=== PATIENT | male | born 1940 | race Caucasian/White ===

== ENCOUNTER 2021-05-11 22:35 | Inpatient (IN) | payer MEDICARE, OTHER ==
[~2021-05-11] VITALS: Ht 175.3 cm; Wt 103.9 kg
[2021-05-11] MEDS ORDERED: METHYL SALICYLATE/MENTHOL TOPICAL OINTMENT 57GM TUBE. TP PRN (23:00)
[2021-05-11] MEDS ORDERED: MAGNESIUM HYDROXIDE 2,400 MG/30 ML ORAL.SUSP. PO PRN (23:00)
[2021-05-11] MEDS ORDERED: ACETAMINOPHEN 325 MG TABLET PO PRN (23:00)
--- NOTE | 2021-05-11 23:08 | NUR ---
Admission Note with Justification for Admission to [facility] Patient admitted to [facility] for protective oversight for emergency stabilization of acute psychiatric crisis. Pt admitted from: [facility]/ Home Mode of arrival: [facility] Accompanied By: [facility] Staff Precipitating behaviors that initiated intake and admission: SI thoughts/plan to jump off balcony at his house; recent family stressors, argument with family members; increased depression, crying spells, and insomnia. Description of failure of out patient attempts at stabilization in previous setting list behavior and medication trials: Put on Effexor, Remeron, and Trazodone; monthly Tele psych appointments, and ER visit. Behaviors and assessment findings upon admission: Pt calm, cooperative, and appropriate during encounter. Pt answers questions readily and appropriately. Pt reports that he currently has SI thoughts with plan to wrap a sheet around his neck and jump off his balcony at home and "pull a Nigel Rigo". Pt reports SI thoughts have been constant recently and have become more intense causing him to seek help at the ER. Pt room swept for contraband and pt placed within LOS to the nurse's station. Plan: Admit for protective oversight for adjustment and stabilization of medications, behaviors and mood. Intense treatment regimen including groups, medication adjustments, therapy, consistent regimen for ADL's, self care, and sleep hygiene. Daily monitoring by Inpatient staff, Psychiatry, and Medical Physician.
[2021-05-11 23:34] VITALS: BP 109/69
[2021-05-12] MEDS ORDERED: CARV25TA PO (00:17)
[2021-05-12] MEDS ORDERED: DOCU100C28 PO (00:17)
[2021-05-12] MEDS ORDERED: ACET500T68 PO (00:17)
[2021-05-12] MEDS ORDERED: CARB1DRO20 OP (00:17)
[2021-05-12] MEDS ORDERED: TIMO5DRO7 OD (00:17)
[2021-05-12] MEDS ORDERED: MELA3TAB43 PO (00:17)
[2021-05-12] MEDS ORDERED: GABA-586 PO (00:17)
[2021-05-12] MEDS ORDERED: FURO20TA3 PO (00:17)
[2021-05-12] MEDS ORDERED: METH-559 PO (00:17)
[2021-05-12] MEDS ORDERED: MIRT-8 PO (00:17)
[2021-05-12] MEDS ORDERED: folic acid PO (00:17)
[2021-05-12] MEDS ORDERED: TRAZ-120 PO (00:17)
[2021-05-12] MEDS ORDERED: LISI-517 PO (00:17)
[2021-05-12] MEDS ORDERED: TAMS0.4C97 PO (00:17)
[2021-05-12] MEDS ORDERED: METH5TAB12 PO (00:17)
[2021-05-12] MEDS ORDERED: VENL37.5 PO (00:17)
[2021-05-12] MEDS ORDERED: LEVE750T41 PO (00:17)
[2021-05-12] MEDS ORDERED: AMLO5TAB4 PO (00:17)
[2021-05-12] MEDS ORDERED: OMEP20CA16 PO (00:17)
[2021-05-12] MEDS ORDERED: ATOR20TA58 PO (00:17)
[2021-05-12] MEDS ORDERED: PRED5DRO20 OS (00:17)
[2021-05-12] MEDS ORDERED: RIBO100T3 PO (00:17)
[2021-05-12] MEDS ORDERED: SODI15DR5 EACHEYE (00:17)
[2021-05-12] MEDS ORDERED: NITR0.4T24 SL (00:17)
[2021-05-12] MEDS ORDERED: ATRO2DRO3 OS (00:17)
[2021-05-12] MEDS ORDERED: CYAN100031 PO (00:17)
[2021-05-12] MEDS ORDERED: ASPI-889 PO (00:17)
[2021-05-12] MEDS ORDERED: SODIUM CHLORIDE 5% OPHTH SOLUTION 15ML BOTTLE. OU PRN (00:30)
[2021-05-12] MEDS ORDERED: METHYLPHENIDATE HCL 5 MG TABLET PO PRN (00:30)
[2021-05-12] MEDS ORDERED: NITROGLYCERIN SUBLINGUAL 0.4 MG BOTTLE OF 25. SL PRN (00:30)
[2021-05-12] MEDS ORDERED: DOCUSATE SODIUM 100 MG CAPSULE PO PRN (00:30)
[2021-05-12] MEDS ORDERED: POTA20TA4 PO (00:35)
[2021-05-12] MEDS ORDERED: MELATONIN 3 MG TABLET PO PRN (00:45)
[2021-05-12] MEDS ORDERED: POLYVINYL ALCOHOL 1.4% OPHTH SOLUTION 15ML BOTTLE. OU PRN (01:00)
[2021-05-12 05:25] VITALS: BP 144/71
--- NOTE | 2021-05-12 06:33 | EKG ---
[address] [address] Test Date: 2021-05-12 Test Time: 05:17:59 Pat Name: SARWAT FERMIN Department: Room: [address] [place] [address] Gender: M Actuarial Associate: : 1940 Requested By: MICKY WHEELER Order Number: [id number] Reading MD: Measurements Intervals [place] Rate: P: NH: QRS: QRSD: T: QT: QTc: Interpretive Statements
[2021-05-12] MEDS: CARVEDILOL 12.5 MG TABLET PO SCH ×2 (08:00→17:00)
[2021-05-12 08:14] LABS: BASO % 1 % (0-3); EOS # 0.2 x10^3/uL (0.0-0.7); EOS % 3 % (0-3); HEMATOCRIT 39.7 % (39.0-53.0); HEMOGLOBIN 13.3 g/dL (13.0-17.5); LYMPH # 0.8 x10^3/uL (1.0-4.8); LYMPH % 15 % (24-48); MEAN CORPUSCULAR HEMOGLOBIN 31 pg (25-35); MEAN CORPUSCULAR HGB CONC 33 g/dL (31-37); MEAN CORPUSCULAR VOLUME 93 fL (79-100); MONO # 0.4 x10^3/uL (0.0-1.1); MONO % 8 % (0-9); NEUT # 4.1 x10^3uL (1.8-7.7); NEUT % 74 % (31-73); PLATELET COUNT 96 x10^3/uL (140-400); RED BLOOD COUNT 4.26 x10^6/uL (4.30-5.70); RED CELL DISTRIBUTION WIDTH 14.4 % (11.5-14.5); WHITE BLOOD COUNT 5.6 x10^3/uL (4.0-11.0)
[2021-05-12 08:16] LABS: ALBUMIN/GLOBULIN RATIO 0.8 (1.0-1.7); CALCIUM 8.1 mg/dL (8.5-10.1); CREATININE 1.2 mg/dL (0.7-1.3); GFR 58.3; MAGNESIUM 2.4 mg/dL (1.8-2.4); POTASSIUM 4.2 mmol/L (3.5-5.1); TOTAL BILIRUBIN 0.3 mg/dL (0.2-1.0)
[2021-05-12] MEDS: levETIRAcetam 500 MG TABLET PO SCH ×2 (08:43→20:07)
[2021-05-12] MEDS: GABAPENTIN 300 MG CAPSULE. PO SCH ×3 (08:44→20:07)
[2021-05-12] MEDS: amLODIPine BESYLATE 5 MG TABLET PO SCH (08:44)
[2021-05-12] MEDS: LISINOPRIL 5 MG TABLET. PO SCH (08:44)
[2021-05-12] MEDS: ASPIRIN ENTERIC COATED 81 MG TABLET.DR. PO SCH (08:44)
[2021-05-12] MEDS: POTASSIUM CHLORIDE 20 MEQ TABLET.ER. PO SCH (08:44)
[2021-05-12] MEDS: TAMSULOSIN 0.4 MG CAP.ER.24H. PO SCH (08:44)
[2021-05-12] MEDS: CYANOCOBALAMIN (VITAMIN B-12) 1,000 MCG TABLET. PO SCH (08:44)
[2021-05-12] MEDS: FOLIC ACID 1 MG TABLET PO SCH (08:45)
[2021-05-12] MEDS: PANTOPRAZOLE 40 MG TABLET. PO SCH (08:45)
[2021-05-12] MEDS: FUROSEMIDE 20 MG TABLET PO SCH (08:45)
[2021-05-12] MEDS: DEXAMETHASONE 0.1% OPHTH SOLUTION 5ML BOTTLE. OS SCH ×4 (09:00→20:07)
[2021-05-12] MEDS: RIBOFLAVIN 100 MG PO SCH (09:00)
[2021-05-12] MEDS: TIMOLOL 0.25% OPHTH SOLUTION 5ML BOTTLE. OD SCH ×2 (09:00→20:06)
[2021-05-12] MEDS ORDERED: VENLAFAXINE XR 37.5 MG CAP.ER.24H. PO SCH (09:00)
[2021-05-12] MEDS: ATROPINE 1% OPHTH SOLUTION 5ML BOTTLE. OS SCH (09:00)
[2021-05-12 12:32] LABS: BACTERIA,URINE FEW /HPF (0-FEW); BILIRUBIN,URINE NEG (NEG); CLARITY,URINE CLEAR; COLOR,URINE YELLOW; GLUCOSE,URINE NEG (NEG); NITRITE,URINE NEG (NEG); RBC,URINE 0 /HPF (0-2); SQUAMOUS EPITHELIAL CELL,UR OCC /LPF; UROBILINOGEN,URINE 0.2 mg/dL (0.2 mg/dL)
[2021-05-12 12:40] LABS: THYROID STIM HORMONE (TSH) 1.545 uIU/mL (0.358-3.740)
[2021-05-12] MEDS ORDERED: DEXTROSE 50% 25 GM / 50ML DISP.SYRIN. IV PRN (13:00)
[2021-05-12 15:56] VITALS: BP 103/58
--- NOTE | 2021-05-12 17:40 | NUR ---
Pt stated he was too tired to get up for breakfast. Pt got up for lunch but didn't eat well and had several somatic complaints. VS 123/63, pulse 63, sat 96% on 2l/nc. pt refused to get up for supper staging he was nauseated and didn't feel well. BP this jf 103/58 and pulse 60Has been compliant with meds and cares. Pt stated he doesn't wear o2 at home. Sat on RA was 85-87. Placed back on 02.
[2021-05-12] MEDS: HYDROCORTISONE 1% TOPICAL OINTMENT 30GM TUBE. TP SCH (20:07)
[2021-05-12] MEDS: ATORVASTATIN CALCIUM 20 MG TABLET PO SCH (20:07)
[2021-05-12] MEDS: MIRTAZAPINE 30 MG TABLET PO SCH (20:07)
[2021-05-12] MEDS: traZODone 50 MG TABLET. PO SCH (20:07)
[2021-05-12] MEDS: METHOCARBAMOL 500 MG TABLET PO PRN (20:11)
[2021-05-12] MEDS ORDERED: MIRTAZAPINE 30 MG TABLET PO SCH (21:00)
--- NOTE | 2021-05-12 21:38 | HP ---
ADMIT DATE: 05/12/2021 PSYCHIATRIC ADMISSION HISTORY/EVALUATION IDENTIFYING DATA: The patient is an 80-year-old male referred to us from the [facility] after he had a psychiatric consult. They are recommending inpatient psychiatric hospitalization for his worsening symptoms of depression and suicidal ideation with a plan to wrap a sheet around his neck and jump off from his balcony. Reportedly, he relates family stressors, arguments between his daughter and grandson and his own medical worsening disability including significant chronic pain, which he feels is undertreated at the [place], legal blindness amongst others. The patient has failed outpatient psychiatric interventions and has had electroconvulsive therapy on 2 separate occasions in the past. The patient's behaviors were deemed dangerous, unmanageable, has failed outpatient psychiatric interventions at the [facility] and referred to us for inpatient psychiatric stabilization. CHIEF COMPLAINT: "Yes I have been very depressed. This started after my and got worse after I lost my vision in both eyes from glaucoma and macular degeneration. I live with my grandson, but he tells me I can turn this around, this is just how I handle things." HISTORY OF PRESENT ILLNESS: Reportedly, patient has a long history of depression, worsening after the of his in 1990 and significantly worse after he became legally blind sometime after that. As noted above, he has had two courses of ECT in the past and currently he is in outpatient treatment at the [facility]. He complains of marked insomnia, feeling hopeless, helpless, worthless, with suicidal ideation and plan as noted above. He has been somewhat paranoid as well. No clear history of zoila. He does have a past history of tobacco abuse and alcohol abuse, currently in remission. Cognitively, he is reasonably intact. PAST PSYCHIATRIC HISTORY: As above. MEDICAL HISTORY: Positive for hypertension, pacemaker in place, hyperlipidemia, BPH, GERD, status post CVA in 2012, chronic pain, type 2 diabetes mellitus, history of PTSD, which reportedly started after he witnessed multiple suicide attempts by his now . History of CHF, neuropathy, legal blindness. CODE STATUS: Full code. ALLERGIES: LABETALOL, LATEX, MORPHINE, METFORMIN. Takes medications whole. DIET: Cardiac. Ambulates up with walker. UA culture is awaited. CURRENT PSYCHOTROPICS: Gabapentin 300 mg t.i.d., Keppra 1500 mg b.i.d., melatonin 3 mg at bedtime p.r.n., Remeron 60 mg at bedtime, which we have reduced to 30 mg at bedtime. I am informed that he was on Remeron for PTSD by the [facility]. Trazodone 150 mg at bedtime, Effexor XR 75 mg daily. FAMILY HISTORY: Noncontributory. SOCIAL HISTORY: The patient is . Past history of alcohol abuse and smoking. No physical, sexual or elder abuse history is noted. He is not known to be a perpetrator. ASSETS: Supportive family, stable living at home with grandson. Reaction to hospitalization, the patient accepting of it. REVIEW OF SYSTEMS: Legal blindness, impaired ambulation, chronic pain. No CV, , GI, ENT system symptoms on review. Met with him in his room at length in the evening of ____. MENTAL STATUS EXAMINATION: The patient is awake, alert, oriented. Speech is coherent, has some latency. Abstraction fair. Computation impaired. Language function intact. Attention span short. Mood and affect depressed. No active suicidal ideation at this time. The patient seems happy to be in inpatient treatment. IMPRESSION: Major depressive disorder, rule out psychotic features; anxiety disorder, unspecified; history of posttraumatic stress disorder; past history of alcohol and nicotine abuse, in remission; chronic pain. Rest diagnoses as noted above. PLAN: Admit to geropsychiatry unit at [facility]. I will see the patient daily individually from a psychiatric standpoint. The patient has been informed that he is not a candidate for ECT any longer because of his medical comorbidities. We will go ahead and reduce the Remeron to 30 mg at bedtime, change Effexor XR 75 mg a day to Cymbalta 30 mg a day given his chronic pain in addition to mood symptoms and increase to 60 mg a day in [address] Chauhan, Neurology for his seizure history. We will make further adjustments as clinically indicated. Estimated length of stay 10 to 12 days. DISPOSITION: Plans possibly back home with outpatient followup at [facility]. LUIS A DR: Keven TID: [id number]
--- NOTE | 2021-05-12 22:05 | PDOC ---
Exam Note: Henry Note: Please also refer to the separate dictated note~for this date of service dictated separately.~Patient seen individually. Discussed the patient with Nursing staff reviewed the chart.~Reviewed interim history and current functioning. Reviewed vital signs,~Labs/ Radiology~and current medications noted below. Continue current treatment with the changes noted in the dictated addendum note Assessment: Vital Signs/I&O: Vital Signs Date Time Temp Pulse Resp B/P (MAP) Pulse Ox O2 Delivery O2 Flow Rate FiO2 05/12/21 17:00 60 103/58 05/12/21 15:56 97.8 24 94 Nasal Cannula 2.0 Labs: Laboratory Tests Test 05/12/21 07:11 05/12/21 11:58 05/12/21 16:36 05/12/21 19:07 White Blood Count 5.6 x10^3/uL (4.0-11.0) Red Blood Count 4.26 x10^6/uL (4.30-5.70) L Hemoglobin 13.3 g/dL (13.0-17.5) Hematocrit 39.7 % (39.0-53.0) Mean Corpuscular Volume 93 fL (79-100) Mean Corpuscular Hemoglobin 31 pg (25-35) Mean Corpuscular Hemoglobin Concent 33 g/dL (31-37) Red Cell Distribution Width 14.4 % (11.5-14.5) Platelet Count 96 x10^3/uL (140-400) L Neutrophils (%) (Auto) 74 % (31-73) H Lymphocytes (%) (Auto) 15 % (24-48) L Monocytes (%) (Auto) 8 % (0-9) Eosinophils (%) (Auto) 3 % (0-3) Basophils (%) (Auto) 1 % (0-3) Neutrophils # (Auto) 4.1 x10^3uL (1.8-7.7) Lymphocytes # (Auto) 0.8 x10^3/uL (1.0-4.8) L Monocytes # (Auto) 0.4 x10^3/uL (0.0-1.1) Eosinophils # (Auto) 0.2 x10^3/uL (0.0-0.7) Basophils # (Auto) 0.0 x10^3/uL (0.0-0.2) D-Dimer (Sravanthi) 0.74 mg/L (0.00-0.50) H Sodium Level 138 mmol/L (136-145) Potassium Level 4.2 mmol/L (3.5-5.1) Chloride Level 100 mmol/L (98-107) Carbon Dioxide Level 32 mmol/L (21-32) Anion Gap 6 (6-14) Blood Urea Nitrogen 13 mg/dL (8-26) Creatinine 1.2 mg/dL (0.7-1.3) Estimated GFR (Cockcroft-Gault) 58.3 BUN/Creatinine Ratio 11 (6-20) Glucose Level 136 mg/dL (70-99) H Calcium Level 8.1 mg/dL (8.5-10.1) L Magnesium Level 2.4 mg/dL (1.8-2.4) Iron Level 60 ug/dL (65-175) L Total Iron Binding Capacity 297 ug/dL (250-450) Iron Saturation 20 % (15-34) Total Bilirubin 0.3 mg/dL (0.2-1.0) Aspartate Amino Transferase (AST) 15 U/L (15-37) Alanine Aminotransferase (ALT) 18 U/L (16-63) Alkaline Phosphatase 101 U/L (46-116) Total Protein 7.0 g/dL (6.4-8.2) Albumin 3.0 g/dL (3.4-5.0) L Albumin/Globulin Ratio 0.8 (1.0-1.7) L Triglycerides Level 195 mg/dL (0-150) H Cholesterol Level 142 mg/dL (0-200) LDL Cholesterol, Calculated 66 mg/dL (0-100) VLDL Cholesterol, Calculated 39 mg/dL (0-40) Non-HDL Cholesterol Calculated 105 mg/dL (0-129) HDL Cholesterol 37 mg/dL (40-60) L Cholesterol/HDL Ratio 3.0 Thyroid Stimulating Hormone (TSH) 1.545 uIU/mL (0.358-3.740) Urine Collection Type Unknown Urine Color Yellow Urine Clarity Clear Urine pH 6.0 Urine Specific [place] 1.020 Urine Protein Neg (NEG-TRACE) Urine Glucose (UA) Neg mg/dL (NEG) Urine Ketones (Stick) Neg mg/dL (NEG) Urine Blood Neg (NEG) Urine Nitrite Neg (NEG) Urine Bilirubin Neg (NEG) Urine Urobilinogen Dipstick 0.2 mg/dL (0.2 mg/dL) Urine Leukocyte Esterase Trace (NEG) Urine RBC 0 /HPF (0-2) Urine WBC 11-20 /HPF (0-4) Urine Squamous Epithelial Cells Occ /LPF Urine Bacteria Few /HPF (0-FEW) Glucose (Fingerstick) 123 mg/dL (70-99) H 137 mg/dL (70-99) H Current Medications: Meds: Current Medications Medications (Trade) Dose Ordered Sig/Shahid Route PRN Reason Start Time Stop Time Status Last Admin Dose Admin Amlodipine Besylate (Norvasc) 5 mg DAILY PO 05/12/21 09:00 05/12/21 08:44 Aspirin (Aspirin Enteric Coated) 81 mg DAILY PO 05/12/21 09:00 05/12/21 08:44 Atorvastatin Calcium (Lipitor) 20 mg QHS PO 05/12/21 21:00 05/12/21 20:07 Atropine Sulfate (Isopto Atropine) 1 drop DAILY OS 05/12/21 09:00 05/12/21 09:00 Furosemide (Lasix) 20 mg DAILY PO 05/12/21 09:00 05/12/21 08:45 Gabapentin (Neurontin) 300 mg TID PO 05/12/21 09:00 05/12/21 20:07 Lisinopril (Prinivil) 5 mg DAILY PO 05/12/21 09:00 05/12/21 08:44 Methocarbamol (Robaxin) 500 mg PRN QHS PRN PO MUSCLE SPASMS 05/12/21 00:30 05/12/21 20:11 Tamsulosin HCl (Flomax) 0.4 mg DAILY PO 05/12/21 09:00 05/12/21 08:44 Timolol Maleate (Timoptic 0.25% Ophth) 1 drop BID OD 05/12/21 09:00 05/12/21 20:06 Carvedilol (Coreg) 12.5 mg BIDWMEALS PO 05/12/21 08:00 05/12/21 08:00 Cyanocobalamin (Vitamin B-12) 1,000 mcg DAILY PO 05/12/21 09:00 05/12/21 08:44 Levetiracetam (Keppra) 1,500 mg BID PO 05/12/21 09:00 05/12/21 20:07 Pantoprazole Sodium (Protonix) 40 mg DAILYAC PO 05/12/21 07:30 05/12/21 08:45 Dexamethasone (Maxidex) 1 drop QID OS 05/12/21 09:00 05/12/21 20:07 Folic Acid (Folic Acid) 1 mg DAILY PO 05/12/21 09:00 05/12/21 08:45 Trazodone HCl (Desyrel) 150 mg QHS PO 05/12/21 21:00 05/12/21 20:07 Venlafaxine HCl (Effexor Xr) 75 mg DAILY PO 05/12/21 09:00 05/12/21 19:29 DC 05/12/21 08:44 Potassium Chloride (Klor-Con) 20 meq DAILY PO 05/12/21 09:00 05/12/21 08:44 Mirtazapine (Remeron) 30 mg QHS PO 05/12/21 21:00 05/12/21 20:07 Hydrocortisone (Cortaid) 1 rocael BID TP 05/12/21 21:00 05/12/21 20:07 I have reviewed the current psychotropics carefully including drug interactions. Risk benefit ratio favors no change other than as noted in my dictated progress note. Diagnosis: Problems: (1) Major depressive disorder (2) Anxiety disorder, unspecified (3) Post traumatic stress disorder MICKY WHEELER MD May 12, 2021 22:05
--- NOTE | 2021-05-12 23:42 | NUR ---
Pt withdrawn to room when approached. Pt with a flat, depressed affect. He continues to report SI thoughts with plan to hang himself and reports that the thoughts have not lessened nor have they increased today. Pt has multiple somatic c/o and reports pain in his back, bilateral shoulders, and head. Pt cooperative with assessment and compliant with medications administered whole. PRN Robaxin administered with HS medications for pain. Pt remains LOS for safety.
--- NOTE | 2021-05-13 01:50 | CONS ---
DATE OF CONSULTATION: 05/12/2021 CONSULTATION FOR MEDICAL MANAGEMENT HISTORY OF PRESENT ILLNESS: The patient is an 80-year-old male patient who was admitted to this facility on account of having suicidal ideation with plan to wrap a sheath around his neck and jump from his balcony as he has family stressors with arguments with family members, increased depression, crying spells, and insomnia. All this in a background of severe major depressive disorder. PAST MEDICAL HISTORY: Medically, the patient has a multitude of medical problems including hypertension, hyperlipidemia, type 2 diabetes mellitus, gastroesophageal reflux disease, benign prostatic hypertrophy. He has bilateral retinal detachment, glaucoma, bilateral cataract extraction, as well as corneal transplant. He is also known to have degenerative disk disease, congestive heart failure, peripheral neuropathy and he is legally blind. PAST SURGICAL HISTORY: Significant for surgery for glaucoma, bilateral cataract extraction, bilateral surgery for retinal detachment and a right corneal transplant. He has also permanent pacemaker placed. ALLERGIES: HE IS ALLERGIC TO LABETALOL, LASIX, METFORMIN AND MORPHINE. MEDICATIONS: He is currently on the following medication, mirtazapine 30 mg at bedtime, trazodone 150 mg at bedtime, atorvastatin 20 mg at bedtime, potassium chloride 20 mEq once a day, venlafaxine 75 mg once a day, folic acid 1 mg once a day. He is on vitamin B2 100 mg once a day, dexamethasone Maxidex 1 drop to both eyes 4 times a day, Keppra 1500 mg twice a day, cyanocobalamin 1000 mcg once a day, timolol maleate 1 drop to both eyes twice a day, tamsulosin 0.4 mg daily, lisinopril 5 mg once a day, gabapentin 300 mg 3 times a day, furosemide 20 mg daily. He is on atropine sulfate 1 drop to both eyes daily, aspirin 81 mg once a day, amlodipine 5 mg daily, carvedilol 12.5 mg twice a day with meals, Protonix 40 mg once a day, artificial tears 1 drop to both eyes twice a day, melatonin 3 mg at bedtime and nitroglycerin 0.4 mg sublingual every 5 minutes x 3 and methocarbamol 500 mg at bedtime, docusate sodium 100 mg twice a day. He is also on Mylanta 15 mL after meals and as needed. FAMILY HISTORY: Noncontributory. SOCIAL HISTORY: He lives with his grandson. He does not smoke, drink alcohol or use recreational drugs. PHYSICAL EXAMINATION: GENERAL: When I examined him, the patient was sitting comfortably in his chair, eating his lunch comfortably, in no apparent distress. He was slightly pale, but no jaundice, cyanosis, no lymphadenopathy, no thyromegaly, no jugular venous distention. No limb edema. VITAL SIGNS: His heart rate was 60, blood pressure 144/71, temperature was 97.7, respiratory rate was 18 and oxygen saturation was 96% on 2-1/2 liters of oxygen, on room air is only 88%. EXAMINATION OF THE HEAD, EYES, EARS, NOSE, AND THROAT: Normocephalic, atraumatic. NECK: Supple. HEART: Normal first and second heart sounds, no gallop or murmur. CHEST: Shows central trachea, ____ reduced expansion, reduced air entry, vesicular sounds. I could not appreciate any crepitation or rhonchi. ABDOMEN: Distended, soft, nontender. NEUROLOGIC: He was awake, alert, responding appropriately. He is legally blind, but all other cranial nerves intact. He moves extremities without difficulty, although he is mostly bedbound, wheelchair bound. LABORATORY DATA: His lab work showed a white cell count 5600, hemoglobin 13, hematocrit 39, MCV 93, and platelet count of 96,000. Serum sodium was 138, potassium 4.2, chloride 100, bicarbonate 32, anion gap of 6, BUN 13, creatinine 1.2. Estimated GFR was 58 mL per minute. His glucose 136, calcium was 8.1, magnesium was 2.4. Serum iron was 60, TIBC was 297 and iron saturation was 20. Total bilirubin, AST, ALT, alkaline phosphatase were normal. Total protein 7, albumin 3. His D-dimer was 0.74. Urinalysis showed the urine was yellow, clear with a pH of 6, specific gravity of 1.020. The urine was negative for protein, glucose, ketones, blood, nitrite and leukocyte esterase. There was trace of leukocyte esterase, 0 rbc's, 11-20 wbc's, occasional epithelial cells and few bacteria. ASSESSMENT AND PLAN: In summary, this is an 80-year-old male patient who was admitted on account of having suicidal ideation with plans to wrap sheath around his neck and jump from his balcony secondary to family stressors with argument with family members, increased depression, crying spells, insomnia. Medically, the patient has a multitude of medical problems including hypertension, hyperlipidemia, benign prostatic hypertrophy, gastroesophageal reflux disease, CVA, type 2 diabetes mellitus, degenerative disk disease, congestive heart failure, neuropathy, he is legally blind. He apparently was treated for bilateral retinal detachment, bilateral cataract extraction, bilateral glaucoma and right corneal transplant. He has also probably has chronic hypoxic respiratory failure. He apparently has smoked for almost 40 years and his oxygen saturation on room air was only 88% that improved to 95% on 2 liters of oxygen. Plan is to continue with oxygen supplementation. I will follow all his lab works that are still pending at the time of this dictation. We should may be check his blood sugar before meals and bedtime, also order a hemoglobin A1c as apparently has not been on any hypoglycemic agent for more than 10 years now after he lost about 100 pounds. PORSHA/MOI DR: Kem TID: [id number]
[2021-05-13 05:46] VITALS: BP 112/63
[2021-05-13] MEDS: FOLIC ACID 1 MG TABLET PO SCH (08:07)
[2021-05-13] MEDS: PANTOPRAZOLE 40 MG TABLET. PO SCH (08:08)
[2021-05-13] MEDS: ASPIRIN ENTERIC COATED 81 MG TABLET.DR. PO SCH (08:08)
[2021-05-13] MEDS: CYANOCOBALAMIN (VITAMIN B-12) 1,000 MCG TABLET. PO SCH (08:08)
[2021-05-13] MEDS: POTASSIUM CHLORIDE 20 MEQ TABLET.ER. PO SCH (08:08)
[2021-05-13] MEDS: TAMSULOSIN 0.4 MG CAP.ER.24H. PO SCH (08:08)
[2021-05-13] MEDS: GABAPENTIN 300 MG CAPSULE. PO SCH ×3 (08:09→21:37)
[2021-05-13] MEDS: LISINOPRIL 5 MG TABLET. PO SCH (08:09)
[2021-05-13] MEDS: CARVEDILOL 12.5 MG TABLET PO SCH ×2 (08:09→17:00)
[2021-05-13] MEDS: DULoxetine HCL 30 MG CAPSULE.DR PO SCH (08:10)
[2021-05-13] MEDS: levETIRAcetam 500 MG TABLET PO SCH ×2 (08:10→21:37)
[2021-05-13] MEDS: amLODIPine BESYLATE 5 MG TABLET PO SCH (08:10)
[2021-05-13] MEDS: FUROSEMIDE 20 MG TABLET PO SCH (08:10)
--- NOTE | 2021-05-13 08:47 | NUR ---
Pt appears very flat and depressed this morning. He sat in front of his breakfast and did not take a single bite despite multiple attempts at encouragement by staff. He spoke minimally to this nurse; stating he was cold, a blanket from the blanket warmer was provided. He answered assessment questions minimally. He confirmed having SI with a plan, but he did not specify the exact plan. He was able and willing to verbally agree to refrain from acting on his SI thoughts today. He has been absent of SI/HI behaviors, absent of VH/AH/delusions. He reports 8/10 pain in the bilat shoulders, lower back, and head. He declined offers of PRN pain relief. His O2 sats remain at of above 91% on 2 LPM NC. Plan of care continues, will pass to next shift. Addendum: 05/13/21 at 0856 by DIALLO REYES RN Pt compliant with medications whole
[2021-05-13] MEDS: TIMOLOL 0.25% OPHTH SOLUTION 5ML BOTTLE. OD SCH ×2 (08:59→21:00)
[2021-05-13] MEDS: ATROPINE 1% OPHTH SOLUTION 5ML BOTTLE. OS SCH (08:59)
[2021-05-13] MEDS: DEXAMETHASONE 0.1% OPHTH SOLUTION 5ML BOTTLE. OS SCH ×4 (08:59→21:00)
[2021-05-13] MEDS: RIBOFLAVIN 100 MG PO SCH (09:00)
[2021-05-13] MEDS: HYDROCORTISONE 1% TOPICAL OINTMENT 30GM TUBE. TP SCH ×2 (09:00→21:39)
--- NOTE | 2021-05-13 09:07 | PDOC ---
Exam Note: Henry Note: This note corrects any errors in my initial psychiatric evaluation dictated under dictation #[id number]. The correct date of admission is 05/12/2021, date of service is 05/12/2021 and date of dictation is 05/12/2021. And also the addendum is to clarify his psychotropic changes. The patient has significant pain problems and we will go ahead and change the Effexor to Cymbalta 30 mg a day for 3 days and 60 mg a day. He was on Ritalin which again could increase his irritability and we will stop it. Reportedly he has had EEG in the past at [facility] and we will get those reports. Nursing staff had called me earlier in the day since he was on Remeron 60 mg h.s. and pharmacy was concerned about this. We have reduced this down to 30 mg h.s. Rest unchanged for now. Assessment: Vital Signs/I&O: Vital Signs Date Time Temp Pulse Resp B/P (MAP) Pulse Ox O2 Delivery O2 Flow Rate FiO2 05/13/21 08:10 68 112/63 05/13/21 05:46 98.1 16 93 Nasal Cannula 2.0 I & O 05/12/21 05/12/21 05/13/21 14:59 22:59 06:59 Intake Total 240 ml 120 ml Balance 240 ml 120 ml Labs: Laboratory Tests Test 05/12/21 11:58 05/12/21 16:36 05/12/21 19:07 05/13/21 07:30 Urine Collection Type Unknown Urine Color Yellow Urine Clarity Clear Urine pH 6.0 Urine Specific Axis 1.020 Urine Protein Neg (NEG-TRACE) Urine Glucose (UA) Neg mg/dL (NEG) Urine Ketones (Stick) Neg mg/dL (NEG) Urine Blood Neg (NEG) Urine Nitrite Neg (NEG) Urine Bilirubin Neg (NEG) Urine Urobilinogen Dipstick 0.2 mg/dL (0.2 mg/dL) Urine Leukocyte Esterase Trace (NEG) Urine RBC 0 /HPF (0-2) Urine WBC 11-20 /HPF (0-4) Urine Squamous Epithelial Cells Occ /LPF Urine Bacteria Few /HPF (0-FEW) Glucose (Fingerstick) 123 mg/dL (70-99) H 137 mg/dL (70-99) H 137 mg/dL (70-99) H Current Medications: Meds: Laboratory Tests Test 05/12/21 11:58 05/12/21 16:36 05/12/21 19:07 05/13/21 07:30 Urine Collection Type Unknown Urine Color Yellow Urine Clarity Clear Urine pH 6.0 Urine Specific Axis 1.020 Urine Protein Neg Urine Glucose (UA) Neg mg/dL Urine Ketones (Stick) Neg mg/dL Urine Blood Neg Urine Nitrite Neg Urine Bilirubin Neg Urine Urobilinogen Dipstick 0.2 mg/dL Urine Leukocyte Esterase Trace Urine RBC 0 /HPF Urine WBC 11-20 /HPF Urine Squamous Epithelial Cells Occ /LPF Urine Bacteria Few /HPF Glucose (Fingerstick) 123 mg/dL 137 mg/dL 137 mg/dL Current Medications Medications (Trade) Dose Ordered Sig/Shahid Route PRN Reason Start Time Stop Time Status Last Admin Dose Admin Acetaminophen (Tylenol) 650 mg PRN Q6HRS PRN PO MILD PAIN / TEMP > 100.3'F 05/11/21 23:00 05/12/21 00:35 DC Multi-Ingredient Ointment (Analgesic Elmo) 1 rocael PRN QID PRN TP MUSCLE PAIN 05/11/21 23:00 Al Hydroxide/Mg Hydroxide (Mylanta Plus Xs) 15 ml PRN AFTMEALHC PRN PO DYSPEPSIA 05/11/21 23:00 Magnesium Hydroxide (Milk Of Magnesia) 2,400 mg PRN QHS PRN PO CONSTIPATION-2ND CHOICE 05/11/21 23:00 Acetaminophen (Tylenol) 1,000 mg PRN Q6HRS PRN PO MILD PAIN 1-3 05/12/21 00:30 Amlodipine Besylate (Norvasc) 5 mg DAILY PO 05/12/21 09:00 05/13/21 08:10 Aspirin (Aspirin Enteric Coated) 81 mg DAILY PO 05/12/21 09:00 05/13/21 08:08 Atorvastatin Calcium (Lipitor) 20 mg QHS PO 05/12/21 21:00 05/12/21 20:07 Atropine Sulfate (Isopto Atropine) 1 drop DAILY OS 05/12/21 09:00 05/13/21 08:59 Docusate Sodium (Colace) 100 mg PRN BID PRN PO CONSTIPATION-1ST CHOICE 05/12/21 00:30 Furosemide (Lasix) 20 mg DAILY PO 05/12/21 09:00 05/13/21 08:10 Gabapentin (Neurontin) 300 mg TID PO 05/12/21 09:00 05/13/21 08:09 Lisinopril (Prinivil) 5 mg DAILY PO 05/12/21 09:00 05/13/21 08:09 Methocarbamol (Robaxin) 500 mg PRN QHS PRN PO MUSCLE SPASMS 05/12/21 00:30 05/12/21 20:11 Nitroglycerin (Nitrostat) 0.4 mg PRN Q5MIN PRN SL CHEST PAIN 05/12/21 00:30 Sodium Chloride (Gibran-5) 1 drop PRN QID PRN OU dry eye CHOICE #2 05/12/21 00:30 Tamsulosin HCl (Flomax) 0.4 mg DAILY PO 05/12/21 09:00 05/13/21 08:08 Timolol Maleate (Timoptic 0.25% Ophth) 1 drop BID OD 05/12/21 09:00 05/13/21 08:59 Artificial Tears (Artificial Tears) 1 drop PRN BID PRN OU DRY EYE CHOICE #1 05/12/21 01:00 Carvedilol (Coreg) 12.5 mg BIDWMEALS PO 05/12/21 08:00 05/13/21 08:09 Cyanocobalamin (Vitamin B-12) 1,000 mcg DAILY PO 05/12/21 09:00 05/13/21 08:08 Levetiracetam (Keppra) 1,500 mg BID PO 05/12/21 09:00 05/13/21 08:10 Pantoprazole Sodium (Protonix) 40 mg DAILYAC PO 05/12/21 07:30 05/13/21 08:08 Dexamethasone (Maxidex) 1 drop QID OS 05/12/21 09:00 05/13/21 08:59 Non-Formulary Medication (Riboflavin (Vitamin B-2)) 100 mg DAILY PO 05/12/21 09:00 UNV Folic Acid (Folic Acid) 1 mg DAILY PO 05/12/21 09:00 05/13/21 08:07 Methylphenidate HCl (Methylphenidate HCl) 5 mg PRN DAILY PRN PO . 05/12/21 00:30 05/12/21 10:56 DC Mirtazapine (Remeron) 60 mg QHS PO 05/12/21 21:00 05/12/21 10:56 DC Trazodone HCl (Desyrel) 150 mg QHS PO 05/12/21 21:00 05/12/21 20:07 Venlafaxine HCl (Effexor Xr) 75 mg DAILY PO 05/12/21 09:00 05/12/21 19:29 DC 05/12/21 08:44 Melatonin (Melatonin) 3 mg PRN QHS PRN PO INSOMNIA 05/12/21 00:45 Potassium Chloride (Klor-Con) 20 meq DAILY PO 05/12/21 09:00 05/13/21 08:08 Mirtazapine (Remeron) 30 mg QHS PO 05/12/21 21:00 05/12/21 20:07 Dextrose (Dextrose 50%-Water Syringe) 12.5 gm PRN Q15MIN PRN IV SEE COMMENTS 05/12/21 13:00 Hydrocortisone (Cortaid) 1 rocael BID TP 05/12/21 21:00 05/12/21 20:07 Duloxetine HCl (Cymbalta) 30 mg DAILY PO 05/13/21 09:00 05/14/21 10:00 05/13/21 08:10 Duloxetine HCl (Cymbalta) 60 mg DAILY PO 05/15/21 09:00 Current Medications Medications (Trade) Dose Ordered Sig/Shahid Route PRN Reason Start Time Stop Time Status Last Admin Dose Admin Atorvastatin Calcium (Lipitor) 20 mg QHS PO 05/12/21 21:00 05/12/21 20:07 Trazodone HCl (Desyrel) 150 mg QHS PO 05/12/21 21:00 05/12/21 20:07 Mirtazapine (Remeron) 30 mg QHS PO 05/12/21 21:00 05/12/21 20:07 Hydrocortisone (Cortaid) 1 rocael BID TP 05/12/21 21:00 05/12/21 20:07 Duloxetine HCl (Cymbalta) 30 mg DAILY PO 05/13/21 09:00 05/14/21 10:00 05/13/21 08:10 I have reviewed the current psychotropics carefully including drug interactions. Risk benefit ratio favors no change other than as noted in my dictated progress note. Diagnosis: Problems: (1) Major depressive disorder (2) Post traumatic stress disorder (3) Anxiety disorder, unspecified (4) Major neurocognitive disorder (5) Dementia, vascular, with delusions (6) Dementia, vascular, with depression MICKY WHEELER MD May 13, 2021 09:07
[2021-05-13 15:20] VITALS: BP 115/63
--- NOTE | 2021-05-13 15:28 | NUR ---
Pt states at this time he only wants to speak to his grandson Laz ([phone]) Addendum: 05/13/21 at 1824 by DIALLO REYES RN Josué's name is Lza Quezada. Pt also gives verbal permission for updates to be given to josué should he call and request.
--- NOTE | 2021-05-13 16:20 | NUR ---
Pt c/o nausea and loss of appetite. He states he wants to lay back down in bed and no longer be in the day room. This nurse encouraged him to at least join the other patients in the dinning room to see if what is prepared for the meal might be appealing to him. Despite encouragement he declined. Pt assisted back to bed. Pt remains LOS across from the nurse station. Dr Mir paged for orders for PRN anti-nausea medication.
[2021-05-13] MEDS: ATORVASTATIN CALCIUM 20 MG TABLET PO SCH (21:37)
[2021-05-13] MEDS: MIRTAZAPINE 30 MG TABLET PO SCH (21:38)
[2021-05-13] MEDS: CYPROHEPTADINE 4 MG TABLET. PO SCH (21:38)
[2021-05-13] MEDS: traZODone 50 MG TABLET. PO SCH (21:38)
--- NOTE | 2021-05-13 22:05 | PDOC ---
Exam Note: Henry Note: Please also refer to the separate dictated note~for this date of service dictated separately.~Patient seen individually. Discussed the patient with Nursing staff reviewed the chart.~Reviewed interim history and current functioning. Reviewed vital signs,~Labs/ Radiology~and current medications noted below. Continue current treatment with the changes noted in the dictated addendum note Assessment: Vital Signs/I&O: Vital Signs Date Time Temp Pulse Resp B/P (MAP) Pulse Ox O2 Delivery O2 Flow Rate FiO2 05/13/21 17:00 60 115/63 05/13/21 15:20 98.6 20 98 05/13/21 05:46 Nasal Cannula 2.0 I & O 0 05/12/21 05/12/21 05/13/21 15:00 23:00 07:00 Intake Total 240 ml 120 ml Balance 240 ml 120 ml Labs: Laboratory Tests Test 05/13/21 07:30 05/13/21 11:08 05/13/21 17:04 05/13/21 19:19 Glucose (Fingerstick) 137 mg/dL (70-99) H 129 mg/dL (70-99) H 148 mg/dL (70-99) H 152 mg/dL (70-99) H Current Medications: Meds: Laboratory Tests Test 05/13/21 07:30 05/13/21 11:08 05/13/21 17:04 05/13/21 19:19 Glucose (Fingerstick) 137 mg/dL 129 mg/dL 148 mg/dL 152 mg/dL Current Medications Medications (Trade) Dose Ordered Sig/Shahid Route PRN Reason Start Time Stop Time Status Last Admin Dose Admin Acetaminophen (Tylenol) 650 mg PRN Q6HRS PRN PO MILD PAIN / TEMP > 100.3'F 05/11/21 23:00 05/12/21 00:35 DC Multi-Ingredient Ointment (Analgesic Hastings) 1 rocael PRN QID PRN TP MUSCLE PAIN 05/11/21 23:00 Al Hydroxide/Mg Hydroxide (Mylanta Plus Xs) 15 ml PRN AFTMEALHC PRN PO DYSPEPSIA 05/11/21 23:00 Magnesium Hydroxide (Milk Of Magnesia) 2,400 mg PRN QHS PRN PO CONSTIPATION-2ND CHOICE 05/11/21 23:00 Acetaminophen (Tylenol) 1,000 mg PRN Q6HRS PRN PO MILD PAIN 1-3 05/12/21 00:30 Amlodipine Besylate (Norvasc) 5 mg DAILY PO 05/12/21 09:00 05/13/21 08:10 Aspirin (Aspirin Enteric Coated) 81 mg DAILY PO 05/12/21 09:00 05/13/21 08:08 Atorvastatin Calcium (Lipitor) 20 mg QHS PO 05/12/21 21:00 05/13/21 21:37 Atropine Sulfate (Isopto Atropine) 1 drop DAILY OS 05/12/21 09:00 05/13/21 08:59 Docusate Sodium (Colace) 100 mg PRN BID PRN PO CONSTIPATION-1ST CHOICE 05/12/21 00:30 Furosemide (Lasix) 20 mg DAILY PO 05/12/21 09:00 05/13/21 08:10 Gabapentin (Neurontin) 300 mg TID PO 05/12/21 09:00 05/13/21 21:37 Lisinopril (Prinivil) 5 mg DAILY PO 05/12/21 09:00 05/13/21 08:09 Methocarbamol (Robaxin) 500 mg PRN QHS PRN PO MUSCLE SPASMS 05/12/21 00:30 05/12/21 20:11 Nitroglycerin (Nitrostat) 0.4 mg PRN Q5MIN PRN SL CHEST PAIN 05/12/21 00:30 Sodium Chloride (Gibran-5) 1 drop PRN QID PRN OU dry eye CHOICE #2 05/12/21 00:30 Tamsulosin HCl (Flomax) 0.4 mg DAILY PO 05/12/21 09:00 05/13/21 08:08 Timolol Maleate (Timoptic 0.25% Ophth) 1 drop BID OD 05/12/21 09:00 05/13/21 08:59 Artificial Tears (Artificial Tears) 1 drop PRN BID PRN OU DRY EYE CHOICE #1 05/12/21 01:00 Carvedilol (Coreg) 12.5 mg BIDWMEALS PO 05/12/21 08:00 05/13/21 17:00 Cyanocobalamin (Vitamin B-12) 1,000 mcg DAILY PO 05/12/21 09:00 05/13/21 08:08 Levetiracetam (Keppra) 1,500 mg BID PO 05/12/21 09:00 05/13/21 21:37 Pantoprazole Sodium (Protonix) 40 mg DAILYAC PO 05/12/21 07:30 05/13/21 08:08 Dexamethasone (Maxidex) 1 drop QID OS 05/12/21 09:00 05/13/21 17:00 Non-Formulary Medication (Riboflavin (Vitamin B-2)) 100 mg DAILY PO 05/12/21 09:00 UNV Folic Acid (Folic Acid) 1 mg DAILY PO 05/12/21 09:00 05/13/21 08:07 Methylphenidate HCl (Methylphenidate HCl) 5 mg PRN DAILY PRN PO . 05/12/21 00:30 05/12/21 10:56 DC Mirtazapine (Remeron) 60 mg QHS PO 05/12/21 21:00 05/12/21 10:56 DC Trazodone HCl (Desyrel) 150 mg QHS PO 05/12/21 21:00 05/13/21 21:38 Venlafaxine HCl (Effexor Xr) 75 mg DAILY PO 05/12/21 09:00 05/12/21 19:29 DC 05/12/21 08:44 Melatonin (Melatonin) 3 mg PRN QHS PRN PO INSOMNIA 05/12/21 00:45 Potassium Chloride (Klor-Con) 20 meq DAILY PO 05/12/21 09:00 05/13/21 08:08 Mirtazapine (Remeron) 30 mg QHS PO 05/12/21 21:00 05/13/21 21:38 Dextrose (Dextrose 50%-Water Syringe) 12.5 gm PRN Q15MIN PRN IV SEE COMMENTS 05/12/21 13:00 Hydrocortisone (Cortaid) 1 rocael BID TP 05/12/21 21:00 05/13/21 21:39 Duloxetine HCl (Cymbalta) 30 mg DAILY PO 05/13/21 09:00 05/14/21 10:00 05/13/21 08:10 Duloxetine HCl (Cymbalta) 60 mg DAILY PO 05/15/21 09:00 Cyproheptadine HCl (Periactin) 2 mg HS PO 05/13/21 21:00 05/13/21 21:38 Aripiprazole (Abilify) 5 mg DAILY PO 05/14/21 09:00 Current Medications Medications (Trade) Dose Ordered Sig/Shahid Route PRN Reason Start Time Stop Time Status Last Admin Dose Admin Duloxetine HCl (Cymbalta) 30 mg DAILY PO 05/13/21 09:00 05/14/21 10:00 05/13/21 08:10 Cyproheptadine HCl (Periactin) 2 mg HS PO 05/13/21 21:00 05/13/21 21:38 I have reviewed the current psychotropics carefully including drug interactions. Risk benefit ratio favors no change other than as noted in my dictated progress note. Diagnosis: Problems: (1) Major depressive disorder (2) Post traumatic stress disorder (3) Anxiety disorder, unspecified (4) Dementia, vascular, with depression (5) Dementia, vascular, with delusions (6) Major neurocognitive disorder MICKY WHEELER MD May 13, 2021 22:05
--- NOTE | 2021-05-14 03:02 | NUR ---
Patient is legally blind and spent most of the shift in his room either laying in his bed or sitting on the side of his bed with some support on his wheelchair. During assessment patient was able to answer questions appropriately and showed no signs of aggression. Patient acknowledged having suicidal ideation, but could not clearly elaborate a plan. He declined all snacks that were proposed but was able to drink a little more water after his meds. PT and OT consults have been placed for patient to be evaluated and the need for a walker established. He is alert and oriented x2 and vitals were within normal limits. He was compliant with night time medications, after which he returned to laying in his bed with eyes closed, breathing visibly and showing no signs of distress. Patient remains on 2L of continuous oxygen via nasal canula because on room air she de-sats to below 80% quickly. He remains a [id number] for safety due to the Oxygen tubing.
[2021-05-14 05:58] VITALS: BP 104/63
[2021-05-14] MEDS: PANTOPRAZOLE 40 MG TABLET. PO SCH (06:09)
--- NOTE | 2021-05-14 08:37 | PDOC ---
Exam Note: Henry Note: This note is a late entry for 05/13/2021 covers elements not covered in my initial note. Subjective: The patient was seen individually in the evening of 05/13/2021 with Sanjuanita BERMUDEZ, discussed and reviewed the chart. He slept 9-3/4 hours previous night. The patient has been depressed, somewhat withdrawn, flat affect, limited interactions. He has complained of nausea, refused breakfast and dinner, had some lunch. We will defer medical management to Dr. Mir for the nausea. He has voiced vague suicidal ideation. No plans, intent or intent verbalized as I questioned him closely on this. He is right across the nursing station and nursing staff confirmed that that have him in line of sight. Review of Systems: Positive for nausea, tiredness, low energy. No CV, , pulmonary, eye system symptoms on review. Mental Status Exam: The patient is reasonably oriented. Speech is coherent, moderate latency, somewhat hard of hearing. Abstraction fair. Computation impaired. Language function intact. Attention span short. Mood and affect depressed. Laboratory Data: Reviewed. 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 Anxiety disorder unspecified. Past history of ECT x2. Post-traumatic stress disorder. Plan: Symptoms of PTSD are from observing his repeatedly trying to end her life. Appetite is poor. We will add Periactin 2 mg h.s. both for stimulating the appetite and for PTSD symptoms. He has been started on Cymbalta 30 mg a day given his chronic pain with plan to increase to 60 mg a day and we will augment with Abilify 5 mg a day. I discussed all this at length with the patient and he expressed understanding. Assessment: Vital Signs/I&O: Vital Signs Date Time Temp Pulse Resp B/P (MAP) Pulse Ox O2 Delivery O2 Flow Rate FiO2 05/14/21 05:58 97.9 59 18 104/63 (77) 98 2.5 05/13/21 05:46 Nasal Cannula I & O 05/13/21 05/13/21 05/14/21 14:59 22:59 06:59 Intake Total 840 ml 0 ml Balance 840 ml 0 ml Labs: Laboratory Tests Test 05/13/21 11:08 05/13/21 17:04 05/13/21 19:19 05/14/21 07:34 Glucose (Fingerstick) 129 mg/dL (70-99) H 148 mg/dL (70-99) H 152 mg/dL (70-99) H 144 mg/dL (70-99) H Current Medications: Meds: Current Medications Medications (Trade) Dose Ordered Sig/Shahid Route PRN Reason Start Time Stop Time Status Last Admin Dose Admin Duloxetine HCl (Cymbalta) 30 mg DAILY PO 05/13/21 09:00 05/14/21 10:00 05/13/21 08:10 Cyproheptadine HCl (Periactin) 2 mg HS PO 05/13/21 21:00 05/13/21 21:38 I have reviewed the current psychotropics carefully including drug interactions. Risk benefit ratio favors no change other than as noted in my dictated progress note. Diagnosis: Problems: (1) History of electroconvulsive therapy (2) Major depressive disorder (3) Post traumatic stress disorder (4) Anxiety disorder, unspecified (5) Dementia, vascular, with depression (6) Dementia, vascular, with delusions (7) Major neurocognitive disorder MICKY WHEELER MD May 14, 2021 08:37
[2021-05-14] MEDS: FUROSEMIDE 20 MG TABLET PO SCH (08:58)
[2021-05-14] MEDS: levETIRAcetam 500 MG TABLET PO SCH ×2 (08:58→21:24)
[2021-05-14] MEDS: ASPIRIN ENTERIC COATED 81 MG TABLET.DR. PO SCH (08:58)
[2021-05-14] MEDS: GABAPENTIN 300 MG CAPSULE. PO SCH ×3 (08:58→21:24)
[2021-05-14] MEDS: ARIPiprazole 5 MG TABLET PO SCH (08:58)
[2021-05-14] MEDS: POTASSIUM CHLORIDE 20 MEQ TABLET.ER. PO SCH (08:58)
[2021-05-14] MEDS: DULoxetine HCL 30 MG CAPSULE.DR PO SCH (08:58)
[2021-05-14] MEDS: LISINOPRIL 5 MG TABLET. PO SCH (08:59)
[2021-05-14] MEDS: amLODIPine BESYLATE 5 MG TABLET PO SCH (08:59)
[2021-05-14] MEDS: FOLIC ACID 1 MG TABLET PO SCH (08:59)
[2021-05-14] MEDS: TAMSULOSIN 0.4 MG CAP.ER.24H. PO SCH (08:59)
[2021-05-14] MEDS: TIMOLOL 0.25% OPHTH SOLUTION 5ML BOTTLE. OD SCH ×2 (09:00→21:00)
[2021-05-14] MEDS: CARVEDILOL 12.5 MG TABLET PO SCH ×2 (09:01→17:13)
[2021-05-14] MEDS: ATROPINE 1% OPHTH SOLUTION 5ML BOTTLE. OS SCH (09:03)
[2021-05-14] MEDS: DEXAMETHASONE 0.1% OPHTH SOLUTION 5ML BOTTLE. OS SCH ×4 (09:03→21:00)
[2021-05-14] MEDS: CYANOCOBALAMIN (VITAMIN B-12) 1,000 MCG TABLET. PO SCH (09:04)
[2021-05-14] MEDS: HYDROCORTISONE 1% TOPICAL OINTMENT 30GM TUBE. TP SCH ×2 (09:04→21:26)
--- NOTE | 2021-05-14 11:51 | NUR ---
WEEKLY ACTIVITY THERAPY NOTE Date of Admission: 05/11/21 Date of AT Assessment: TBD Precipitating behaviors that initiated intake and admission: SI thoughts/plan to jump off balcony at his house; recent family stressors, argument with family members; increased depression, crying spells, and insomnia. Goal aimed: TBD Initial Goal: TBD Weekly progress towards goal: NA Group participation level: NA Weekly highlights: arrived to unit Behaviors observed: new patient Plan: meet/assess Pt Beneficial adaptations:
--- NOTE | 2021-05-14 13:34 | NUR ---
Treatment team note: Pt is sleeping okay but reports a poor appetite. According to nurse, pt scores himself 10/10 on the depression scale and reports feeling SI but has no current plan. Pt does appear to have a flat affect and was willing to agree to a verbal safety contact. Pt informed nursing that if he were to be at home, he would continue with "the Raymond Effect". Pt did attend group with full participation and is pleasant with staff direction. This morning pt was A/O x 2 and was able to work with PT who took pt off his oxygen. Pt reported with the therapist that the hospital prior to [facility] placed him on oxygen. SW will complete PSA and follow up with pt nephew on making plans for when pt discharges. ELOS 14 days.
[2021-05-14] MEDS: MAG HYDROX/AL HYDROX/SIMETH 30 ML ORAL.SUSP PO PRN (15:26)
[2021-05-14 15:31] VITALS: BP 145/75
--- NOTE | 2021-05-14 16:35 | NUR ---
ACTIVITY THERAPY ASSESSMENT Completed based on notes and interview. Pt was laying in his bed with the headboard raised but he was curved on the flat part. He was sleeping but agreeable to speak with PRIMER SUPERVISOR and asked her to lower the head board. He was appreciative and when asked if Pt. needed any reading material or music, Pt. informed PRIMER SUPERVISOR he was legally blind. He shared he lives with his grandson and has a 5 in TV and watches things his grandson buys and he has seen every episode of [employer] and Order. Pt. was open to listening to audiobooks/ pod casts here. 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 When asked why Pt. was here, he explained he was managing depression well until recently, yelling with sons and grandson and terrible pain. He said he'd "rather take the off ramp than to keep going this bad." Pt. has participate din a group since admission but has a tendency to be withdrawn to room. Initial goal aimed to increase engagement and socialization: Pt. will participate in at least five individual or Activity Therapy groups before discharge. Addendum: 05/29/21 at 1352 by RANDAL SALAZAR ACT Goal repeated 05/29
--- NOTE | 2021-05-14 17:00 | NUR ---
Nursing note: Pt has been med compliant and cooperative this shift. He continues to be depressed with SI, but denies a current plan. But states he will continue with his original plan if he were to go home. Pt has c/o nausea today and has not been eating well. PRN mylanta administered. Pt has remained in bed for most of the afternoon. Will continue to monitor.
[2021-05-14] MEDS: ATORVASTATIN CALCIUM 20 MG TABLET PO SCH (21:24)
[2021-05-14] MEDS: MIRTAZAPINE 30 MG TABLET PO SCH (21:24)
[2021-05-14] MEDS: CYPROHEPTADINE 4 MG TABLET. PO SCH (21:24)
[2021-05-14] MEDS: traZODone 50 MG TABLET. PO SCH (21:25)
--- NOTE | 2021-05-14 21:53 | PDOC ---
Exam Note: Henry Note: Please also refer to the separate dictated note~for this date of service dictated separately.~Patient seen individually. Discussed the patient with Nursing staff reviewed the chart.~Reviewed interim history and current functioning. Reviewed vital signs,~Labs/ Radiology~and current medications noted below. Continue current treatment with the changes noted in the dictated addendum note Assessment: Vital Signs/I&O: Vital Signs Date Time Temp Pulse Resp B/P (MAP) Pulse Ox O2 Delivery O2 Flow Rate FiO2 05/14/21 17:13 65 145/75 05/14/21 15:31 98.0 16 92 05/14/21 05:58 2.5 05/13/21 05:46 Nasal Cannula I & O 05/13/21 05/13/21 05/14/21 15:00 23:00 07:00 Intake Total 840 ml 0 ml Balance 840 ml 0 ml Labs: Laboratory Tests Test 05/14/21 07:34 05/14/21 11:24 05/14/21 17:03 05/14/21 19:07 Glucose (Fingerstick) 144 mg/dL (70-99) H 148 mg/dL (70-99) H 142 mg/dL (70-99) H 199 mg/dL (70-99) H Current Medications: Meds: Laboratory Tests Test 05/14/21 07:34 05/14/21 11:24 05/14/21 17:03 05/14/21 19:07 Glucose (Fingerstick) 144 mg/dL 148 mg/dL 142 mg/dL 199 mg/dL Current Medications Medications (Trade) Dose Ordered Sig/Shahid Route PRN Reason Start Time Stop Time Status Last Admin Dose Admin Acetaminophen (Tylenol) 650 mg PRN Q6HRS PRN PO MILD PAIN / TEMP > 100.3'F 05/11/21 23:00 05/12/21 00:35 DC Multi-Ingredient Ointment (Analgesic [place]) 1 rocael PRN QID PRN TP MUSCLE PAIN 05/11/21 23:00 Al Hydroxide/Mg Hydroxide (Mylanta Plus Xs) 15 ml PRN AFTMEALHC PRN PO DYSPEPSIA 05/11/21 23:00 05/14/21 15:26 Magnesium Hydroxide (Milk Of Magnesia) 2,400 mg PRN QHS PRN PO CONSTIPATION-2ND CHOICE 05/11/21 23:00 Acetaminophen (Tylenol) 1,000 mg PRN Q6HRS PRN PO MILD PAIN 1-3 05/12/21 00:30 Amlodipine Besylate (Norvasc) 5 mg DAILY PO 05/12/21 09:00 05/14/21 08:59 Aspirin (Aspirin Enteric Coated) 81 mg DAILY PO 05/12/21 09:00 05/14/21 08:58 Atorvastatin Calcium (Lipitor) 20 mg QHS PO 05/12/21 21:00 05/14/21 21:24 Atropine Sulfate (Isopto Atropine) 1 drop DAILY OS 05/12/21 09:00 05/14/21 09:03 Docusate Sodium (Colace) 100 mg PRN BID PRN PO CONSTIPATION-1ST CHOICE 05/12/21 00:30 Furosemide (Lasix) 20 mg DAILY PO 05/12/21 09:00 05/14/21 08:58 Gabapentin (Neurontin) 300 mg TID PO 05/12/21 09:00 05/14/21 21:24 Lisinopril (Prinivil) 5 mg DAILY PO 05/12/21 09:00 05/14/21 08:59 Methocarbamol (Robaxin) 500 mg PRN QHS PRN PO MUSCLE SPASMS 05/12/21 00:30 05/12/21 20:11 Nitroglycerin (Nitrostat) 0.4 mg PRN Q5MIN PRN SL CHEST PAIN 05/12/21 00:30 Sodium Chloride (Gibran-5) 1 drop PRN QID PRN OU dry eye CHOICE #2 05/12/21 00:30 Tamsulosin HCl (Flomax) 0.4 mg DAILY PO 05/12/21 09:00 05/14/21 08:59 Timolol Maleate (Timoptic 0.25% Ophth) 1 drop BID OD 05/12/21 09:00 05/14/21 09:00 Artificial Tears (Artificial Tears) 1 drop PRN BID PRN OU DRY EYE CHOICE #1 05/12/21 01:00 Carvedilol (Coreg) 12.5 mg BIDWMEALS PO 05/12/21 08:00 05/14/21 17:13 Cyanocobalamin (Vitamin B-12) 1,000 mcg DAILY PO 05/12/21 09:00 05/14/21 09:04 Levetiracetam (Keppra) 1,500 mg BID PO 05/12/21 09:00 05/14/21 21:24 Pantoprazole Sodium (Protonix) 40 mg DAILYAC PO 05/12/21 07:30 05/14/21 06:09 Dexamethasone (Maxidex) 1 drop QID OS 05/12/21 09:00 05/14/21 17:14 Non-Formulary Medication (Riboflavin (Vitamin B-2)) 100 mg DAILY PO 05/12/21 09:00 05/14/21 07:09 DC Folic Acid (Folic Acid) 1 mg DAILY PO 05/12/21 09:00 05/14/21 08:59 Methylphenidate HCl (Methylphenidate HCl) 5 mg PRN DAILY PRN PO . 05/12/21 00:30 05/12/21 10:56 DC Mirtazapine (Remeron) 60 mg QHS PO 05/12/21 21:00 05/12/21 10:56 DC Trazodone HCl (Desyrel) 150 mg QHS PO 05/12/21 21:00 05/14/21 21:25 Venlafaxine HCl (Effexor Xr) 75 mg DAILY PO 05/12/21 09:00 05/12/21 19:29 DC 05/12/21 08:44 Melatonin (Melatonin) 3 mg PRN QHS PRN PO INSOMNIA 05/12/21 00:45 Potassium Chloride (Klor-Con) 20 meq DAILY PO 05/12/21 09:00 05/14/21 08:58 Mirtazapine (Remeron) 30 mg QHS PO 05/12/21 21:00 05/14/21 21:24 Dextrose (Dextrose 50%-Water Syringe) 12.5 gm PRN Q15MIN PRN IV SEE COMMENTS 05/12/21 13:00 Hydrocortisone (Cortaid) 1 rocael BID TP 05/12/21 21:00 05/14/21 21:26 Duloxetine HCl (Cymbalta) 30 mg DAILY PO 05/13/21 09:00 05/14/21 10:00 DC 05/14/21 08:58 Duloxetine HCl (Cymbalta) 60 mg DAILY PO 05/15/21 09:00 Cyproheptadine HCl (Periactin) 2 mg HS PO 05/13/21 21:00 05/14/21 21:24 Aripiprazole (Abilify) 5 mg DAILY PO 05/14/21 09:00 05/14/21 08:58 Current Medications Medications (Trade) Dose Ordered Sig/Shahid Route PRN Reason Start Time Stop Time Status Last Admin Dose Admin Aripiprazole (Abilify) 5 mg DAILY PO 05/14/21 09:00 05/14/21 08:58 I have reviewed the current psychotropics carefully including drug interactions. Risk benefit ratio favors no change other than as noted in my dictated progress note. Diagnosis: Problems: (1) Major depressive disorder (2) Post traumatic stress disorder (3) Anxiety disorder, unspecified (4) Dementia, vascular, with depression (5) Dementia, vascular, with delusions (6) Major neurocognitive disorder (7) History of electroconvulsive therapy MICKY WHEELER MD May 14, 2021 21:53
--- NOTE | 2021-05-15 03:34 | NUR ---
Patient was out of his room today for a change and actually interacted with staff and peers more, rather than keep to himself as before. He was pleasant, smiling and had no suicidal ideations or accompanying plans. He was able to eat all his snacks and was medication compliant without any signs of nausea and vomiting. Patient has been weaned off continuous oxygen and is maintaining oxygen saturations above 90% on room air, but is still on orders for 2L oxygen as needed. After watching some TV, patient returned to his room around 9pm and got into bed with the help of staff. He has remained on his bed resting since then, with eyes closed, normal breaths and no signs of distress.
[2021-05-15 06:14] VITALS: BP 131/68
[2021-05-15] MEDS: PANTOPRAZOLE 40 MG TABLET. PO SCH (06:44)
[2021-05-15] MEDS: levETIRAcetam 500 MG TABLET PO SCH ×2 (08:49→20:25)
[2021-05-15] MEDS: FOLIC ACID 1 MG TABLET PO SCH (08:50)
[2021-05-15] MEDS: FUROSEMIDE 20 MG TABLET PO SCH (08:50)
[2021-05-15] MEDS: CARVEDILOL 12.5 MG TABLET PO SCH ×2 (08:50→17:19)
[2021-05-15] MEDS: DULoxetine HCL 60 MG CAPSULE.DR PO SCH (08:51)
[2021-05-15] MEDS: LISINOPRIL 5 MG TABLET. PO SCH (08:51)
[2021-05-15] MEDS: GABAPENTIN 300 MG CAPSULE. PO SCH ×3 (08:51→20:24)
[2021-05-15] MEDS: POTASSIUM CHLORIDE 20 MEQ TABLET.ER. PO SCH (08:51)
[2021-05-15] MEDS: TIMOLOL 0.25% OPHTH SOLUTION 5ML BOTTLE. OD SCH ×2 (08:52→20:25)
[2021-05-15] MEDS: ASPIRIN ENTERIC COATED 81 MG TABLET.DR. PO SCH (08:52)
[2021-05-15] MEDS: DEXAMETHASONE 0.1% OPHTH SOLUTION 5ML BOTTLE. OS SCH ×4 (08:52→20:25)
[2021-05-15] MEDS: ATROPINE 1% OPHTH SOLUTION 5ML BOTTLE. OS SCH (08:52)
[2021-05-15] MEDS: TAMSULOSIN 0.4 MG CAP.ER.24H. PO SCH (08:52)
[2021-05-15] MEDS: amLODIPine BESYLATE 5 MG TABLET PO SCH (08:52)
[2021-05-15] MEDS: ARIPiprazole 5 MG TABLET PO SCH (08:53)
[2021-05-15] MEDS: HYDROCORTISONE 1% TOPICAL OINTMENT 30GM TUBE. TP SCH ×2 (08:53→20:25)
[2021-05-15] MEDS: CYANOCOBALAMIN (VITAMIN B-12) 1,000 MCG TABLET. PO SCH (08:54)
[2021-05-15] MEDS: ACETAMINOPHEN 500 MG TABLET PO PRN ×2 (10:00→17:34)
--- NOTE | 2021-05-15 13:40 | NUR ---
Nursing note: Pt in dining room at time of AM med pass and assessment. He is pleasant, med compliant and cooperative. He continues to have a depressed affect, though he denied having any depression this AM. Pt also states that his stomach is not bothering him quite as much today and has been able to eat more than he did yesterday. He is currently in the day room for group. Will continue to monitor.
[2021-05-15 15:51] VITALS: BP 104/62
[2021-05-15] MEDS: CYPROHEPTADINE 4 MG TABLET. PO SCH (20:24)
[2021-05-15] MEDS: traZODone 50 MG TABLET. PO SCH (20:24)
[2021-05-15] MEDS: ATORVASTATIN CALCIUM 20 MG TABLET PO SCH (20:24)
[2021-05-15] MEDS: MIRTAZAPINE 30 MG TABLET PO SCH (20:25)
--- NOTE | 2021-05-15 21:04 | CONS ---
DATE OF CONSULTATION: 05/12/2021 NEUROLOGIC CONSULTATION REFERRING PHYSICIAN: Dr. Mitchell/Dr. Mir. REASON FOR CONSULTATION: History of seizure disorder. HISTORY OF PRESENT ILLNESS: This is an 80-year-old right-handed male was, admitted to [facility] yesterday after he presented with a chief complaint of suicidal ideation. The patient stated he has been under extreme stress at home and having a lot of arguments with his family members; however, he thought about jumping from his balcony and wrap his neck with a sheet. The patient has had frequent crying crisis. He has been hopeless and helpless with a history of insomnia and lack of appetite. The patient has had history of seizure disorder, but he does not know what the cause of it. The patient has not had any recent breakthrough seizure. Currently, he complains of global headaches of mild severity. Denies nausea, vomiting, chest pain, shortness of breath or palpitation, dysarthria or dysphagia. 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 FAMILY HISTORY: Noncontributory. SOCIAL HISTORY: The patient lives with his grandson. He denies smoking, alcohol drinking or illicit drug use. CURRENT MEDICATIONS: Cymbalta, Abilify, Periactin, mirtazapine, trazodone, Lipitor, folic acid, levetiracetam 1500 mg twice daily, vitamin B12, eyedrops for glaucoma include timolol maleate, Flomax p.r.n., lisinopril, gabapentin, Lasix, aspirin, amlodipine, carvedilol, Protonix, melatonin, Artificial tears, Robaxin, Colace, Tylenol p.r.n., and magnesium. ALLERGIES: LATEX, LABETALOL, METFORMIN, AND MORPHINE. PHYSICAL EXAMINATION: GENERAL: Obese male in no acute distress. He weighs 103.3 kilos. VITAL SIGNS: Afebrile, temperature is 97.7, oxygen saturation is 93% on 2.5 liters of oxygen. Blood pressure 144/71, respiratory rate 18. HEENT: Normocephalic, atraumatic, otherwise unremarkable. NECK: Supple, negative for carotid bruit, lymphadenopathy or thyromegaly. LUNGS: Clear to A and P. CARDIOVASCULAR: Regular rate and rhythm, normal S1, S2. ABDOMEN: Soft. Bowel sounds positive. EXTREMITIES: Negative for cyanosis, clubbing or pedal edema. NEUROLOGIC: Mental Status: The patient is alert and oriented x 2. The speech is clear. There is no language dysfunction. Memory, judgment and abstracting thinking are fair. The patient denies hallucination or delusion. Cranial Nerves: Visual sterling are full. The pupils are reactive to light and accommodation. Extraocular movements are intact. There is no nystagmus. There is no facial motor or sensory deficit. Hearing is slightly diminished on the right side. The palate is elevated symmetrically. Sternocleidomastoid muscles are powerful bilaterally. The patient shrugs his shoulders symmetrically, protrudes his tongue in the midline without fasciculation or atrophy. Motor Examination: No focal muscle bulk wasting. The tone is normal. The strength is 4/5 throughout. Sensory Examination: Revealed diminished pinprick and light touch senses in patchy distributions in both distal lower extremities consistent with peripheral neuropathy. Gait: The patient ambulated with a wheelchair. LABORATORY DATA: White blood cells 5.6, hemoglobin 13.3, hematocrit 39.7, platelet count is low at 96. Urinalysis: Trace urinary leukocyte esterase with urine white blood cells of 11-20 with a few bacteria. D-dimer is high at 0.74. IMPRESSION 1. Longstanding history of seizure disorder, etiology uncertain, probably due to head injury and fall, but not confirmed that by the patient. The patient reported no recurrent seizure for a while. 2. Multiple medical problems include hypertension, hyperlipidemia, benign prostate hypertrophy, history of congestive heart failure, bilateral retinal detachment required surgery, peripheral neuropathy in the lower extremity, probably secondary to diabetes mellitus and questionable of urinary tract infection. 3. Multiple psychiatric problems include major depression, anxiety disorders with intermittent psychotic features. RECOMMENDATIONS: 1. We will continue with current medical and psychiatric care. 2. We will obtain medical records from previous hospital. 3. PT, OT evaluation. ADOLFO/ERNA/JASPER DR: Phoebe TID: [id number]
--- NOTE | 2021-05-15 21:18 | PN ---
DATE: 05/14/2021 SUBJECTIVE: The patient denies any recurrent or breakthrough seizures since admission. He denies headaches, visual disturbances, nausea, vomiting, chest pain, shortness of breath or palpitation, dysarthria or dysphagia. OBJECTIVE: GENERAL: Obese male in no acute distress. VITAL SIGNS: Blood pressure 112/63, respiratory rate 16, pulse is 68 and regular, oxygen saturation is 93% on 2 liters per minute of oxygen. HEENT: Normocephalic, atraumatic, otherwise unremarkable. NECK: Supple, negative for carotid bruit, lymphadenopathy or thyromegaly. LUNGS: Clear to A and P. HEART: Regular rate and rhythm, normal S1, S2. ABDOMEN: Soft. Bowel sounds positive. EXTREMITIES: Negative for cyanosis, clubbing or pedal edema. NEUROLOGIC: Mental status: The patient is alert and oriented x 2. The speech is fluent. There is no language dysfunction. Memory, judgment and abstracting thinkings are fair. The patient denies hallucination or delusion. Cranial nerves: The pupils are equal and sluggishly reactive to light. Extraocular movements are intact. There is no nystagmus. There is no facial motor or sensory deficit. The patient is legally blind. He sees only movement of my hands in front of his face. He could not count my fingers correctly. The palate is elevated symmetrically. Sternocleidomastoid muscles are powerful bilaterally. The patient shrugs his shoulders symmetrically, protrudes his tongue in the midline without fasciculation or atrophy. Motor Examination: No focal muscle bulk wasting. The tone is normal. The strength is 4/5 throughout. Sensory Examination: Revealed a normal diminished pinprick and light touch senses in patchy distributions in both distal lower extremities. Deep tendon reflexes were symmetric and hypoactive with absent Achilles responses. Gait: The patient had unsteady stance. IMPRESSION: 1. Longstanding history of a seizure disorder, etiology uncertain, probably due to head injuries; however, the patient does not recall last seizure. 2. Multiple medical and psychiatric care as outlined above. RECOMMENDATIONS: 1. Continue with current medical and psychiatric care. 2. We will obtain medical records from his previous physician regarding his seizure disorder. YOSELYN/JASPER DR: Phoebe TID: [id number]
--- NOTE | 2021-05-15 21:59 | PDOC ---
Exam Note: Henry Note: Please also refer to the separate dictated note~for this date of service dictated separately.~Patient seen individually. Discussed the patient with Nursing staff reviewed the chart.~Reviewed interim history and current functioning. Reviewed vital signs,~Labs/ Radiology~and current medications noted below. Continue current treatment with the changes noted in the dictated addendum note Assessment: Vital Signs/I&O: Vital Signs Date Time Temp Pulse Resp B/P (MAP) Pulse Ox O2 Delivery O2 Flow Rate FiO2 05/15/21 17:19 60 104/62 05/15/21 15:51 97.7 20 96 05/14/21 05:58 2.5 05/13/21 05:46 Nasal Cannula I & O 05/14/21 05/14/21 05/15/21 15:00 23:00 07:00 Intake Total 600 ml 360 ml 240 ml Balance 600 ml 360 ml 240 ml Labs: Laboratory Tests Test 05/15/21 07:33 05/15/21 11:56 05/15/21 16:45 05/15/21 19:38 Glucose (Fingerstick) 142 mg/dL (70-99) H 188 mg/dL (70-99) H 120 mg/dL (70-99) H 188 mg/dL (70-99) H Current Medications: Meds: Laboratory Tests Test 05/15/21 07:33 05/15/21 11:56 05/15/21 16:45 05/15/21 19:38 Glucose (Fingerstick) 142 mg/dL 188 mg/dL 120 mg/dL 188 mg/dL Current Medications Medications (Trade) Dose Ordered Sig/Shahid Route PRN Reason Start Time Stop Time Status Last Admin Dose Admin Acetaminophen (Tylenol) 650 mg PRN Q6HRS PRN PO MILD PAIN / TEMP > 100.3'F 05/11/21 23:00 05/12/21 00:35 DC Multi-Ingredient Ointment (Analgesic [place]) 1 rocael PRN QID PRN TP MUSCLE PAIN 05/11/21 23:00 Al Hydroxide/Mg Hydroxide (Mylanta Plus Xs) 15 ml PRN AFTMEALHC PRN PO DYSPEPSIA 05/11/21 23:00 05/14/21 15:26 Magnesium Hydroxide (Milk Of Magnesia) 2,400 mg PRN QHS PRN PO CONSTIPATION-2ND CHOICE 05/11/21 23:00 Acetaminophen (Tylenol) 1,000 mg PRN Q6HRS PRN PO MILD PAIN 1-3 05/12/21 00:30 05/15/21 17:34 Amlodipine Besylate (Norvasc) 5 mg DAILY PO 05/12/21 09:00 05/15/21 08:52 Aspirin (Aspirin Enteric Coated) 81 mg DAILY PO 05/12/21 09:00 05/15/21 08:52 Atorvastatin Calcium (Lipitor) 20 mg QHS PO 05/12/21 21:00 05/15/21 20:24 Atropine Sulfate (Isopto Atropine) 1 drop DAILY OS 05/12/21 09:00 05/15/21 08:52 Docusate Sodium (Colace) 100 mg PRN BID PRN PO CONSTIPATION-1ST CHOICE 05/12/21 00:30 Furosemide (Lasix) 20 mg DAILY PO 05/12/21 09:00 05/15/21 08:50 Gabapentin (Neurontin) 300 mg TID PO 05/12/21 09:00 05/15/21 20:24 Lisinopril (Prinivil) 5 mg DAILY PO 05/12/21 09:00 05/15/21 08:51 Methocarbamol (Robaxin) 500 mg PRN QHS PRN PO MUSCLE SPASMS 05/12/21 00:30 05/12/21 20:11 Nitroglycerin (Nitrostat) 0.4 mg PRN Q5MIN PRN SL CHEST PAIN 05/12/21 00:30 Sodium Chloride (Gibran-5) 1 drop PRN QID PRN OU dry eye CHOICE #2 05/12/21 00:30 Tamsulosin HCl (Flomax) 0.4 mg DAILY PO 05/12/21 09:00 05/15/21 08:52 Timolol Maleate (Timoptic 0.25% Ophth) 1 drop BID OD 05/12/21 09:00 05/15/21 20:25 Artificial Tears (Artificial Tears) 1 drop PRN BID PRN OU DRY EYE CHOICE #1 05/12/21 01:00 Carvedilol (Coreg) 12.5 mg BIDWMEALS PO 05/12/21 08:00 05/15/21 17:19 Cyanocobalamin (Vitamin B-12) 1,000 mcg DAILY PO 05/12/21 09:00 05/15/21 08:54 Levetiracetam (Keppra) 1,500 mg BID PO 05/12/21 09:00 05/15/21 20:25 Pantoprazole Sodium (Protonix) 40 mg DAILYAC PO 05/12/21 07:30 05/15/21 06:44 Dexamethasone (Maxidex) 1 drop QID OS 05/12/21 09:00 05/15/21 20:25 Non-Formulary Medication (Riboflavin (Vitamin B-2)) 100 mg DAILY PO 05/12/21 09:00 05/14/21 07:09 DC Folic Acid (Folic Acid) 1 mg DAILY PO 05/12/21 09:00 05/15/21 08:50 Methylphenidate HCl (Methylphenidate HCl) 5 mg PRN DAILY PRN PO . 05/12/21 00:30 05/12/21 10:56 DC Mirtazapine (Remeron) 60 mg QHS PO 05/12/21 21:00 05/12/21 10:56 DC Trazodone HCl (Desyrel) 150 mg QHS PO 05/12/21 21:00 05/15/21 20:24 Venlafaxine HCl (Effexor Xr) 75 mg DAILY PO 05/12/21 09:00 05/12/21 19:29 DC 05/12/21 08:44 Melatonin (Melatonin) 3 mg PRN QHS PRN PO INSOMNIA 05/12/21 00:45 Potassium Chloride (Klor-Con) 20 meq DAILY PO 05/12/21 09:00 05/15/21 08:51 Mirtazapine (Remeron) 30 mg QHS PO 05/12/21 21:00 05/15/21 20:25 Dextrose (Dextrose 50%-Water Syringe) 12.5 gm PRN Q15MIN PRN IV SEE COMMENTS 05/12/21 13:00 Hydrocortisone (Cortaid) 1 rocael BID TP 05/12/21 21:00 05/15/21 08:53 Duloxetine HCl (Cymbalta) 30 mg DAILY PO 05/13/21 09:00 05/14/21 10:00 DC 05/14/21 08:58 Duloxetine HCl (Cymbalta) 60 mg DAILY PO 05/15/21 09:00 05/15/21 08:51 Cyproheptadine HCl (Periactin) 2 mg HS PO 05/13/21 21:00 05/15/21 20:24 Aripiprazole (Abilify) 5 mg DAILY PO 05/14/21 09:00 05/15/21 08:53 Current Medications Medications (Trade) Dose Ordered Sig/Shahid Route PRN Reason Start Time Stop Time Status Last Admin Dose Admin Duloxetine HCl (Cymbalta) 60 mg DAILY PO 05/15/21 09:00 05/15/21 08:51 I have reviewed the current psychotropics carefully including drug interactions. Risk benefit ratio favors no change other than as noted in my dictated progress note. Diagnosis: Problems: (1) Major depressive disorder (2) Post traumatic stress disorder (3) Anxiety disorder, unspecified (4) Dementia, vascular, with depression (5) Dementia, vascular, with delusions (6) Major neurocognitive disorder MICKY WHEELER MD May 15, 2021 21:59
--- NOTE | 2021-05-15 22:11 | NUR ---
Pt withdrawn to his room all evening. Pt calm and cooperative when approached. Compliant with whole medications. Pt denies SI, stated that after seeing the other patients on the unit he does not feel like he belongs here. Pt stated that he initially became depressed in 2000. Pt stated that his in 1998 and on January 29, 2001, he lost his vision which made him lose his job and his career. Pt stated that he has been battling depression since then. Pt stated he is ready to discharge back home with his grandson.
[2021-05-16 05:46] VITALS: BP 113/55
--- NOTE | 2021-05-16 08:01 | PDOC ---
Exam Note: Henry Note: This note is a late entry for 05/14/2021 covers elements not covered in my initial note. Subjective: The patient was reviewed in the morning of 05/14/2021 for a treatment team meeting with Shagufta Gonzales, Nasreen Haddad (social director), Lillie Al, [employer], Latesha, activity therapy and Steffany BERMUDEZ, discussed and reviewed the chart. He slept 8-1/2 hours previous night. The patient appears more confused during the day on 05/14. He remains on 2 L oxygen, did attend group activities in the morning. We will obtain records from [facility]. Review of Systems: No CV, , pulmonary, eye system symptoms on review. Mental Status Exam: The patient is reasonably oriented. Speech is coherent. Abstraction fair. Computation impaired. Language function intact. Attention span short. Mood and affect depressed. Denies active suicidal ideation. Laboratory Data: Reviewed. 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 Anxiety disorder unspecified. Post-traumatic stress disorder. Plan: Continue Cymbalta. Increase gradually to 60 mg a day. Maintain Periactin 2 mg h.s. to stimulate appetite. Appetite is better. Continue Abilify 5 mg a day to augment Cymbalta. Maintain Remeron, trazodone, gabapentin, melatonin and he is on Keppra for his seizures. Adjust further as clinically indicated. Assessment: Vital Signs/I&O: Vital Signs Date Time Temp Pulse Resp B/P (MAP) Pulse Ox O2 Delivery O2 Flow Rate FiO2 05/16/21 05:46 97.7 63 16 113/55 (74) 92 05/14/21 05:58 2.5 05/13/21 05:46 Nasal Cannula I & O 05/15/21 05/15/21 05/16/21 14:59 22:59 06:59 Intake Total 720 ml 240 ml 240 ml Balance 720 ml 240 ml 240 ml Labs: Laboratory Tests Test 05/15/21 11:56 05/15/21 16:45 05/15/21 19:38 05/16/21 07:32 Glucose (Fingerstick) 188 mg/dL (70-99) H 120 mg/dL (70-99) H 188 mg/dL (70-99) H 154 mg/dL (70-99) H Current Medications: Meds: Laboratory Tests Test 05/15/21 11:56 05/15/21 16:45 05/15/21 19:38 05/16/21 07:32 Glucose (Fingerstick) 188 mg/dL 120 mg/dL 188 mg/dL 154 mg/dL Current Medications Medications (Trade) Dose Ordered Sig/Shahid Route PRN Reason Start Time Stop Time Status Last Admin Dose Admin Acetaminophen (Tylenol) 650 mg PRN Q6HRS PRN PO MILD PAIN / TEMP > 100.3'F 05/11/21 23:00 05/12/21 00:35 DC Multi-Ingredient Ointment (Analgesic Echo) 1 rocael PRN QID PRN TP MUSCLE PAIN 05/11/21 23:00 Al Hydroxide/Mg Hydroxide (Mylanta Plus Xs) 15 ml PRN AFTMEALHC PRN PO DYSPEPSIA 05/11/21 23:00 05/14/21 15:26 Magnesium Hydroxide (Milk Of Magnesia) 2,400 mg PRN QHS PRN PO CONSTIPATION-2ND CHOICE 05/11/21 23:00 Acetaminophen (Tylenol) 1,000 mg PRN Q6HRS PRN PO MILD PAIN 1-3 05/12/21 00:30 05/15/21 17:34 Amlodipine Besylate (Norvasc) 5 mg DAILY PO 05/12/21 09:00 05/15/21 08:52 Aspirin (Aspirin Enteric Coated) 81 mg DAILY PO 05/12/21 09:00 05/15/21 08:52 Atorvastatin Calcium (Lipitor) 20 mg QHS PO 05/12/21 21:00 05/15/21 20:24 Atropine Sulfate (Isopto Atropine) 1 drop DAILY OS 05/12/21 09:00 05/15/21 08:52 Docusate Sodium (Colace) 100 mg PRN BID PRN PO CONSTIPATION-1ST CHOICE 05/12/21 00:30 Furosemide (Lasix) 20 mg DAILY PO 05/12/21 09:00 05/15/21 08:50 Gabapentin (Neurontin) 300 mg TID PO 05/12/21 09:00 05/15/21 20:24 Lisinopril (Prinivil) 5 mg DAILY PO 05/12/21 09:00 05/15/21 08:51 Methocarbamol (Robaxin) 500 mg PRN QHS PRN PO MUSCLE SPASMS 05/12/21 00:30 05/12/21 20:11 Nitroglycerin (Nitrostat) 0.4 mg PRN Q5MIN PRN SL CHEST PAIN 05/12/21 00:30 Sodium Chloride (Gibran-5) 1 drop PRN QID PRN OU dry eye CHOICE #2 05/12/21 00:30 Tamsulosin HCl (Flomax) 0.4 mg DAILY PO 05/12/21 09:00 05/15/21 08:52 Timolol Maleate (Timoptic 0.25% Ophth) 1 drop BID OD 05/12/21 09:00 05/15/21 20:25 Artificial Tears (Artificial Tears) 1 drop PRN BID PRN OU DRY EYE CHOICE #1 05/12/21 01:00 Carvedilol (Coreg) 12.5 mg BIDWMEALS PO 05/12/21 08:00 05/15/21 17:19 Cyanocobalamin (Vitamin B-12) 1,000 mcg DAILY PO 05/12/21 09:00 05/15/21 08:54 Levetiracetam (Keppra) 1,500 mg BID PO 05/12/21 09:00 05/15/21 20:25 Pantoprazole Sodium (Protonix) 40 mg DAILYAC PO 05/12/21 07:30 05/15/21 06:44 Dexamethasone (Maxidex) 1 drop QID OS 05/12/21 09:00 05/15/21 20:25 Non-Formulary Medication (Riboflavin (Vitamin B-2)) 100 mg DAILY PO 05/12/21 09:00 05/14/21 07:09 DC Folic Acid (Folic Acid) 1 mg DAILY PO 05/12/21 09:00 05/15/21 08:50 Methylphenidate HCl (Methylphenidate HCl) 5 mg PRN DAILY PRN PO . 05/12/21 00:30 05/12/21 10:56 DC Mirtazapine (Remeron) 60 mg QHS PO 05/12/21 21:00 05/12/21 10:56 DC Trazodone HCl (Desyrel) 150 mg QHS PO 05/12/21 21:00 05/15/21 20:24 Venlafaxine HCl (Effexor Xr) 75 mg DAILY PO 05/12/21 09:00 05/12/21 19:29 DC 05/12/21 08:44 Melatonin (Melatonin) 3 mg PRN QHS PRN PO INSOMNIA 05/12/21 00:45 Potassium Chloride (Klor-Con) 20 meq DAILY PO 05/12/21 09:00 05/15/21 08:51 Mirtazapine (Remeron) 30 mg QHS PO 05/12/21 21:00 05/15/21 20:25 Dextrose (Dextrose 50%-Water Syringe) 12.5 gm PRN Q15MIN PRN IV SEE COMMENTS 05/12/21 13:00 Hydrocortisone (Cortaid) 1 rocael BID TP 05/12/21 21:00 05/15/21 08:53 Duloxetine HCl (Cymbalta) 30 mg DAILY PO 05/13/21 09:00 05/14/21 10:00 DC 05/14/21 08:58 Duloxetine HCl (Cymbalta) 60 mg DAILY PO 05/15/21 09:00 05/15/21 08:51 Cyproheptadine HCl (Periactin) 2 mg HS PO 05/13/21 21:00 05/15/21 20:24 Aripiprazole (Abilify) 5 mg DAILY PO 05/14/21 09:00 05/15/21 08:53 Current Medications Medications (Trade) Dose Ordered Sig/Shahid Route PRN Reason Start Time Stop Time Status Last Admin Dose Admin Duloxetine HCl (Cymbalta) 60 mg DAILY PO 05/15/21 09:00 05/15/21 08:51 I have reviewed the current psychotropics carefully including drug interactions. Risk benefit ratio favors no change other than as noted in my dictated progress note. Diagnosis: Problems: (1) Major depressive disorder (2) Post traumatic stress disorder (3) Anxiety disorder, unspecified (4) Dementia, vascular, with depression (5) Dementia, vascular, with delusions (6) Major neurocognitive disorder MICKY WHEELER MD May 16, 2021 08:01
--- NOTE | 2021-05-16 08:18 | PDOC ---
Exam Note: Henry Note: This note is a late entry for 05/15/2021 covers elements not covered in my initial note. Subjective: The patient was seen individually in the evening of 05/15/2021 with Steffany BERMUDEZ, discussed and reviewed the chart. He slept 6-1/2 hours previous night. The patient did well last night, smiling. I was out in the dayroom today eating ice-cream and snacks. This evening I met him in his room. He was lying in bed, complains of severe headache. We will defer to Dr. Mir. Mood is better today, compliant with medications and he ate all his meals which is quite an improvement. Review of Systems: Positive for headache. No CV, , pulmonary, eye system symptoms on review. Nausea is much better. Mental Status Exam: The patient is oriented to himself and situation. Speech has some latency, coherent. Abstraction fair. Computation impaired. Language function intact. Attention span short. Mood and affect improved. Laboratory Data: Reviewed. 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 Anxiety disorder unspecified. Plan: We are increasing the Cymbalta augmenting it with Abilify. Periactin is being used for appetite stimulator. Remeron is 30 mg h.s. along with trazodone and he remains on Keppra for his seizures. Adjust further as clinically indicated. Assessment: Vital Signs/I&O: Vital Signs Date Time Temp Pulse Resp B/P (MAP) Pulse Ox O2 Delivery O2 Flow Rate FiO2 05/16/21 05:46 97.7 63 16 113/55 (74) 92 05/14/21 05:58 2.5 05/13/21 05:46 Nasal Cannula I & O 05/15/21 05/15/21 05/16/21 15:00 23:00 07:00 Intake Total 720 ml 240 ml 240 ml Balance 720 ml 240 ml 240 ml Labs: Laboratory Tests Test 05/15/21 11:56 05/15/21 16:45 05/15/21 19:38 05/16/21 07:32 Glucose (Fingerstick) 188 mg/dL (70-99) H 120 mg/dL (70-99) H 188 mg/dL (70-99) H 154 mg/dL (70-99) H Current Medications: Meds: Laboratory Tests Test 05/15/21 11:56 05/15/21 16:45 05/15/21 19:38 05/16/21 07:32 Glucose (Fingerstick) 188 mg/dL 120 mg/dL 188 mg/dL 154 mg/dL Current Medications Medications (Trade) Dose Ordered Sig/Shahid Route PRN Reason Start Time Stop Time Status Last Admin Dose Admin Acetaminophen (Tylenol) 650 mg PRN Q6HRS PRN PO MILD PAIN / TEMP > 100.3'F 05/11/21 23:00 05/12/21 00:35 DC Multi-Ingredient Ointment (Analgesic [place]) 1 rocael PRN QID PRN TP MUSCLE PAIN 05/11/21 23:00 Al Hydroxide/Mg Hydroxide (Mylanta Plus Xs) 15 ml PRN AFTMEALHC PRN PO DYSPEPSIA 05/11/21 23:00 05/14/21 15:26 Magnesium Hydroxide (Milk Of Magnesia) 2,400 mg PRN QHS PRN PO CONSTIPATION-2ND CHOICE 05/11/21 23:00 Acetaminophen (Tylenol) 1,000 mg PRN Q6HRS PRN PO MILD PAIN 1-3 05/12/21 00:30 05/15/21 17:34 Amlodipine Besylate (Norvasc) 5 mg DAILY PO 05/12/21 09:00 05/15/21 08:52 Aspirin (Aspirin Enteric Coated) 81 mg DAILY PO 05/12/21 09:00 05/15/21 08:52 Atorvastatin Calcium (Lipitor) 20 mg QHS PO 05/12/21 21:00 05/15/21 20:24 Atropine Sulfate (Isopto Atropine) 1 drop DAILY OS 05/12/21 09:00 05/15/21 08:52 Docusate Sodium (Colace) 100 mg PRN BID PRN PO CONSTIPATION-1ST CHOICE 05/12/21 00:30 Furosemide (Lasix) 20 mg DAILY PO 05/12/21 09:00 05/15/21 08:50 Gabapentin (Neurontin) 300 mg TID PO 05/12/21 09:00 05/15/21 20:24 Lisinopril (Prinivil) 5 mg DAILY PO 05/12/21 09:00 05/15/21 08:51 Methocarbamol (Robaxin) 500 mg PRN QHS PRN PO MUSCLE SPASMS 05/12/21 00:30 05/12/21 20:11 Nitroglycerin (Nitrostat) 0.4 mg PRN Q5MIN PRN SL CHEST PAIN 05/12/21 00:30 Sodium Chloride (Gibran-5) 1 drop PRN QID PRN OU dry eye CHOICE #2 05/12/21 00:30 Tamsulosin HCl (Flomax) 0.4 mg DAILY PO 05/12/21 09:00 05/15/21 08:52 Timolol Maleate (Timoptic 0.25% Ophth) 1 drop BID OD 05/12/21 09:00 05/15/21 20:25 Artificial Tears (Artificial Tears) 1 drop PRN BID PRN OU DRY EYE CHOICE #1 05/12/21 01:00 Carvedilol (Coreg) 12.5 mg BIDWMEALS PO 05/12/21 08:00 05/15/21 17:19 Cyanocobalamin (Vitamin B-12) 1,000 mcg DAILY PO 05/12/21 09:00 05/15/21 08:54 Levetiracetam (Keppra) 1,500 mg BID PO 05/12/21 09:00 05/15/21 20:25 Pantoprazole Sodium (Protonix) 40 mg DAILYAC PO 05/12/21 07:30 05/15/21 06:44 Dexamethasone (Maxidex) 1 drop QID OS 05/12/21 09:00 05/15/21 20:25 Non-Formulary Medication (Riboflavin (Vitamin B-2)) 100 mg DAILY PO 05/12/21 09:00 05/14/21 07:09 DC Folic Acid (Folic Acid) 1 mg DAILY PO 05/12/21 09:00 05/15/21 08:50 Methylphenidate HCl (Methylphenidate HCl) 5 mg PRN DAILY PRN PO . 05/12/21 00:30 05/12/21 10:56 DC Mirtazapine (Remeron) 60 mg QHS PO 05/12/21 21:00 05/12/21 10:56 DC Trazodone HCl (Desyrel) 150 mg QHS PO 05/12/21 21:00 05/15/21 20:24 Venlafaxine HCl (Effexor Xr) 75 mg DAILY PO 05/12/21 09:00 05/12/21 19:29 DC 05/12/21 08:44 Melatonin (Melatonin) 3 mg PRN QHS PRN PO INSOMNIA 05/12/21 00:45 Potassium Chloride (Klor-Con) 20 meq DAILY PO 05/12/21 09:00 05/15/21 08:51 Mirtazapine (Remeron) 30 mg QHS PO 05/12/21 21:00 05/15/21 20:25 Dextrose (Dextrose 50%-Water Syringe) 12.5 gm PRN Q15MIN PRN IV SEE COMMENTS 05/12/21 13:00 Hydrocortisone (Cortaid) 1 rocael BID TP 05/12/21 21:00 05/15/21 08:53 Duloxetine HCl (Cymbalta) 30 mg DAILY PO 05/13/21 09:00 05/14/21 10:00 DC 05/14/21 08:58 Duloxetine HCl (Cymbalta) 60 mg DAILY PO 05/15/21 09:00 05/15/21 08:51 Cyproheptadine HCl (Periactin) 2 mg HS PO 05/13/21 21:00 05/15/21 20:24 Aripiprazole (Abilify) 5 mg DAILY PO 05/14/21 09:00 05/15/21 08:53 Current Medications Medications (Trade) Dose Ordered Sig/Shahid Route PRN Reason Start Time Stop Time Status Last Admin Dose Admin Duloxetine HCl (Cymbalta) 60 mg DAILY PO 05/15/21 09:00 05/15/21 08:51 I have reviewed the current psychotropics carefully including drug interactions. Risk benefit ratio favors no change other than as noted in my dictated progress note. Diagnosis: Problems: (1) Major depressive disorder (2) Post traumatic stress disorder (3) Anxiety disorder, unspecified (4) Dementia, vascular, with depression (5) Dementia, vascular, with delusions (6) Major neurocognitive disorder MICKY WHEELER MD May 16, 2021 08:18
[2021-05-16] MEDS: ATROPINE 1% OPHTH SOLUTION 5ML BOTTLE. OS SCH (09:00)
[2021-05-16] MEDS: HYDROCORTISONE 1% TOPICAL OINTMENT 30GM TUBE. TP SCH ×2 (09:00→21:19)
[2021-05-16] MEDS: TIMOLOL 0.25% OPHTH SOLUTION 5ML BOTTLE. OD SCH ×2 (09:00→21:00)
[2021-05-16] MEDS: ASPIRIN ENTERIC COATED 81 MG TABLET.DR. PO SCH (09:00)
[2021-05-16] MEDS: levETIRAcetam 500 MG TABLET PO SCH ×2 (09:40→21:19)
[2021-05-16] MEDS: FUROSEMIDE 20 MG TABLET PO SCH (09:40)
[2021-05-16] MEDS: ARIPiprazole 5 MG TABLET PO SCH (09:40)
[2021-05-16] MEDS: DULoxetine HCL 60 MG CAPSULE.DR PO SCH (09:40)
[2021-05-16] MEDS: CYANOCOBALAMIN (VITAMIN B-12) 1,000 MCG TABLET. PO SCH (09:41)
[2021-05-16] MEDS: amLODIPine BESYLATE 5 MG TABLET PO SCH (09:41)
[2021-05-16] MEDS: POTASSIUM CHLORIDE 20 MEQ TABLET.ER. PO SCH (09:41)
[2021-05-16] MEDS: PANTOPRAZOLE 40 MG TABLET. PO SCH (09:41)
[2021-05-16] MEDS: TAMSULOSIN 0.4 MG CAP.ER.24H. PO SCH (09:41)
[2021-05-16] MEDS: GABAPENTIN 300 MG CAPSULE. PO SCH ×3 (09:41→21:18)
[2021-05-16] MEDS: FOLIC ACID 1 MG TABLET PO SCH (09:42)
[2021-05-16] MEDS: LISINOPRIL 5 MG TABLET. PO SCH (09:42)
[2021-05-16] MEDS: CARVEDILOL 12.5 MG TABLET PO SCH ×2 (09:42→17:07)
[2021-05-16] MEDS: DEXAMETHASONE 0.1% OPHTH SOLUTION 5ML BOTTLE. OS SCH ×4 (09:42→21:00)
[2021-05-16] MEDS: traMADol 50 MG TABLET PO PRN (14:37)
--- NOTE | 2021-05-16 15:32 | NUR ---
Nursing note: Client in dining room at time of AM med pass and assessment, takes meds whole. He is pleasant, med compliant and cooperative. He continues to have a depressed affect, though he denied having any depression this AM. Client c/o pain in bilateral shoulders and lower back at lunch time, he refused lunch. PRN given per order, he voiced relief. He is currently in his bed room. Will continue to monitor.
[2021-05-16 15:53] VITALS: BP 124/70
[2021-05-16] MEDS: traZODone 50 MG TABLET. PO SCH (21:18)
[2021-05-16] MEDS: ATORVASTATIN CALCIUM 20 MG TABLET PO SCH (21:19)
[2021-05-16] MEDS: CYPROHEPTADINE 4 MG TABLET. PO SCH (21:19)
[2021-05-16] MEDS: MIRTAZAPINE 30 MG TABLET PO SCH (21:19)
--- NOTE | 2021-05-16 21:53 | PDOC ---
Exam Note: Henry Note: Please also refer to the separate dictated note~for this date of service dictated separately.~Patient seen individually. Discussed the patient with Nursing staff reviewed the chart.~Reviewed interim history and current functioning. Reviewed vital signs,~Labs/ Radiology~and current medications noted below. Continue current treatment with the changes noted in the dictated addendum note Assessment: Vital Signs/I&O: Vital Signs Date Time Temp Pulse Resp B/P (MAP) Pulse Ox O2 Delivery O2 Flow Rate FiO2 05/16/21 17:07 61 124/70 05/16/21 15:53 97.4 18 92 05/14/21 05:58 2.5 05/13/21 05:46 Nasal Cannula I & O 05/15/21 05/15/21 05/16/21 15:00 23:00 07:00 Intake Total 720 ml 240 ml 240 ml Balance 720 ml 240 ml 240 ml Labs: Laboratory Tests Test 05/16/21 07:32 05/16/21 11:23 05/16/21 16:26 05/16/21 19:49 Glucose (Fingerstick) 154 mg/dL (70-99) H 144 mg/dL (70-99) H 171 mg/dL (70-99) H 176 mg/dL (70-99) H Current Medications: Meds: Laboratory Tests Test 05/16/21 07:32 05/16/21 11:23 05/16/21 16:26 05/16/21 19:49 Glucose (Fingerstick) 154 mg/dL 144 mg/dL 171 mg/dL 176 mg/dL Current Medications Medications (Trade) Dose Ordered Sig/Shahid Route PRN Reason Start Time Stop Time Status Last Admin Dose Admin Acetaminophen (Tylenol) 650 mg PRN Q6HRS PRN PO MILD PAIN / TEMP > 100.3'F 05/11/21 23:00 05/12/21 00:35 DC Multi-Ingredient Ointment (Analgesic [place]) 1 rocael PRN QID PRN TP MUSCLE PAIN 05/11/21 23:00 05/16/21 11:06 Al Hydroxide/Mg Hydroxide (Mylanta Plus Xs) 15 ml PRN AFTMEALHC PRN PO DYSPEPSIA 05/11/21 23:00 05/14/21 15:26 Magnesium Hydroxide (Milk Of Magnesia) 2,400 mg PRN QHS PRN PO CONSTIPATION-2ND CHOICE 05/11/21 23:00 Acetaminophen (Tylenol) 1,000 mg PRN Q6HRS PRN PO MILD PAIN 1-3 05/12/21 00:30 05/15/21 17:34 Amlodipine Besylate (Norvasc) 5 mg DAILY PO 05/12/21 09:00 05/16/21 09:41 Aspirin (Aspirin Enteric Coated) 81 mg DAILY PO 05/12/21 09:00 05/16/21 09:00 Atorvastatin Calcium (Lipitor) 20 mg QHS PO 05/12/21 21:00 05/16/21 21:19 Atropine Sulfate (Isopto Atropine) 1 drop DAILY OS 05/12/21 09:00 05/16/21 09:00 Docusate Sodium (Colace) 100 mg PRN BID PRN PO CONSTIPATION-1ST CHOICE 05/12/21 00:30 Furosemide (Lasix) 20 mg DAILY PO 05/12/21 09:00 05/16/21 09:40 Gabapentin (Neurontin) 300 mg TID PO 05/12/21 09:00 05/16/21 21:18 Lisinopril (Prinivil) 5 mg DAILY PO 05/12/21 09:00 05/16/21 09:42 Methocarbamol (Robaxin) 500 mg PRN QHS PRN PO MUSCLE SPASMS 05/12/21 00:30 05/12/21 20:11 Nitroglycerin (Nitrostat) 0.4 mg PRN Q5MIN PRN SL CHEST PAIN 05/12/21 00:30 Sodium Chloride (Gibran-5) 1 drop PRN QID PRN OU dry eye CHOICE #2 05/12/21 00:30 Tamsulosin HCl (Flomax) 0.4 mg DAILY PO 05/12/21 09:00 05/16/21 09:41 Timolol Maleate (Timoptic 0.25% Ophth) 1 drop BID OD 05/12/21 09:00 05/16/21 21:00 Artificial Tears (Artificial Tears) 1 drop PRN BID PRN OU DRY EYE CHOICE #1 05/12/21 01:00 Carvedilol (Coreg) 12.5 mg BIDWMEALS PO 05/12/21 08:00 05/16/21 17:07 Cyanocobalamin (Vitamin B-12) 1,000 mcg DAILY PO 05/12/21 09:00 05/16/21 09:41 Levetiracetam (Keppra) 1,500 mg BID PO 05/12/21 09:00 05/16/21 21:19 Pantoprazole Sodium (Protonix) 40 mg DAILYAC PO 05/12/21 07:30 05/16/21 09:41 Dexamethasone (Maxidex) 1 drop QID OS 05/12/21 09:00 05/16/21 21:00 Non-Formulary Medication (Riboflavin (Vitamin B-2)) 100 mg DAILY PO 05/12/21 09:00 05/14/21 07:09 DC Folic Acid (Folic Acid) 1 mg DAILY PO 05/12/21 09:00 05/16/21 09:42 Methylphenidate HCl (Methylphenidate HCl) 5 mg PRN DAILY PRN PO . 05/12/21 00:30 05/12/21 10:56 DC Mirtazapine (Remeron) 60 mg QHS PO 05/12/21 21:00 05/12/21 10:56 DC Trazodone HCl (Desyrel) 150 mg QHS PO 05/12/21 21:00 05/16/21 21:18 Venlafaxine HCl (Effexor Xr) 75 mg DAILY PO 05/12/21 09:00 05/12/21 19:29 DC 05/12/21 08:44 Melatonin (Melatonin) 3 mg PRN QHS PRN PO INSOMNIA 05/12/21 00:45 Potassium Chloride (Klor-Con) 20 meq DAILY PO 05/12/21 09:00 05/16/21 09:41 Mirtazapine (Remeron) 30 mg QHS PO 05/12/21 21:00 05/16/21 21:19 Dextrose (Dextrose 50%-Water Syringe) 12.5 gm PRN Q15MIN PRN IV SEE COMMENTS 05/12/21 13:00 Hydrocortisone (Cortaid) 1 rocael BID TP 05/12/21 21:00 05/16/21 21:19 Duloxetine HCl (Cymbalta) 30 mg DAILY PO 05/13/21 09:00 05/14/21 10:00 DC 05/14/21 08:58 Duloxetine HCl (Cymbalta) 60 mg DAILY PO 05/15/21 09:00 05/16/21 09:40 Cyproheptadine HCl (Periactin) 2 mg HS PO 05/13/21 21:00 05/16/21 21:19 Aripiprazole (Abilify) 5 mg DAILY PO 05/14/21 09:00 05/16/21 09:40 Tramadol HCl (Ultram) 100 mg PRN Q8HRS PRN PO PAIN 05/16/21 12:45 05/16/21 14:37 Current Medications Medications (Trade) Dose Ordered Sig/Shahid Route PRN Reason Start Time Stop Time Status Last Admin Dose Admin Tramadol HCl (Ultram) 100 mg PRN Q8HRS PRN PO PAIN 05/16/21 12:45 05/16/21 14:37 I have reviewed the current psychotropics carefully including drug interactions. Risk benefit ratio favors no change other than as noted in my dictated progress note. Diagnosis: Problems: (1) Major depressive disorder (2) Post traumatic stress disorder (3) Anxiety disorder, unspecified (4) Dementia, vascular, with depression (5) Dementia, vascular, with delusions (6) Major neurocognitive disorder MICKY WHEELER MD May 16, 2021 21:53
--- NOTE | 2021-05-17 02:56 | NUR ---
Patient was very calm, collected but interactive today with no signs of depression or withdrawal. He spent about an hour in the TV room and was taken for his shower, after which he returned to his room. He was compliant with all his bedtime medications, conversing coherently and pleasantly with nurse during med pass. Patient is alert and oriented x2 to 3, is able to make needs known and did not show any signs of nausea and vomiting. He went to bed immediately after his meds where he remained with eyes closed, breathing normally, with no signs of distress.
[2021-05-17 05:50] VITALS: BP 127/68
--- NOTE | 2021-05-17 06:54 | PDOC ---
Exam Note: Henry Note: This note is a late entry for 05/16/2021 covers elements not covered in my initial note. Subjective: The patient was seen individually in the evening of 05/16/2021 with Anita BERMUDEZ, discussed and reviewed the chart. He slept 8 hours previous night. The patient had a bowel movement. He states his pain is 50% better since starting Cymbalta. He has been isolative in his room, did come off for breakfast and states his mind is much clearer. Appetite is 90%. Review of Systems: No CV, , pulmonary, eye system symptoms on review. Mental Status Exam: The patient is oriented to himself and situation. Speech has some latency, coherent. Abstraction fair. Computation impaired. Language function intact. Attention span short. Mood and affect improved. Laboratory Data: Reviewed. 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 Anxiety diso rder unspecified. Plan: Continue current psychotropics. We may need to increase Cymbalta in due course and Abilify if needed. Assessment: Vital Signs/I&O: Vital Signs Date Time Temp Pulse Resp B/P (MAP) Pulse Ox O2 Delivery O2 Flow Rate FiO2 05/17/21 05:50 98.1 60 20 127/68 (87) 91 05/14/21 05:58 2.5 05/13/21 05:46 Nasal Cannula I & O 05/16/21 05/16/21 05/17/21 15:00 23:00 07:00 Intake Total 360 ml 360 ml 240 ml Balance 360 ml 360 ml 240 ml Labs: Laboratory Tests Test 05/16/21 07:32 05/16/21 11:23 05/16/21 16:26 05/16/21 19:49 Glucose (Fingerstick) 154 mg/dL (70-99) H 144 mg/dL (70-99) H 171 mg/dL (70-99) H 176 mg/dL (70-99) H Current Medications: Meds: Laboratory Tests Test 05/16/21 07:32 05/16/21 11:23 05/16/21 16:26 05/16/21 19:49 Glucose (Fingerstick) 154 mg/dL 144 mg/dL 171 mg/dL 176 mg/dL Current Medications Medications (Trade) Dose Ordered Sig/Shahid Route PRN Reason Start Time Stop Time Status Last Admin Dose Admin Acetaminophen (Tylenol) 650 mg PRN Q6HRS PRN PO MILD PAIN / TEMP > 100.3'F 05/11/21 23:00 05/12/21 00:35 DC Multi-Ingredient Ointment (Analgesic [place]) 1 rocael PRN QID PRN TP MUSCLE PAIN 05/11/21 23:00 05/16/21 11:06 Al Hydroxide/Mg Hydroxide (Mylanta Plus Xs) 15 ml PRN AFTMEALHC PRN PO DYSPEPSIA 05/11/21 23:00 05/14/21 15:26 Magnesium Hydroxide (Milk Of Magnesia) 2,400 mg PRN QHS PRN PO CONSTIPATION-2ND CHOICE 05/11/21 23:00 Acetaminophen (Tylenol) 1,000 mg PRN Q6HRS PRN PO MILD PAIN 1-3 05/12/21 00:30 05/15/21 17:34 Amlodipine Besylate (Norvasc) 5 mg DAILY PO 05/12/21 09:00 05/16/21 09:41 Aspirin (Aspirin Enteric Coated) 81 mg DAILY PO 05/12/21 09:00 05/16/21 09:00 Atorvastatin Calcium (Lipitor) 20 mg QHS PO 05/12/21 21:00 05/16/21 21:19 Atropine Sulfate (Isopto Atropine) 1 drop DAILY OS 05/12/21 09:00 05/16/21 09:00 Docusate Sodium (Colace) 100 mg PRN BID PRN PO CONSTIPATION-1ST CHOICE 05/12/21 00:30 Furosemide (Lasix) 20 mg DAILY PO 05/12/21 09:00 05/16/21 09:40 Gabapentin (Neurontin) 300 mg TID PO 05/12/21 09:00 05/16/21 21:18 Lisinopril (Prinivil) 5 mg DAILY PO 05/12/21 09:00 05/16/21 09:42 Methocarbamol (Robaxin) 500 mg PRN QHS PRN PO MUSCLE SPASMS 05/12/21 00:30 05/12/21 20:11 Nitroglycerin (Nitrostat) 0.4 mg PRN Q5MIN PRN SL CHEST PAIN 05/12/21 00:30 Sodium Chloride (Gibran-5) 1 drop PRN QID PRN OU dry eye CHOICE #2 05/12/21 00:30 Tamsulosin HCl (Flomax) 0.4 mg DAILY PO 05/12/21 09:00 05/16/21 09:41 Timolol Maleate (Timoptic 0.25% Ophth) 1 drop BID OD 05/12/21 09:00 05/16/21 21:00 Artificial Tears (Artificial Tears) 1 drop PRN BID PRN OU DRY EYE CHOICE #1 05/12/21 01:00 Carvedilol (Coreg) 12.5 mg BIDWMEALS PO 05/12/21 08:00 05/16/21 17:07 Cyanocobalamin (Vitamin B-12) 1,000 mcg DAILY PO 05/12/21 09:00 05/16/21 09:41 Levetiracetam (Keppra) 1,500 mg BID PO 05/12/21 09:00 05/16/21 21:19 Pantoprazole Sodium (Protonix) 40 mg DAILYAC PO 05/12/21 07:30 05/16/21 09:41 Dexamethasone (Maxidex) 1 drop QID OS 05/12/21 09:00 05/16/21 21:00 Non-Formulary Medication (Riboflavin (Vitamin B-2)) 100 mg DAILY PO 05/12/21 09:00 05/14/21 07:09 DC Folic Acid (Folic Acid) 1 mg DAILY PO 05/12/21 09:00 05/16/21 09:42 Methylphenidate HCl (Methylphenidate HCl) 5 mg PRN DAILY PRN PO . 05/12/21 00:30 05/12/21 10:56 DC Mirtazapine (Remeron) 60 mg QHS PO 05/12/21 21:00 05/12/21 10:56 DC Trazodone HCl (Desyrel) 150 mg QHS PO 05/12/21 21:00 05/16/21 21:18 Venlafaxine HCl (Effexor Xr) 75 mg DAILY PO 05/12/21 09:00 05/12/21 19:29 DC 05/12/21 08:44 Melatonin (Melatonin) 3 mg PRN QHS PRN PO INSOMNIA 05/12/21 00:45 Potassium Chloride (Klor-Con) 20 meq DAILY PO 05/12/21 09:00 05/16/21 09:41 Mirtazapine (Remeron) 30 mg QHS PO 05/12/21 21:00 05/16/21 21:19 Dextrose (Dextrose 50%-Water Syringe) 12.5 gm PRN Q15MIN PRN IV SEE COMMENTS 05/12/21 13:00 Hydrocortisone (Cortaid) 1 rocael BID TP 05/12/21 21:00 05/16/21 21:19 Duloxetine HCl (Cymbalta) 30 mg DAILY PO 05/13/21 09:00 05/14/21 10:00 DC 05/14/21 08:58 Duloxetine HCl (Cymbalta) 60 mg DAILY PO 05/15/21 09:00 05/16/21 09:40 Cyproheptadine HCl (Periactin) 2 mg HS PO 05/13/21 21:00 05/16/21 21:19 Aripiprazole (Abilify) 5 mg DAILY PO 05/14/21 09:00 05/16/21 09:40 Tramadol HCl (Ultram) 100 mg PRN Q8HRS PRN PO PAIN 05/16/21 12:45 05/16/21 14:37 Current Medications Medications (Trade) Dose Ordered Sig/Shahid Route PRN Reason Start Time Stop Time Status Last Admin Dose Admin Tramadol HCl (Ultram) 100 mg PRN Q8HRS PRN PO PAIN 05/16/21 12:45 05/16/21 14:37 I have reviewed the current psychotropics carefully including drug interactions. Risk benefit ratio favors no change other than as noted in my dictated progress note. Diagnosis: Problems: (1) Major depressive disorder (2) Post traumatic stress disorder (3) Anxiety disorder, unspecified (4) Dementia, vascular, with depression (5) Dementia, vascular, with delusions (6) Major neurocognitive disorder MICKY WHEELER MD May 17, 2021 06:54
[2021-05-17] MEDS: PANTOPRAZOLE 40 MG TABLET. PO SCH (08:25)
[2021-05-17] MEDS: ARIPiprazole 5 MG TABLET PO SCH (08:25)
[2021-05-17] MEDS: LISINOPRIL 5 MG TABLET. PO SCH (08:26)
[2021-05-17] MEDS: ASPIRIN ENTERIC COATED 81 MG TABLET.DR. PO SCH (08:27)
[2021-05-17] MEDS: FOLIC ACID 1 MG TABLET PO SCH (08:27)
[2021-05-17] MEDS: DULoxetine HCL 60 MG CAPSULE.DR PO SCH (08:27)
[2021-05-17] MEDS: amLODIPine BESYLATE 5 MG TABLET PO SCH (08:27)
[2021-05-17] MEDS: GABAPENTIN 300 MG CAPSULE. PO SCH ×3 (08:28→20:31)
[2021-05-17] MEDS: CARVEDILOL 12.5 MG TABLET PO SCH ×2 (08:28→17:18)
[2021-05-17] MEDS: levETIRAcetam 500 MG TABLET PO SCH ×2 (08:29→20:31)
[2021-05-17] MEDS: TAMSULOSIN 0.4 MG CAP.ER.24H. PO SCH (08:30)
[2021-05-17] MEDS: FUROSEMIDE 20 MG TABLET PO SCH (08:30)
[2021-05-17] MEDS: POTASSIUM CHLORIDE 20 MEQ TABLET.ER. PO SCH (08:31)
[2021-05-17] MEDS: CYANOCOBALAMIN (VITAMIN B-12) 1,000 MCG TABLET. PO SCH (08:31)
[2021-05-17] MEDS: traMADol 50 MG TABLET PO PRN ×2 (08:32→20:36)
[2021-05-17] MEDS: ATROPINE 1% OPHTH SOLUTION 5ML BOTTLE. OS SCH (08:34)
[2021-05-17] MEDS: DEXAMETHASONE 0.1% OPHTH SOLUTION 5ML BOTTLE. OS SCH ×4 (08:35→20:30)
[2021-05-17] MEDS: TIMOLOL 0.25% OPHTH SOLUTION 5ML BOTTLE. OD SCH ×2 (08:35→20:31)
[2021-05-17] MEDS: HYDROCORTISONE 1% TOPICAL OINTMENT 30GM TUBE. TP SCH ×2 (09:00→20:31)
[2021-05-17 16:00] VITALS: BP 132/79
--- NOTE | 2021-05-17 18:30 | NUR ---
Patient has been calm, compliant, and withdrawn to his room throughout this shift. He has been pleasant and interactive with staff; denies SI. Will continue to monitor and report to oncoming shift.
[2021-05-17] MEDS: traZODone 50 MG TABLET. PO SCH (20:31)
[2021-05-17] MEDS: CYPROHEPTADINE 4 MG TABLET. PO SCH (20:31)
[2021-05-17] MEDS: MIRTAZAPINE 30 MG TABLET PO SCH (20:31)
[2021-05-17] MEDS: ATORVASTATIN CALCIUM 20 MG TABLET PO SCH (20:31)
--- NOTE | 2021-05-17 22:01 | PDOC ---
Exam Note: Henry Note: Please also refer to the separate dictated note~for this date of service dictated separately.~Patient seen individually. Discussed the patient with Nursing staff reviewed the chart.~Reviewed interim history and current functioning. Reviewed vital signs,~Labs/ Radiology~and current medications noted below. Continue current treatment with the changes noted in the dictated addendum note Assessment: Vital Signs/I&O: Vital Signs Date Time Temp Pulse Resp B/P (MAP) Pulse Ox O2 Delivery O2 Flow Rate FiO2 05/17/21 21:43 98 05/17/21 17:18 61 132/79 05/17/21 16:00 97.5 16 Room Air 05/17/21 08:32 99.0 I & O 05/16/21 05/16/21 05/17/21 15:00 23:00 07:00 Intake Total 360 ml 360 ml 240 ml Balance 360 ml 360 ml 240 ml Labs: Laboratory Tests Test 05/17/21 07:45 05/17/21 12:00 05/17/21 17:10 05/17/21 19:16 Glucose (Fingerstick) 150 mg/dL (70-99) H 178 mg/dL (70-99) H 154 mg/dL (70-99) H 167 mg/dL (70-99) H Current Medications: Meds: Laboratory Tests Test 05/17/21 07:45 05/17/21 12:00 05/17/21 17:10 05/17/21 19:16 Glucose (Fingerstick) 150 mg/dL 178 mg/dL 154 mg/dL 167 mg/dL Current Medications Medications (Trade) Dose Ordered Sig/Shahid Route PRN Reason Start Time Stop Time Status Last Admin Dose Admin Acetaminophen (Tylenol) 650 mg PRN Q6HRS PRN PO MILD PAIN / TEMP > 100.3'F 05/11/21 23:00 05/12/21 00:35 DC Multi-Ingredient Ointment (Analgesic [place]) 1 rocael PRN QID PRN TP MUSCLE PAIN 05/11/21 23:00 05/16/21 11:06 Al Hydroxide/Mg Hydroxide (Mylanta Plus Xs) 15 ml PRN AFTMEALHC PRN PO DYSPEPSIA 05/11/21 23:00 05/14/21 15:26 Magnesium Hydroxide (Milk Of Magnesia) 2,400 mg PRN QHS PRN PO CONSTIPATION-2ND CHOICE 05/11/21 23:00 Acetaminophen (Tylenol) 1,000 mg PRN Q6HRS PRN PO MILD PAIN 1-3 05/12/21 00:30 05/15/21 17:34 Amlodipine Besylate (Norvasc) 5 mg DAILY PO 05/12/21 09:00 05/17/21 08:27 Aspirin (Aspirin Enteric Coated) 81 mg DAILY PO 05/12/21 09:00 05/17/21 08:27 Atorvastatin Calcium (Lipitor) 20 mg QHS PO 05/12/21 21:00 05/17/21 20:31 Atropine Sulfate (Isopto Atropine) 1 drop DAILY OS 05/12/21 09:00 05/17/21 08:34 Docusate Sodium (Colace) 100 mg PRN BID PRN PO CONSTIPATION-1ST CHOICE 05/12/21 00:30 Furosemide (Lasix) 20 mg DAILY PO 05/12/21 09:00 05/17/21 08:30 Gabapentin (Neurontin) 300 mg TID PO 05/12/21 09:00 05/17/21 20:31 Lisinopril (Prinivil) 5 mg DAILY PO 05/12/21 09:00 05/17/21 08:26 Methocarbamol (Robaxin) 500 mg PRN QHS PRN PO MUSCLE SPASMS 05/12/21 00:30 05/12/21 20:11 Nitroglycerin (Nitrostat) 0.4 mg PRN Q5MIN PRN SL CHEST PAIN 05/12/21 00:30 Sodium Chloride (Gibran-5) 1 drop PRN QID PRN OU dry eye CHOICE #2 05/12/21 00:30 Tamsulosin HCl (Flomax) 0.4 mg DAILY PO 05/12/21 09:00 05/17/21 08:30 Timolol Maleate (Timoptic 0.25% Ophth) 1 drop BID OD 05/12/21 09:00 05/17/21 08:35 Artificial Tears (Artificial Tears) 1 drop PRN BID PRN OU DRY EYE CHOICE #1 05/12/21 01:00 Carvedilol (Coreg) 12.5 mg BIDWMEALS PO 05/12/21 08:00 05/17/21 17:18 Cyanocobalamin (Vitamin B-12) 1,000 mcg DAILY PO 05/12/21 09:00 05/17/21 08:31 Levetiracetam (Keppra) 1,500 mg BID PO 05/12/21 09:00 05/17/21 20:31 Pantoprazole Sodium (Protonix) 40 mg DAILYAC PO 05/12/21 07:30 05/17/21 08:25 Dexamethasone (Maxidex) 1 drop QID OS 05/12/21 09:00 05/17/21 20:30 Non-Formulary Medication (Riboflavin (Vitamin B-2)) 100 mg DAILY PO 05/12/21 09:00 05/14/21 07:09 DC Folic Acid (Folic Acid) 1 mg DAILY PO 05/12/21 09:00 05/17/21 08:27 Methylphenidate HCl (Methylphenidate HCl) 5 mg PRN DAILY PRN PO . 05/12/21 00:30 05/12/21 10:56 DC Mirtazapine (Remeron) 60 mg QHS PO 05/12/21 21:00 05/12/21 10:56 DC Trazodone HCl (Desyrel) 150 mg QHS PO 05/12/21 21:00 05/17/21 20:31 Venlafaxine HCl (Effexor Xr) 75 mg DAILY PO 05/12/21 09:00 05/12/21 19:29 DC 05/12/21 08:44 Melatonin (Melatonin) 3 mg PRN QHS PRN PO INSOMNIA 05/12/21 00:45 Potassium Chloride (Klor-Con) 20 meq DAILY PO 05/12/21 09:00 05/17/21 08:31 Mirtazapine (Remeron) 30 mg QHS PO 05/12/21 21:00 05/17/21 20:31 Dextrose (Dextrose 50%-Water Syringe) 12.5 gm PRN Q15MIN PRN IV SEE COMMENTS 05/12/21 13:00 Hydrocortisone (Cortaid) 1 rocael BID TP 05/12/21 21:00 05/17/21 20:31 Duloxetine HCl (Cymbalta) 30 mg DAILY PO 05/13/21 09:00 05/14/21 10:00 DC 05/14/21 08:58 Duloxetine HCl (Cymbalta) 60 mg DAILY PO 05/15/21 09:00 05/17/21 08:27 Cyproheptadine HCl (Periactin) 2 mg HS PO 05/13/21 21:00 05/17/21 20:31 Aripiprazole (Abilify) 5 mg DAILY PO 05/14/21 09:00 05/17/21 08:25 Tramadol HCl (Ultram) 100 mg PRN Q8HRS PRN PO PAIN 05/16/21 12:45 05/17/21 20:36 I have reviewed the current psychotropics carefully including drug interactions. Risk benefit ratio favors no change other than as noted in my dictated progress note. Diagnosis: Problems: (1) Major depressive disorder (2) Post traumatic stress disorder (3) Anxiety disorder, unspecified (4) Dementia, vascular, with depression (5) Dementia, vascular, with delusions (6) Major neurocognitive disorder MICKY WHEELER MD May 17, 2021 22:01
--- NOTE | 2021-05-17 23:07 | NUR ---
Pt withdrawn to his room all evening. Pt calm with flat affect. Denies SI. Compliant with whole medications. PRN Tramadol administered per pt request.
[2021-05-18 05:42] VITALS: BP 118/70
[2021-05-18 06:21] LABS: BASO % 1 % (0-3); EOS # 0.2 x10^3/uL (0.0-0.7); EOS % 3 % (0-3); HEMATOCRIT 38.6 % (39.0-53.0); HEMOGLOBIN 12.9 g/dL (13.0-17.5); LYMPH # 1.1 x10^3/uL (1.0-4.8); LYMPH % 19 % (24-48); MEAN CORPUSCULAR HEMOGLOBIN 31 pg (25-35); MEAN CORPUSCULAR HGB CONC 33 g/dL (31-37); MEAN CORPUSCULAR VOLUME 93 fL (79-100); MONO # 0.5 x10^3/uL (0.0-1.1); MONO % 8 % (0-9); NEUT # 3.8 x10^3uL (1.8-7.7); NEUT % 68 % (31-73); PLATELET COUNT 93 x10^3/uL (140-400); RED BLOOD COUNT 4.16 x10^6/uL (4.30-5.70); RED CELL DISTRIBUTION WIDTH 14.7 % (11.5-14.5); WHITE BLOOD COUNT 5.5 x10^3/uL (4.0-11.0)
[2021-05-18 06:42] LABS: ALBUMIN 2.8 g/dL (3.4-5.0); ALBUMIN/GLOBULIN RATIO 0.8 (1.0-1.7); CALCIUM 8.1 mg/dL (8.5-10.1); CREATININE 1.2 mg/dL (0.7-1.3); GFR 58.3; POTASSIUM 4.2 mmol/L (3.5-5.1); TOTAL BILIRUBIN 0.3 mg/dL (0.2-1.0); TOTAL PROTEIN 6.4 g/dL (6.4-8.2)
[2021-05-18] MEDS: ATROPINE 1% OPHTH SOLUTION 5ML BOTTLE. OS SCH (08:35)
[2021-05-18] MEDS: TIMOLOL 0.25% OPHTH SOLUTION 5ML BOTTLE. OD SCH ×2 (08:35→20:38)
[2021-05-18] MEDS: HYDROCORTISONE 1% TOPICAL OINTMENT 30GM TUBE. TP SCH ×2 (08:36→20:42)
[2021-05-18] MEDS: DEXAMETHASONE 0.1% OPHTH SOLUTION 5ML BOTTLE. OS SCH ×4 (08:36→20:37)
[2021-05-18] MEDS: CARVEDILOL 12.5 MG TABLET PO SCH ×2 (08:40→17:28)
[2021-05-18] MEDS: LISINOPRIL 5 MG TABLET. PO SCH (08:40)
[2021-05-18] MEDS: levETIRAcetam 500 MG TABLET PO SCH ×2 (08:40→20:39)
[2021-05-18] MEDS: FOLIC ACID 1 MG TABLET PO SCH (08:41)
[2021-05-18] MEDS: DULoxetine HCL 60 MG CAPSULE.DR PO SCH (08:41)
[2021-05-18] MEDS: POTASSIUM CHLORIDE 20 MEQ TABLET.ER. PO SCH (08:41)
[2021-05-18] MEDS: PANTOPRAZOLE 40 MG TABLET. PO SCH (08:41)
[2021-05-18] MEDS: CYANOCOBALAMIN (VITAMIN B-12) 1,000 MCG TABLET. PO SCH (08:41)
[2021-05-18] MEDS: ASPIRIN ENTERIC COATED 81 MG TABLET.DR. PO SCH (08:41)
[2021-05-18] MEDS: ARIPiprazole 5 MG TABLET PO SCH (08:41)
[2021-05-18] MEDS: TAMSULOSIN 0.4 MG CAP.ER.24H. PO SCH (08:41)
[2021-05-18] MEDS: GABAPENTIN 300 MG CAPSULE. PO SCH ×3 (08:41→20:39)
[2021-05-18] MEDS: FUROSEMIDE 20 MG TABLET PO SCH (08:41)
[2021-05-18] MEDS: amLODIPine BESYLATE 5 MG TABLET PO SCH (08:42)
[2021-05-18] MEDS: traMADol 50 MG TABLET PO PRN ×2 (08:42→20:41)
[2021-05-18 11:22] LABS: BILIRUBIN,URINE NEG (NEG); CLARITY,URINE CLEAR; COLOR,URINE YELLOW; GLUCOSE,URINE NEG (NEG); NITRITE,URINE NEG (NEG); UROBILINOGEN,URINE 0.2 mg/dL (0.2 mg/dL)
[2021-05-18 11:23] LABS: RBC,URINE 0 /HPF (0-2)
[2021-05-18 11:24] LABS: BACTERIA,URINE FEW /HPF (0-FEW)
--- NOTE | 2021-05-18 18:05 | NUR ---
Patient has been calm, compliant, mildly confused, and withdrawn to his room throughout this shift. He has been pleasant and interactive with staff; denies SI. Will continue to monitor and report to oncoming shift.
[2021-05-18] MEDS: CYPROHEPTADINE 4 MG TABLET. PO SCH (20:40)
[2021-05-18] MEDS: MIRTAZAPINE 30 MG TABLET PO SCH (20:40)
[2021-05-18] MEDS: traZODone 50 MG TABLET. PO SCH (20:40)
[2021-05-18] MEDS: ATORVASTATIN CALCIUM 20 MG TABLET PO SCH (20:40)
--- NOTE | 2021-05-18 21:58 | PDOC ---
Exam Note: Henry Note: Please also refer to the separate dictated note~for this date of service dictated separately.~Patient seen individually. Discussed the patient with Nursing staff reviewed the chart.~Reviewed interim history and current functioning. Reviewed vital signs,~Labs/ Radiology~and current medications noted below. Continue current treatment with the changes noted in the dictated addendum note Assessment: Vital Signs/I&O: Vital Signs Date Time Temp Pulse Resp B/P (MAP) Pulse Ox O2 Delivery O2 Flow Rate FiO2 05/18/21 21:16 91 05/18/21 17:28 63 118/70 05/18/21 09:30 14 Room Air 05/18/21 05:42 97.2 05/17/21 08:32 99.0 I & O 05/17/21 05/17/21 05/18/21 15:00 23:00 07:00 Intake Total 720 ml 480 ml Balance 720 ml 480 ml Labs: Laboratory Tests Test 05/18/21 06:05 05/18/21 07:56 05/18/21 10:55 05/18/21 12:05 White Blood Count 5.5 x10^3/uL (4.0-11.0) Red Blood Count 4.16 x10^6/uL (4.30-5.70) L Hemoglobin 12.9 g/dL (13.0-17.5) L Hematocrit 38.6 % (39.0-53.0) L Mean Corpuscular Volume 93 fL (79-100) Mean Corpuscular Hemoglobin 31 pg (25-35) Mean Corpuscular Hemoglobin Concent 33 g/dL (31-37) Red Cell Distribution Width 14.7 % (11.5-14.5) H Platelet Count 93 x10^3/uL (140-400) L Neutrophils (%) (Auto) 68 % (31-73) Lymphocytes (%) (Auto) 19 % (24-48) L Monocytes (%) (Auto) 8 % (0-9) Eosinophils (%) (Auto) 3 % (0-3) Basophils (%) (Auto) 1 % (0-3) Neutrophils # (Auto) 3.8 x10^3uL (1.8-7.7) Lymphocytes # (Auto) 1.1 x10^3/uL (1.0-4.8) Monocytes # (Auto) 0.5 x10^3/uL (0.0-1.1) Eosinophils # (Auto) 0.2 x10^3/uL (0.0-0.7) Basophils # (Auto) 0.0 x10^3/uL (0.0-0.2) Sodium Level 144 mmol/L (136-145) Potassium Level 4.2 mmol/L (3.5-5.1) Chloride Level 107 mmol/L (98-107) Carbon Dioxide Level 30 mmol/L (21-32) Anion Gap 7 (6-14) Blood Urea Nitrogen 19 mg/dL (8-26) Creatinine 1.2 mg/dL (0.7-1.3) Estimated GFR (Cockcroft-Gault) 58.3 BUN/Creatinine Ratio 16 (6-20) Glucose Level 141 mg/dL (70-99) H Calcium Level 8.1 mg/dL (8.5-10.1) L Total Bilirubin 0.3 mg/dL (0.2-1.0) Aspartate Amino Transferase (AST) 12 U/L (15-37) L Alanine Aminotransferase (ALT) 16 U/L (16-63) Alkaline Phosphatase 89 U/L (46-116) Total Protein 6.4 g/dL (6.4-8.2) Albumin 2.8 g/dL (3.4-5.0) L Albumin/Globulin Ratio 0.8 (1.0-1.7) L Glucose (Fingerstick) 141 mg/dL (70-99) H 150 mg/dL (70-99) H Urine Collection Type Unknown Urine Color Yellow Urine Clarity Clear Urine pH 5.5 Urine Specific [place] 1.025 Urine Protein Neg (NEG-TRACE) Urine Glucose (UA) Neg mg/dL (NEG) Urine Ketones (Stick) Neg mg/dL (NEG) Urine Blood Neg (NEG) Urine Nitrite Neg (NEG) Urine Bilirubin Neg (NEG) Urine Urobilinogen Dipstick 0.2 mg/dL (0.2 mg/dL) Urine Leukocyte Esterase Neg (NEG) Urine RBC 0 /HPF (0-2) Urine WBC 5-10 /HPF (0-4) Urine Bacteria Few /HPF (0-FEW) Test 05/18/21 17:18 05/18/21 19:13 Glucose (Fingerstick) 200 mg/dL (70-99) H 191 mg/dL (70-99) H Current Medications: Meds: Laboratory Tests Test 05/18/21 06:05 05/18/21 07:56 05/18/21 10:55 05/18/21 12:05 White Blood Count 5.5 x10^3/uL Red Blood Count 4.16 x10^6/uL Hemoglobin 12.9 g/dL Hematocrit 38.6 % Mean Corpuscular Volume 93 fL Mean Corpuscular Hemoglobin 31 pg Mean Corpuscular Hemoglobin Concent 33 g/dL Red Cell Distribution Width 14.7 % Platelet Count 93 x10^3/uL Neutrophils (%) (Auto) 68 % Lymphocytes (%) (Auto) 19 % Monocytes (%) (Auto) 8 % Eosinophils (%) (Auto) 3 % Basophils (%) (Auto) 1 % Neutrophils # (Auto) 3.8 x10^3uL Lymphocytes # (Auto) 1.1 x10^3/uL Monocytes # (Auto) 0.5 x10^3/uL Eosinophils # (Auto) 0.2 x10^3/uL Basophils # (Auto) 0.0 x10^3/uL Sodium Level 144 mmol/L Potassium Level 4.2 mmol/L Chloride Level 107 mmol/L Carbon Dioxide Level 30 mmol/L Anion Gap 7 Blood Urea Nitrogen 19 mg/dL Creatinine 1.2 mg/dL Estimated GFR (Cockcroft-Gault) 58.3 BUN/Creatinine Ratio 16 Glucose Level 141 mg/dL Calcium Level 8.1 mg/dL Total Bilirubin 0.3 mg/dL Aspartate Amino Transf (AST/SGOT) 12 U/L Alanine Aminotransferase (ALT/SGPT) 16 U/L Alkaline Phosphatase 89 U/L Total Protein 6.4 g/dL Albumin 2.8 g/dL Albumin/Globulin Ratio 0.8 Glucose (Fingerstick) 141 mg/dL 150 mg/dL Urine Collection Type Unknown Urine Color Yellow Urine Clarity Clear Urine pH 5.5 Urine Specific [place] 1.025 Urine Protein Neg Urine Glucose (UA) Neg mg/dL Urine Ketones (Stick) Neg mg/dL Urine Blood Neg Urine Nitrite Neg Urine Bilirubin Neg Urine Urobilinogen Dipstick 0.2 mg/dL Urine Leukocyte Esterase Neg Urine RBC 0 /HPF Urine WBC 5-10 /HPF Urine Bacteria Few /HPF Test 05/18/21 17:18 05/18/21 19:13 Glucose (Fingerstick) 200 mg/dL 191 mg/dL Current Medications Medications (Trade) Dose Ordered Sig/Shahid Route PRN Reason Start Time Stop Time Status Last Admin Dose Admin Acetaminophen (Tylenol) 650 mg PRN Q6HRS PRN PO MILD PAIN / TEMP > 100.3'F 05/11/21 23:00 05/12/21 00:35 DC Multi-Ingredient Ointment (Analgesic [place]) 1 rocael PRN QID PRN TP MUSCLE PAIN 05/11/21 23:00 05/16/21 11:06 Al Hydroxide/Mg Hydroxide (Mylanta Plus Xs) 15 ml PRN AFTMEALHC PRN PO DYSPEPSIA 05/11/21 23:00 05/14/21 15:26 Magnesium Hydroxide (Milk Of Magnesia) 2,400 mg PRN QHS PRN PO CONSTIPATION-2ND CHOICE 05/11/21 23:00 Acetaminophen (Tylenol) 1,000 mg PRN Q6HRS PRN PO MILD PAIN 1-3 05/12/21 00:30 05/15/21 17:34 Amlodipine Besylate (Norvasc) 5 mg DAILY PO 05/12/21 09:00 05/18/21 08:42 Aspirin (Aspirin Enteric Coated) 81 mg DAILY PO 05/12/21 09:00 05/18/21 08:41 Atorvastatin Calcium (Lipitor) 20 mg QHS PO 05/12/21 21:00 05/18/21 20:40 Atropine Sulfate (Isopto Atropine) 1 drop DAILY OS 05/12/21 09:00 05/18/21 08:35 Docusate Sodium (Colace) 100 mg PRN BID PRN PO CONSTIPATION-1ST CHOICE 05/12/21 00:30 Furosemide (Lasix) 20 mg DAILY PO 05/12/21 09:00 05/18/21 08:41 Gabapentin (Neurontin) 300 mg TID PO 05/12/21 09:00 05/18/21 20:39 Lisinopril (Prinivil) 5 mg DAILY PO 05/12/21 09:00 05/18/21 08:40 Methocarbamol (Robaxin) 500 mg PRN QHS PRN PO MUSCLE SPASMS 05/12/21 00:30 05/12/21 20:11 Nitroglycerin (Nitrostat) 0.4 mg PRN Q5MIN PRN SL CHEST PAIN 05/12/21 00:30 Sodium Chloride (Gibran-5) 1 drop PRN QID PRN OU dry eye CHOICE #2 05/12/21 00:30 Tamsulosin HCl (Flomax) 0.4 mg DAILY PO 05/12/21 09:00 05/18/21 08:41 Timolol Maleate (Timoptic 0.25% Ophth) 1 drop BID OD 05/12/21 09:00 05/18/21 20:38 Artificial Tears (Artificial Tears) 1 drop PRN BID PRN OU DRY EYE CHOICE #1 05/12/21 01:00 Carvedilol (Coreg) 12.5 mg BIDWMEALS PO 05/12/21 08:00 05/18/21 17:28 Cyanocobalamin (Vitamin B-12) 1,000 mcg DAILY PO 05/12/21 09:00 05/18/21 08:41 Levetiracetam (Keppra) 1,500 mg BID PO 05/12/21 09:00 05/18/21 20:39 Pantoprazole Sodium (Protonix) 40 mg DAILYAC PO 05/12/21 07:30 05/18/21 08:41 Dexamethasone (Maxidex) 1 drop QID OS 05/12/21 09:00 05/18/21 20:37 Non-Formulary Medication (Riboflavin (Vitamin B-2)) 100 mg DAILY PO 05/12/21 09:00 05/14/21 07:09 DC Folic Acid (Folic Acid) 1 mg DAILY PO 05/12/21 09:00 05/18/21 08:41 Methylphenidate HCl (Methylphenidate HCl) 5 mg PRN DAILY PRN PO . 05/12/21 00:30 05/12/21 10:56 DC Mirtazapine (Remeron) 60 mg QHS PO 05/12/21 21:00 05/12/21 10:56 DC Trazodone HCl (Desyrel) 150 mg QHS PO 05/12/21 21:00 05/18/21 20:40 Venlafaxine HCl (Effexor Xr) 75 mg DAILY PO 05/12/21 09:00 05/12/21 19:29 DC 05/12/21 08:44 Melatonin (Melatonin) 3 mg PRN QHS PRN PO INSOMNIA 05/12/21 00:45 Potassium Chloride (Klor-Con) 20 meq DAILY PO 05/12/21 09:00 05/18/21 08:41 Mirtazapine (Remeron) 30 mg QHS PO 05/12/21 21:00 05/18/21 20:40 Dextrose (Dextrose 50%-Water Syringe) 12.5 gm PRN Q15MIN PRN IV SEE COMMENTS 05/12/21 13:00 Hydrocortisone (Cortaid) 1 rocael BID TP 05/12/21 21:00 05/18/21 20:42 Duloxetine HCl (Cymbalta) 30 mg DAILY PO 05/13/21 09:00 05/14/21 10:00 DC 05/14/21 08:58 Duloxetine HCl (Cymbalta) 60 mg DAILY PO 05/15/21 09:00 05/18/21 08:41 Cyproheptadine HCl (Periactin) 2 mg HS PO 05/13/21 21:00 05/18/21 20:40 Aripiprazole (Abilify) 5 mg DAILY PO 05/14/21 09:00 05/18/21 08:41 Tramadol HCl (Ultram) 100 mg PRN Q8HRS PRN PO PAIN 05/16/21 12:45 05/18/21 20:41 I have reviewed the current psychotropics carefully including drug interactions. Risk benefit ratio favors no change other than as noted in my dictated progress note. Diagnosis: Problems: (1) Major depressive disorder (2) Post traumatic stress disorder (3) Anxiety disorder, unspecified (4) Dementia, vascular, with depression (5) Dementia, vascular, with delusions (6) Major neurocognitive disorder MICKY WHEELER MD May 18, 2021 21:57
--- NOTE | 2021-05-18 22:31 | NUR ---
Patient is in his room on assumption of care, awake in bed. He is flat, pleasant. Compliant with assessments and medications whole. Complained of a 6/10 left shoulder pain and requested PRN Tramadol with his HS meds. Good effect. He denies SI this shift. No further complaints of pain or discomfort. He appears to be sleeping comfortably at present time. Will continue to monitor.
[2021-05-19 05:56] VITALS: BP 109/64
--- NOTE | 2021-05-19 07:15 | PDOC ---
Exam Note: Henry Note: This note is a late entry for 05/17/2021 covers elements not covered in my initial note. Subjective: The patient was seen individually in the evening of 05/17/2021 with Darryl BERMUDEZ, discussed and reviewed the chart. He slept 7-1/2 hours previous night. The patient is still withdrawn but subjectively when I questioned him he states he is not depressed. He feels much better. He states he gets bored and therefore spends time in his room. Review of Systems: No CV, , pulmonary, eye system symptoms on review. Mental Status Exam: The patient is oriented to himself and situation. He was quite verbal, interactive. Speech has some latency, coherent. Abstraction fair. Computation impaired. Language function intact. Attention span short. Mood and affect withdrawn. Laboratory Data: Reviewed. 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 Anxiety disorder unspecified. Plan: Continue current psychotropics. Assessment: Vital Signs/I&O: Vital Signs Date Time Temp Pulse Resp B/P (MAP) Pulse Ox O2 Delivery O2 Flow Rate FiO2 05/19/21 05:56 97.4 65 16 109/64 (79) 93 Room Air 05/17/21 08:32 99.0 I & O 05/18/21 05/18/21 05/19/21 15:00 23:00 07:00 Intake Total 360 ml 960 ml Balance 360 ml 960 ml Labs: Laboratory Tests Test 05/18/21 07:56 05/18/21 10:55 05/18/21 12:05 05/18/21 17:18 Glucose (Fingerstick) 141 mg/dL (70-99) H 150 mg/dL (70-99) H 200 mg/dL (70-99) H Urine Collection Type Unknown Urine Color Yellow Urine Clarity Clear Urine pH 5.5 Urine Specific [place] 1.025 Urine Protein Neg (NEG-TRACE) Urine Glucose (UA) Neg mg/dL (NEG) Urine Ketones (Stick) Neg mg/dL (NEG) Urine Blood Neg (NEG) Urine Nitrite Neg (NEG) Urine Bilirubin Neg (NEG) Urine Urobilinogen Dipstick 0.2 mg/dL (0.2 mg/dL) Urine Leukocyte Esterase Neg (NEG) Urine RBC 0 /HPF (0-2) Urine WBC 5-10 /HPF (0-4) Urine Bacteria Few /HPF (0-FEW) Test 05/18/21 19:13 Glucose (Fingerstick) 191 mg/dL (70-99) H Current Medications: Meds: Laboratory Tests Test 05/18/21 07:56 05/18/21 10:55 05/18/21 12:05 05/18/21 17:18 Glucose (Fingerstick) 141 mg/dL 150 mg/dL 200 mg/dL Urine Collection Type Unknown Urine Color Yellow Urine Clarity Clear Urine pH 5.5 Urine Specific [place] 1.025 Urine Protein Neg Urine Glucose (UA) Neg mg/dL Urine Ketones (Stick) Neg mg/dL Urine Blood Neg Urine Nitrite Neg Urine Bilirubin Neg Urine Urobilinogen Dipstick 0.2 mg/dL Urine Leukocyte Esterase Neg Urine RBC 0 /HPF Urine WBC 5-10 /HPF Urine Bacteria Few /HPF Test 05/18/21 19:13 Glucose (Fingerstick) 191 mg/dL Current Medications Medications (Trade) Dose Ordered Sig/Shahid Route PRN Reason Start Time Stop Time Status Last Admin Dose Admin Acetaminophen (Tylenol) 650 mg PRN Q6HRS PRN PO MILD PAIN / TEMP > 100.3'F 05/11/21 23:00 05/12/21 00:35 DC Multi-Ingredient Ointment (Analgesic [place]) 1 rocael PRN QID PRN TP MUSCLE PAIN 05/11/21 23:00 05/16/21 11:06 Al Hydroxide/Mg Hydroxide (Mylanta Plus Xs) 15 ml PRN AFTMEALHC PRN PO DYSPEPSIA 05/11/21 23:00 05/14/21 15:26 Magnesium Hydroxide (Milk Of Magnesia) 2,400 mg PRN QHS PRN PO CONSTIPATION-2ND CHOICE 05/11/21 23:00 Acetaminophen (Tylenol) 1,000 mg PRN Q6HRS PRN PO MILD PAIN 1-3 05/12/21 00:30 05/15/21 17:34 Amlodipine Besylate (Norvasc) 5 mg DAILY PO 05/12/21 09:00 05/18/21 08:42 Aspirin (Aspirin Enteric Coated) 81 mg DAILY PO 05/12/21 09:00 05/18/21 08:41 Atorvastatin Calcium (Lipitor) 20 mg QHS PO 05/12/21 21:00 05/18/21 20:40 Atropine Sulfate (Isopto Atropine) 1 drop DAILY OS 05/12/21 09:00 05/18/21 08:35 Docusate Sodium (Colace) 100 mg PRN BID PRN PO CONSTIPATION-1ST CHOICE 05/12/21 00:30 Furosemide (Lasix) 20 mg DAILY PO 05/12/21 09:00 05/18/21 08:41 Gabapentin (Neurontin) 300 mg TID PO 05/12/21 09:00 05/18/21 20:39 Lisinopril (Prinivil) 5 mg DAILY PO 05/12/21 09:00 05/18/21 08:40 Methocarbamol (Robaxin) 500 mg PRN QHS PRN PO MUSCLE SPASMS 05/12/21 00:30 05/12/21 20:11 Nitroglycerin (Nitrostat) 0.4 mg PRN Q5MIN PRN SL CHEST PAIN 05/12/21 00:30 Sodium Chloride (Gibran-5) 1 drop PRN QID PRN OU dry eye CHOICE #2 05/12/21 00:30 Tamsulosin HCl (Flomax) 0.4 mg DAILY PO 05/12/21 09:00 05/18/21 08:41 Timolol Maleate (Timoptic 0.25% Oph) 1 drop BID OD 05/12/21 09:00 05/18/21 20:38 Artificial Tears (Artificial Tears) 1 drop PRN BID PRN OU DRY EYE CHOICE #1 05/12/21 01:00 Carvedilol (Coreg) 12.5 mg BIDWMEALS PO 05/12/21 08:00 05/18/21 17:28 Cyanocobalamin (Vitamin B-12) 1,000 mcg DAILY PO 05/12/21 09:00 05/18/21 08:41 Levetiracetam (Keppra) 1,500 mg BID PO 05/12/21 09:00 05/18/21 20:39 Pantoprazole Sodium (Protonix) 40 mg DAILYAC PO 05/12/21 07:30 05/18/21 08:41 Dexamethasone (Maxidex) 1 drop QID OS 05/12/21 09:00 05/18/21 20:37 Non-Formulary Medication (Riboflavin (Vitamin B-2)) 100 mg DAILY PO 05/12/21 09:00 05/14/21 07:09 DC Folic Acid (Folic Acid) 1 mg DAILY PO 05/12/21 09:00 05/18/21 08:41 Methylphenidate HCl (Methylphenidate HCl) 5 mg PRN DAILY PRN PO . 05/12/21 00:30 05/12/21 10:56 DC Mirtazapine (Remeron) 60 mg QHS PO 05/12/21 21:00 05/12/21 10:56 DC Trazodone HCl (Desyrel) 150 mg QHS PO 05/12/21 21:00 05/18/21 20:40 Venlafaxine HCl (Effexor Xr) 75 mg DAILY PO 05/12/21 09:00 05/12/21 19:29 DC 05/12/21 08:44 Melatonin (Melatonin) 3 mg PRN QHS PRN PO INSOMNIA 05/12/21 00:45 Potassium Chloride (Klor-Con) 20 meq DAILY PO 05/12/21 09:00 05/18/21 08:41 Mirtazapine (Remeron) 30 mg QHS PO 05/12/21 21:00 05/18/21 20:40 Dextrose (Dextrose 50%-Water Syringe) 12.5 gm PRN Q15MIN PRN IV SEE COMMENTS 05/12/21 13:00 Hydrocortisone (Cortaid) 1 rocael BID TP 05/12/21 21:00 05/18/21 20:42 Duloxetine HCl (Cymbalta) 30 mg DAILY PO 05/13/21 09:00 05/14/21 10:00 DC 05/14/21 08:58 Duloxetine HCl (Cymbalta) 60 mg DAILY PO 05/15/21 09:00 05/18/21 08:41 Cyproheptadine HCl (Periactin) 2 mg HS PO 05/13/21 21:00 05/18/21 20:40 Aripiprazole (Abilify) 5 mg DAILY PO 05/14/21 09:00 05/18/21 08:41 Tramadol HCl (Ultram) 100 mg PRN Q8HRS PRN PO PAIN 05/16/21 12:45 05/18/21 20:41 I have reviewed the current psychotropics carefully including drug interactions. Risk benefit ratio favors no change other than as noted in my dictated progress note. Diagnosis: Problems: (1) Major depressive disorder (2) Post traumatic stress disorder (3) Anxiety disorder, unspecified (4) Dementia, vascular, with depression (5) Dementia, vascular, with delusions (6) Major neurocognitive disorder MICKY WHEELER MD May 19, 2021 07:15
--- NOTE | 2021-05-19 07:31 | PDOC ---
Exam Note: Henry Note: This note is a late entry for 05/18/2021 covers elements not covered in my initial note. Subjective: The patient was seen individually in the evening of 05/18/2021 with Darryl BERMUDEZ, discussed and reviewed the chart. He slept 8-1/4 hours previous night. The patient has been somewhat withdrawn. I discussed of being withdrawn in his room. He stats he gets bored but reiterated repeatedly that he was not depressed now. Review of Systems: No CV, , pulmonary, eye system symptoms on review. He is slightly hard of hearing. Mental Status Exam: The patient is oriented to himself and situation. He was quite verbal, interactive. Speech has some latency, coherent. Abstraction fair. Computation impaired. Language function intact. Attention span short. Mood and affect withdrawn. Laboratory Data: Reviewed. 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 Anxiety disorder unspecified. Plan: Continue current psychotropics. Assessment: Vital Signs/I&O: Vital Signs Date Time Temp Pulse Resp B/P (MAP) Pulse Ox O2 Delivery O2 Flow Rate FiO2 05/19/21 05:56 97.4 65 16 109/64 (79) 93 Room Air 05/17/21 08:32 99.0 I & O 05/18/21 05/18/21 05/19/21 15:00 23:00 07:00 Intake Total 360 ml 960 ml Balance 360 ml 960 ml Labs: Laboratory Tests Test 05/18/21 07:56 05/18/21 10:55 05/18/21 12:05 05/18/21 17:18 Glucose (Fingerstick) 141 mg/dL (70-99) H 150 mg/dL (70-99) H 200 mg/dL (70-99) H Urine Collection Type Unknown Urine Color Yellow Urine Clarity Clear Urine pH 5.5 Urine Specific [place] 1.025 Urine Protein Neg (NEG-TRACE) Urine Glucose (UA) Neg mg/dL (NEG) Urine Ketones (Stick) Neg mg/dL (NEG) Urine Blood Neg (NEG) Urine Nitrite Neg (NEG) Urine Bilirubin Neg (NEG) Urine Urobilinogen Dipstick 0.2 mg/dL (0.2 mg/dL) Urine Leukocyte Esterase Neg (NEG) Urine RBC 0 /HPF (0-2) Urine WBC 5-10 /HPF (0-4) Urine Bacteria Few /HPF (0-FEW) Test 05/18/21 19:13 05/19/21 07:21 Glucose (Fingerstick) 191 mg/dL (70-99) H 135 mg/dL (70-99) H Current Medications: Meds: Laboratory Tests Test 05/18/21 07:56 05/18/21 10:55 05/18/21 12:05 05/18/21 17:18 Glucose (Fingerstick) 141 mg/dL 150 mg/dL 200 mg/dL Urine Collection Type Unknown Urine Color Yellow Urine Clarity Clear Urine pH 5.5 Urine Specific [place] 1.025 Urine Protein Neg Urine Glucose (UA) Neg mg/dL Urine Ketones (Stick) Neg mg/dL Urine Blood Neg Urine Nitrite Neg Urine Bilirubin Neg Urine Urobilinogen Dipstick 0.2 mg/dL Urine Leukocyte Esterase Neg Urine RBC 0 /HPF Urine WBC 5-10 /HPF Urine Bacteria Few /HPF Test 05/18/21 19:13 05/19/21 07:21 Glucose (Fingerstick) 191 mg/dL 135 mg/dL Current Medications Medications (Trade) Dose Ordered Sig/Shahid Route PRN Reason Start Time Stop Time Status Last Admin Dose Admin Acetaminophen (Tylenol) 650 mg PRN Q6HRS PRN PO MILD PAIN / TEMP > 100.3'F 05/11/21 23:00 05/12/21 00:35 DC Multi-Ingredient Ointment (Analgesic [place]) 1 rocael PRN QID PRN TP MUSCLE PAIN 05/11/21 23:00 05/16/21 11:06 Al Hydroxide/Mg Hydroxide (Mylanta Plus Xs) 15 ml PRN AFTMEALHC PRN PO DYSPEPSIA 05/11/21 23:00 05/14/21 15:26 Magnesium Hydroxide (Milk Of Magnesia) 2,400 mg PRN QHS PRN PO CONSTIPATION-2ND CHOICE 05/11/21 23:00 Acetaminophen (Tylenol) 1,000 mg PRN Q6HRS PRN PO MILD PAIN 1-3 05/12/21 00:30 05/15/21 17:34 Amlodipine Besylate (Norvasc) 5 mg DAILY PO 05/12/21 09:00 05/18/21 08:42 Aspirin (Aspirin Enteric Coated) 81 mg DAILY PO 05/12/21 09:00 05/18/21 08:41 Atorvastatin Calcium (Lipitor) 20 mg QHS PO 05/12/21 21:00 05/18/21 20:40 Atropine Sulfate (Isopto Atropine) 1 drop DAILY OS 05/12/21 09:00 05/18/21 08:35 Docusate Sodium (Colace) 100 mg PRN BID PRN PO CONSTIPATION-1ST CHOICE 05/12/21 00:30 Furosemide (Lasix) 20 mg DAILY PO 05/12/21 09:00 05/18/21 08:41 Gabapentin (Neurontin) 300 mg TID PO 05/12/21 09:00 05/18/21 20:39 Lisinopril (Prinivil) 5 mg DAILY PO 05/12/21 09:00 05/18/21 08:40 Methocarbamol (Robaxin) 500 mg PRN QHS PRN PO MUSCLE SPASMS 05/12/21 00:30 05/12/21 20:11 Nitroglycerin (Nitrostat) 0.4 mg PRN Q5MIN PRN SL CHEST PAIN 05/12/21 00:30 Sodium Chloride (Gibran-5) 1 drop PRN QID PRN OU dry eye CHOICE #2 05/12/21 00:30 Tamsulosin HCl (Flomax) 0.4 mg DAILY PO 05/12/21 09:00 05/18/21 08:41 Timolol Maleate (Timoptic 0.25% Ophth) 1 drop BID OD 05/12/21 09:00 05/18/21 20:38 Artificial Tears (Artificial Tears) 1 drop PRN BID PRN OU DRY EYE CHOICE #1 05/12/21 01:00 Carvedilol (Coreg) 12.5 mg BIDWMEALS PO 05/12/21 08:00 05/18/21 17:28 Cyanocobalamin (Vitamin B-12) 1,000 mcg DAILY PO 05/12/21 09:00 05/18/21 08:41 Levetiracetam (Keppra) 1,500 mg BID PO 05/12/21 09:00 05/18/21 20:39 Pantoprazole Sodium (Protonix) 40 mg DAILYAC PO 05/12/21 07:30 05/18/21 08:41 Dexamethasone (Maxidex) 1 drop QID OS 05/12/21 09:00 05/18/21 20:37 Non-Formulary Medication (Riboflavin (Vitamin B-2)) 100 mg DAILY PO 05/12/21 09:00 05/14/21 07:09 DC Folic Acid (Folic Acid) 1 mg DAILY PO 05/12/21 09:00 05/18/21 08:41 Methylphenidate HCl (Methylphenidate HCl) 5 mg PRN DAILY PRN PO . 05/12/21 00:30 05/12/21 10:56 DC Mirtazapine (Remeron) 60 mg QHS PO 05/12/21 21:00 05/12/21 10:56 DC Trazodone HCl (Desyrel) 150 mg QHS PO 05/12/21 21:00 05/18/21 20:40 Venlafaxine HCl (Effexor Xr) 75 mg DAILY PO 05/12/21 09:00 05/12/21 19:29 DC 05/12/21 08:44 Melatonin (Melatonin) 3 mg PRN QHS PRN PO INSOMNIA 05/12/21 00:45 Potassium Chloride (Klor-Con) 20 meq DAILY PO 05/12/21 09:00 05/18/21 08:41 Mirtazapine (Remeron) 30 mg QHS PO 05/12/21 21:00 05/18/21 20:40 Dextrose (Dextrose 50%-Water Syringe) 12.5 gm PRN Q15MIN PRN IV SEE COMMENTS 05/12/21 13:00 Hydrocortisone (Cortaid) 1 rocael BID TP 05/12/21 21:00 05/18/21 20:42 Duloxetine HCl (Cymbalta) 30 mg DAILY PO 05/13/21 09:00 05/14/21 10:00 DC 05/14/21 08:58 Duloxetine HCl (Cymbalta) 60 mg DAILY PO 05/15/21 09:00 05/18/21 08:41 Cyproheptadine HCl (Periactin) 2 mg HS PO 05/13/21 21:00 05/18/21 20:40 Aripiprazole (Abilify) 5 mg DAILY PO 05/14/21 09:00 05/18/21 08:41 Tramadol HCl (Ultram) 100 mg PRN Q8HRS PRN PO PAIN 05/16/21 12:45 05/18/21 20:41 I have reviewed the current psychotropics carefully including drug interactions. Risk benefit ratio favors no change other than as noted in my dictated progress note. Diagnosis: Problems: (1) Major depressive disorder (2) Post traumatic stress disorder (3) Anxiety disorder, unspecified (4) Dementia, vascular, with depression (5) Dementia, vascular, with delusions (6) Major neurocognitive disorder MICKY WHEELER MD May 19, 2021 07:31
[2021-05-19] MEDS: HYDROCORTISONE 1% TOPICAL OINTMENT 30GM TUBE. TP SCH ×2 (08:37→21:00)
[2021-05-19] MEDS: ATROPINE 1% OPHTH SOLUTION 5ML BOTTLE. OS SCH (08:37)
[2021-05-19] MEDS: TIMOLOL 0.25% OPHTH SOLUTION 5ML BOTTLE. OD SCH ×2 (08:37→20:59)
[2021-05-19] MEDS: DEXAMETHASONE 0.1% OPHTH SOLUTION 5ML BOTTLE. OS SCH ×4 (08:37→20:58)
[2021-05-19] MEDS: DULoxetine HCL 60 MG CAPSULE.DR PO SCH (08:37)
[2021-05-19] MEDS: levETIRAcetam 500 MG TABLET PO SCH ×2 (08:37→21:00)
[2021-05-19] MEDS: ASPIRIN ENTERIC COATED 81 MG TABLET.DR. PO SCH (08:38)
[2021-05-19] MEDS: TAMSULOSIN 0.4 MG CAP.ER.24H. PO SCH (08:38)
[2021-05-19] MEDS: PANTOPRAZOLE 40 MG TABLET. PO SCH (08:38)
[2021-05-19] MEDS: LISINOPRIL 5 MG TABLET. PO SCH (08:38)
[2021-05-19] MEDS: amLODIPine BESYLATE 5 MG TABLET PO SCH (08:38)
[2021-05-19] MEDS: FUROSEMIDE 20 MG TABLET PO SCH (08:38)
[2021-05-19] MEDS: GABAPENTIN 300 MG CAPSULE. PO SCH ×3 (08:39→20:58)
[2021-05-19] MEDS: CARVEDILOL 12.5 MG TABLET PO SCH ×2 (08:39→17:47)
[2021-05-19] MEDS: CYANOCOBALAMIN (VITAMIN B-12) 1,000 MCG TABLET. PO SCH (08:39)
[2021-05-19] MEDS: ARIPiprazole 5 MG TABLET PO SCH (08:39)
[2021-05-19] MEDS: POTASSIUM CHLORIDE 20 MEQ TABLET.ER. PO SCH (08:39)
[2021-05-19] MEDS: FOLIC ACID 1 MG TABLET PO SCH (08:39)
[2021-05-19] MEDS: traMADol 50 MG TABLET PO PRN ×2 (08:40→21:00)
[2021-05-19 16:16] VITALS: BP 105/61
--- NOTE | 2021-05-19 18:28 | NUR ---
Patient has been calm, compliant, mildly confused, and withdrawn to his room throughout this shift. He has been pleasant and interactive with staff; denies SI. Patient listened to [employer] [employer] music on a [place] during the afternoon. Will continue to monitor and report to oncoming shift.
[2021-05-19] MEDS: CYPROHEPTADINE 4 MG TABLET. PO SCH (20:59)
[2021-05-19] MEDS: ATORVASTATIN CALCIUM 20 MG TABLET PO SCH (21:00)
[2021-05-19] MEDS: MIRTAZAPINE 30 MG TABLET PO SCH (21:00)
[2021-05-19] MEDS: traZODone 50 MG TABLET. PO SCH (21:00)
--- NOTE | 2021-05-19 23:17 | PDOC ---
Exam Note: Henry Note: Please also refer to the separate dictated note~for this date of service dictated separately.~Patient seen individually. Discussed the patient with Nursing staff reviewed the chart.~Reviewed interim history and current functioning. Reviewed vital signs,~Labs/ Radiology~and current medications noted below. Continue current treatment with the changes noted in the dictated addendum note Assessment: Vital Signs/I&O: Vital Signs Date Time Temp Pulse Resp B/P (MAP) Pulse Ox O2 Delivery O2 Flow Rate FiO2 05/19/21 21:35 90 05/19/21 17:47 61 105/61 05/19/21 16:16 97.5 18 05/19/21 09:30 Room Air 05/17/21 08:32 99.0 I & O 05/18/21 05/18/21 05/19/21 15:00 23:00 07:00 Intake Total 360 ml 960 ml Balance 360 ml 960 ml Labs: Laboratory Tests Test 05/19/21 07:21 05/19/21 11:12 Glucose (Fingerstick) 135 mg/dL (70-99) H 176 mg/dL (70-99) H Current Medications: Meds: Laboratory Tests Test 05/19/21 07:21 05/19/21 11:12 Glucose (Fingerstick) 135 mg/dL 176 mg/dL Current Medications Medications (Trade) Dose Ordered Sig/Shahid Route PRN Reason Start Time Stop Time Status Last Admin Dose Admin Acetaminophen (Tylenol) 650 mg PRN Q6HRS PRN PO MILD PAIN / TEMP > 100.3'F 05/11/21 23:00 05/12/21 00:35 DC Multi-Ingredient Ointment (Analgesic [place]) 1 rocael PRN QID PRN TP MUSCLE PAIN 05/11/21 23:00 05/16/21 11:06 Al Hydroxide/Mg Hydroxide (Mylanta Plus Xs) 15 ml PRN AFTMEALHC PRN PO DYSPEPSIA 05/11/21 23:00 05/14/21 15:26 Magnesium Hydroxide (Milk Of Magnesia) 2,400 mg PRN QHS PRN PO CONSTIPATION-2ND CHOICE 05/11/21 23:00 Acetaminophen (Tylenol) 1,000 mg PRN Q6HRS PRN PO MILD PAIN 1-3 05/12/21 00:30 05/15/21 17:34 Amlodipine Besylate (Norvasc) 5 mg DAILY PO 05/12/21 09:00 05/19/21 08:38 Aspirin (Aspirin Enteric Coated) 81 mg DAILY PO 05/12/21 09:00 05/19/21 08:38 Atorvastatin Calcium (Lipitor) 20 mg QHS PO 05/12/21 21:00 05/19/21 21:00 Atropine Sulfate (Isopto Atropine) 1 drop DAILY OS 05/12/21 09:00 05/19/21 08:37 Docusate Sodium (Colace) 100 mg PRN BID PRN PO CONSTIPATION-1ST CHOICE 05/12/21 00:30 Furosemide (Lasix) 20 mg DAILY PO 05/12/21 09:00 05/19/21 08:38 Gabapentin (Neurontin) 300 mg TID PO 05/12/21 09:00 05/19/21 20:58 Lisinopril (Prinivil) 5 mg DAILY PO 05/12/21 09:00 05/19/21 08:38 Methocarbamol (Robaxin) 500 mg PRN QHS PRN PO MUSCLE SPASMS 05/12/21 00:30 05/12/21 20:11 Nitroglycerin (Nitrostat) 0.4 mg PRN Q5MIN PRN SL CHEST PAIN 05/12/21 00:30 Sodium Chloride (Gibran-5) 1 drop PRN QID PRN OU dry eye CHOICE #2 05/12/21 00:30 Tamsulosin HCl (Flomax) 0.4 mg DAILY PO 05/12/21 09:00 05/19/21 08:38 Timolol Maleate (Timoptic 0.25% Oph) 1 drop BID OD 05/12/21 09:00 05/19/21 20:59 Artificial Tears (Artificial Tears) 1 drop PRN BID PRN OU DRY EYE CHOICE #1 05/12/21 01:00 Carvedilol (Coreg) 12.5 mg BIDWMEALS PO 05/12/21 08:00 05/19/21 17:47 Cyanocobalamin (Vitamin B-12) 1,000 mcg DAILY PO 05/12/21 09:00 05/19/21 08:39 Levetiracetam (Keppra) 1,500 mg BID PO 05/12/21 09:00 05/19/21 21:00 Pantoprazole Sodium (Protonix) 40 mg DAILYAC PO 05/12/21 07:30 05/19/21 08:38 Dexamethasone (Maxidex) 1 drop QID OS 05/12/21 09:00 05/19/21 20:58 Non-Formulary Medication (Riboflavin (Vitamin B-2)) 100 mg DAILY PO 05/12/21 09:00 05/14/21 07:09 DC Folic Acid (Folic Acid) 1 mg DAILY PO 05/12/21 09:00 05/19/21 08:39 Methylphenidate HCl (Methylphenidate HCl) 5 mg PRN DAILY PRN PO . 05/12/21 00:30 05/12/21 10:56 DC Mirtazapine (Remeron) 60 mg QHS PO 05/12/21 21:00 05/12/21 10:56 DC Trazodone HCl (Desyrel) 150 mg QHS PO 05/12/21 21:00 05/19/21 21:00 Venlafaxine HCl (Effexor Xr) 75 mg DAILY PO 05/12/21 09:00 05/12/21 19:29 DC 05/12/21 08:44 Melatonin (Melatonin) 3 mg PRN QHS PRN PO INSOMNIA 05/12/21 00:45 Potassium Chloride (Klor-Con) 20 meq DAILY PO 05/12/21 09:00 05/19/21 08:39 Mirtazapine (Remeron) 30 mg QHS PO 05/12/21 21:00 05/19/21 21:00 Dextrose (Dextrose 50%-Water Syringe) 12.5 gm PRN Q15MIN PRN IV SEE COMMENTS 05/12/21 13:00 Hydrocortisone (Cortaid) 1 rocael BID TP 05/12/21 21:00 05/19/21 21:00 Duloxetine HCl (Cymbalta) 30 mg DAILY PO 05/13/21 09:00 05/14/21 10:00 DC 05/14/21 08:58 Duloxetine HCl (Cymbalta) 60 mg DAILY PO 05/15/21 09:00 05/19/21 08:37 Cyproheptadine HCl (Periactin) 2 mg HS PO 05/13/21 21:00 05/19/21 20:59 Aripiprazole (Abilify) 5 mg DAILY PO 05/14/21 09:00 05/19/21 08:39 Tramadol HCl (Ultram) 100 mg PRN Q8HRS PRN PO MOD-SEV PAIN 05/16/21 12:45 05/19/21 21:00 I have reviewed the current psychotropics carefully including drug interactions. Risk benefit ratio favors no change other than as noted in my dictated progress note. Diagnosis: Problems: (1) Major depressive disorder (2) Post traumatic stress disorder (3) Anxiety disorder, unspecified (4) Dementia, vascular, with depression (5) Dementia, vascular, with delusions (6) Major neurocognitive disorder MICKY WHEELER MD May 19, 2021 23:17
--- NOTE | 2021-05-19 23:59 | NUR ---
Patient is in his room on assumption of care, awake in bed. He is flat, pleasant. Compliant with assessments and medications whole. Patient asked for a PRN Tramadol with his HS meds, and then stated "Ya know? I never realized how much my depression was connected to my pain. Now that I am taking that Tramadol I feel so much better and less depressed." He denies SI this shift. No further complaints of pain or discomfort. He appears to be sleeping comfortably at present time. Will continue to monitor.
[2021-05-20 06:34] VITALS: BP 101/57
[2021-05-20] MEDS: DEXAMETHASONE 0.1% OPHTH SOLUTION 5ML BOTTLE. OS SCH ×4 (08:42→20:45)
[2021-05-20] MEDS: TIMOLOL 0.25% OPHTH SOLUTION 5ML BOTTLE. OD SCH ×2 (08:42→20:45)
[2021-05-20] MEDS: levETIRAcetam 500 MG TABLET PO SCH ×2 (08:43→20:47)
[2021-05-20] MEDS: PANTOPRAZOLE 40 MG TABLET. PO SCH (08:43)
[2021-05-20] MEDS: ASPIRIN ENTERIC COATED 81 MG TABLET.DR. PO SCH (08:43)
[2021-05-20] MEDS: amLODIPine BESYLATE 5 MG TABLET PO SCH (08:43)
[2021-05-20] MEDS: DULoxetine HCL 60 MG CAPSULE.DR PO SCH (08:44)
[2021-05-20] MEDS: FUROSEMIDE 20 MG TABLET PO SCH (08:44)
[2021-05-20] MEDS: TAMSULOSIN 0.4 MG CAP.ER.24H. PO SCH (08:44)
[2021-05-20] MEDS: CYANOCOBALAMIN (VITAMIN B-12) 1,000 MCG TABLET. PO SCH (08:44)
[2021-05-20] MEDS: CARVEDILOL 12.5 MG TABLET PO SCH ×2 (08:44→17:16)
[2021-05-20] MEDS: POTASSIUM CHLORIDE 20 MEQ TABLET.ER. PO SCH (08:44)
[2021-05-20] MEDS: ARIPiprazole 5 MG TABLET PO SCH (08:45)
[2021-05-20] MEDS: GABAPENTIN 300 MG CAPSULE. PO SCH ×3 (08:45→20:47)
[2021-05-20] MEDS: FOLIC ACID 1 MG TABLET PO SCH (08:45)
[2021-05-20] MEDS: LISINOPRIL 5 MG TABLET. PO SCH (08:45)
[2021-05-20] MEDS: ATROPINE 1% OPHTH SOLUTION 5ML BOTTLE. OS SCH (08:45)
[2021-05-20] MEDS: traMADol 50 MG TABLET PO PRN ×2 (09:18→20:46)
[2021-05-20] MEDS: HYDROCORTISONE 1% TOPICAL OINTMENT 30GM TUBE. TP SCH ×2 (09:18→20:48)
--- NOTE | 2021-05-20 13:09 | NUR ---
Nursing note: Client in dining room at time of AM med pass and assessment, takes meds whole. He is pleasant, med compliant and cooperative. He continues to have a depressed affect, though he denied having any depression. Client c/o pain in bilateral shoulders and lower back, PRN given per order. He is currently in his bed room. Will continue to monitor.
[2021-05-20 15:45] VITALS: BP 107/58
[2021-05-20] MEDS: MIRTAZAPINE 30 MG TABLET PO SCH (20:47)
[2021-05-20] MEDS: ATORVASTATIN CALCIUM 20 MG TABLET PO SCH (20:47)
[2021-05-20] MEDS: CYPROHEPTADINE 4 MG TABLET. PO SCH (20:48)
[2021-05-20] MEDS: traZODone 50 MG TABLET. PO SCH (20:48)
--- NOTE | 2021-05-20 23:37 | NUR ---
Patient is in his room on assumption of care, awake in bed. He is pleasant, more interactive than usual. Compliant with assessments and medications whole. Patient asked for a PRN Tramadol with his HS meds. Cooperative with shower and HS care. He denies SI this shift. No further complaints of pain or discomfort. He appears to be sleeping comfortably at present time. Will continue to monitor.
[2021-05-21 05:55] VITALS: BP 177/71
[2021-05-21] MEDS: MAG HYDROX/AL HYDROX/SIMETH 30 ML ORAL.SUSP PO PRN (05:55)
[2021-05-21] MEDS: TIMOLOL 0.25% OPHTH SOLUTION 5ML BOTTLE. OD SCH ×2 (09:02→20:14)
[2021-05-21] MEDS: GABAPENTIN 300 MG CAPSULE. PO SCH ×3 (09:02→20:12)
[2021-05-21] MEDS: ATROPINE 1% OPHTH SOLUTION 5ML BOTTLE. OS SCH (09:02)
[2021-05-21] MEDS: TAMSULOSIN 0.4 MG CAP.ER.24H. PO SCH (09:03)
[2021-05-21] MEDS: DULoxetine HCL 60 MG CAPSULE.DR PO SCH (09:03)
[2021-05-21] MEDS: PANTOPRAZOLE 40 MG TABLET. PO SCH (09:03)
[2021-05-21] MEDS: FUROSEMIDE 20 MG TABLET PO SCH (09:03)
[2021-05-21] MEDS: FOLIC ACID 1 MG TABLET PO SCH (09:03)
[2021-05-21] MEDS: levETIRAcetam 500 MG TABLET PO SCH ×2 (09:03→20:13)
[2021-05-21] MEDS: POTASSIUM CHLORIDE 20 MEQ TABLET.ER. PO SCH (09:03)
[2021-05-21] MEDS: ARIPiprazole 5 MG TABLET PO SCH (09:03)
[2021-05-21] MEDS: ASPIRIN ENTERIC COATED 81 MG TABLET.DR. PO SCH (09:04)
[2021-05-21] MEDS: CYANOCOBALAMIN (VITAMIN B-12) 1,000 MCG TABLET. PO SCH (09:04)
[2021-05-21] MEDS: amLODIPine BESYLATE 5 MG TABLET PO SCH (09:04)
[2021-05-21] MEDS: LISINOPRIL 5 MG TABLET. PO SCH (09:04)
[2021-05-21] MEDS: CARVEDILOL 12.5 MG TABLET PO SCH ×2 (09:04→17:26)
[2021-05-21] MEDS: DEXAMETHASONE 0.1% OPHTH SOLUTION 5ML BOTTLE. OS SCH ×4 (09:05→20:14)
[2021-05-21] MEDS: traMADol 50 MG TABLET PO PRN ×2 (09:05→20:13)
[2021-05-21] MEDS: HYDROCORTISONE 1% TOPICAL OINTMENT 30GM TUBE. TP SCH ×2 (09:05→20:14)
--- NOTE | 2021-05-21 09:05 | NUR ---
Nursing note: Client in bed room at time of AM med pass and assessment, takes meds whole. He is pleasant, med compliant and cooperative. Client put himself on the floor this morning, SaO2 was 81% with exertion of trying to get up. 2L O2 initiated per nasal canula. He continues to have a depressed affect, though he denied having any depression or SI. Client c/o pain in bilateral shoulders and lower back, PRN given per order. He is currently in his bed room. Will continue to monitor.
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
--- NOTE | 2021-05-21 11:30 | NUR ---
WEEKLY ACTIVITY THERAPY NOTE Date of Admission: 05/11/21 Date of AT Assessment: 05/14 Precipitating behaviors that initiated intake and admission: SI thoughts/plan to jump off balcony at his house; recent family stressors, argument with family members; increased depression, crying spells, and insomnia. Goal aimed: to increase engagement and socialization: Initial Goal: Pt. will participate in at least five individual or Activity Therapy groups before discharge. Weekly progress towards goal: on track (05/14-music/flexibility/name dropper, 05/15- progression/grid categories, 05/15-guess the tv show theme song, 05/17-balloon bop) Group participation level: 1 min, 3 mod Weekly highlights: guess the TV show theme song, balloon bop Behaviors observed: withdrawn to room, independent and pleasant Plan: no change to goal Beneficial adaptations:
--- NOTE | 2021-05-21 15:10 | NUR ---
Treatment team note: Pt is eating roughly 75% of meals and sleeping on average 8 hours per night. Pt appears to be more withdrawn to his room and only attended one group this week with moderate participation. Pt denies SI thought or plan but continues to have a flat affect. Pt appears confused and was found on the floor this morning; furthermore, needing an increase in oxygen as his sats were low. Pt is compliant with medications and cares; pt does have a UTI and will receive treatment for it. Pt plans to discharge home with community services in which SW will plan to work with pt and pt family on discharge arrangements.
[2021-05-21 15:39] VITALS: BP 109/65
[2021-05-21] MEDS: CYPROHEPTADINE 4 MG TABLET. PO SCH (20:13)
[2021-05-21] MEDS: ATORVASTATIN CALCIUM 20 MG TABLET PO SCH (20:13)
[2021-05-21] MEDS: MIRTAZAPINE 30 MG TABLET PO SCH (20:13)
[2021-05-21] MEDS: traZODone 50 MG TABLET. PO SCH (20:13)
--- NOTE | 2021-05-21 22:05 | PDOC ---
Exam Note: Henry Note: Please also refer to the separate dictated note~for this date of service dictated separately.~Patient seen individually. Discussed the patient with Nursing staff reviewed the chart.~Reviewed interim history and current functioning. Reviewed vital signs,~Labs/ Radiology~and current medications noted below. Continue current treatment with the changes noted in the dictated addendum note Assessment: Vital Signs/I&O: Vital Signs Date Time Temp Pulse Resp B/P (MAP) Pulse Ox O2 Delivery O2 Flow Rate FiO2 05/21/21 20:43 99 05/21/21 17:26 68 109/65 05/21/21 15:39 97.8 16 05/21/21 09:35 Nasal Cannula 05/21/21 09:05 2.0 I & O 05/20/21 05/20/21 05/21/21 15:00 23:00 07:00 Intake Total 720 ml 720 ml Balance 720 ml 720 ml Labs: Laboratory Tests Test 05/21/21 07:31 Glucose (Fingerstick) 138 mg/dL (70-99) H Current Medications: Meds: Laboratory Tests Test 05/21/21 07:31 Glucose (Fingerstick) 138 mg/dL Current Medications Medications (Trade) Dose Ordered Sig/Shahid Route PRN Reason Start Time Stop Time Status Last Admin Dose Admin Acetaminophen (Tylenol) 650 mg PRN Q6HRS PRN PO MILD PAIN / TEMP > 100.3'F 05/11/21 23:00 05/12/21 00:35 DC Multi-Ingredient Ointment (Analgesic [place]) 1 rocael PRN QID PRN TP MUSCLE PAIN 05/11/21 23:00 05/16/21 11:06 Al Hydroxide/Mg Hydroxide (Mylanta Plus Xs) 15 ml PRN AFTMEALHC PRN PO DYSPEPSIA 05/11/21 23:00 05/21/21 05:55 Magnesium Hydroxide (Milk Of Magnesia) 2,400 mg PRN QHS PRN PO CONSTIPATION-2ND CHOICE 05/11/21 23:00 Acetaminophen (Tylenol) 1,000 mg PRN Q6HRS PRN PO MILD PAIN 1-3 05/12/21 00:30 05/15/21 17:34 Amlodipine Besylate (Norvasc) 5 mg DAILY PO 05/12/21 09:00 05/21/21 09:04 Aspirin (Aspirin Enteric Coated) 81 mg DAILY PO 05/12/21 09:00 05/21/21 09:04 Atorvastatin Calcium (Lipitor) 20 mg QHS PO 05/12/21 21:00 05/21/21 20:13 Atropine Sulfate (Isopto Atropine) 1 drop DAILY OS 05/12/21 09:00 05/21/21 09:02 Docusate Sodium (Colace) 100 mg PRN BID PRN PO CONSTIPATION-1ST CHOICE 05/12/21 00:30 Furosemide (Lasix) 20 mg DAILY PO 05/12/21 09:00 05/21/21 09:03 Gabapentin (Neurontin) 300 mg TID PO 05/12/21 09:00 05/21/21 20:12 Lisinopril (Prinivil) 5 mg DAILY PO 05/12/21 09:00 05/21/21 09:04 Methocarbamol (Robaxin) 500 mg PRN QHS PRN PO MUSCLE SPASMS 05/12/21 00:30 05/12/21 20:11 Nitroglycerin (Nitrostat) 0.4 mg PRN Q5MIN PRN SL CHEST PAIN 05/12/21 00:30 Sodium Chloride (Gibran-5) 1 drop PRN QID PRN OU dry eye CHOICE #2 05/12/21 00:30 Tamsulosin HCl (Flomax) 0.4 mg DAILY PO 05/12/21 09:00 05/21/21 09:03 Timolol Maleate (Timoptic 0.25% Ophth) 1 drop BID OD 05/12/21 09:00 05/21/21 20:14 Artificial Tears (Artificial Tears) 1 drop PRN BID PRN OU DRY EYE CHOICE #1 05/12/21 01:00 Carvedilol (Coreg) 12.5 mg BIDWMEALS PO 05/12/21 08:00 05/21/21 17:26 Cyanocobalamin (Vitamin B-12) 1,000 mcg DAILY PO 05/12/21 09:00 05/21/21 09:04 Levetiracetam (Keppra) 1,500 mg BID PO 05/12/21 09:00 05/21/21 20:13 Pantoprazole Sodium (Protonix) 40 mg DAILYAC PO 05/12/21 07:30 05/21/21 09:03 Dexamethasone (Maxidex) 1 drop QID OS 05/12/21 09:00 05/21/21 20:14 Non-Formulary Medication (Riboflavin (Vitamin B-2)) 100 mg DAILY PO 05/12/21 09:00 05/14/21 07:09 DC Folic Acid (Folic Acid) 1 mg DAILY PO 05/12/21 09:00 05/21/21 09:03 Methylphenidate HCl (Methylphenidate HCl) 5 mg PRN DAILY PRN PO . 05/12/21 00:30 05/12/21 10:56 DC Mirtazapine (Remeron) 60 mg QHS PO 05/12/21 21:00 05/12/21 10:56 DC Trazodone HCl (Desyrel) 150 mg QHS PO 05/12/21 21:00 05/21/21 20:13 Venlafaxine HCl (Effexor Xr) 75 mg DAILY PO 05/12/21 09:00 05/12/21 19:29 DC 05/12/21 08:44 Melatonin (Melatonin) 3 mg PRN QHS PRN PO INSOMNIA 05/12/21 00:45 Potassium Chloride (Klor-Con) 20 meq DAILY PO 05/12/21 09:00 05/21/21 09:03 Mirtazapine (Remeron) 30 mg QHS PO 05/12/21 21:00 05/21/21 20:13 Dextrose (Dextrose 50%-Water Syringe) 12.5 gm PRN Q15MIN PRN IV SEE COMMENTS 05/12/21 13:00 Hydrocortisone (Cortaid) 1 rocael BID TP 05/12/21 21:00 05/21/21 20:14 Duloxetine HCl (Cymbalta) 30 mg DAILY PO 05/13/21 09:00 05/14/21 10:00 DC 05/14/21 08:58 Duloxetine HCl (Cymbalta) 60 mg DAILY PO 05/15/21 09:00 05/21/21 09:03 Cyproheptadine HCl (Periactin) 2 mg HS PO 05/13/21 21:00 05/21/21 20:13 Aripiprazole (Abilify) 5 mg DAILY PO 05/14/21 09:00 05/21/21 09:03 Tramadol HCl (Ultram) 100 mg PRN Q8HRS PRN PO MOD-SEV PAIN 05/16/21 12:45 05/21/21 20:13 I have reviewed the current psychotropics carefully including drug interactions. Risk benefit ratio favors no change other than as noted in my dictated progress note. Diagnosis: Problems: (1) Major depressive disorder (2) Post traumatic stress disorder (3) Anxiety disorder, unspecified (4) Dementia, vascular, with depression (5) Dementia, vascular, with delusions (6) Major neurocognitive disorder MICKY WHEELER MD May 21, 2021 22:05
--- NOTE | 2021-05-21 22:26 | NUR ---
Pt withdrawn to room, lying in bed with eyes closed when approached. Pt calm with a flat, depressed affect but interactive during encounter. Pt cooperative with assessment and compliant with medications administered whole. PRN Tramadol administered for c/o back and bilateral shoulder pain. Pt denies SI at this time.
[2021-05-22 05:49] VITALS: BP 95/59
[2021-05-22] MEDS: FOLIC ACID 1 MG TABLET PO SCH (08:09)
[2021-05-22] MEDS: levETIRAcetam 500 MG TABLET PO SCH ×2 (08:13→20:38)
[2021-05-22] MEDS: ASPIRIN ENTERIC COATED 81 MG TABLET.DR. PO SCH (08:13)
[2021-05-22] MEDS: GABAPENTIN 300 MG CAPSULE. PO SCH ×3 (08:13→20:38)
[2021-05-22] MEDS: ARIPiprazole 5 MG TABLET PO SCH (08:14)
[2021-05-22] MEDS: TAMSULOSIN 0.4 MG CAP.ER.24H. PO SCH (08:14)
[2021-05-22] MEDS: FUROSEMIDE 20 MG TABLET PO SCH (08:14)
[2021-05-22] MEDS: DULoxetine HCL 60 MG CAPSULE.DR PO SCH (08:14)
[2021-05-22] MEDS: LISINOPRIL 5 MG TABLET. PO SCH (08:15)
[2021-05-22] MEDS: CYANOCOBALAMIN (VITAMIN B-12) 1,000 MCG TABLET. PO SCH (08:15)
[2021-05-22] MEDS: POTASSIUM CHLORIDE 20 MEQ TABLET.ER. PO SCH (08:16)
[2021-05-22] MEDS: PANTOPRAZOLE 40 MG TABLET. PO SCH (08:16)
[2021-05-22] MEDS: CARVEDILOL 12.5 MG TABLET PO SCH ×2 (08:17→17:15)
[2021-05-22] MEDS: HYDROCORTISONE 1% TOPICAL OINTMENT 30GM TUBE. TP SCH ×2 (08:17→20:37)
[2021-05-22] MEDS: TIMOLOL 0.25% OPHTH SOLUTION 5ML BOTTLE. OD SCH ×2 (08:17→20:37)
[2021-05-22] MEDS: amLODIPine BESYLATE 5 MG TABLET PO SCH (08:17)
[2021-05-22] MEDS: ATROPINE 1% OPHTH SOLUTION 5ML BOTTLE. OS SCH (08:18)
[2021-05-22] MEDS: DEXAMETHASONE 0.1% OPHTH SOLUTION 5ML BOTTLE. OS SCH ×4 (08:18→20:37)
[2021-05-22] MEDS: traMADol 50 MG TABLET PO PRN ×2 (08:26→20:38)
--- NOTE | 2021-05-22 09:38 | PDOC ---
Exam Note: Henry Note: This note is a late entry for 05/20/2021 covers elements not covered in my initial note. Subjective: The patient was seen on telehealth rounds in the afternoon of 05/20/2021 with the nursing staff taking the telehealth camera to each patient, which was on a secure portal, discussed and reviewed the chart with Anita BERMUDEZ. He slept 7-1/2 hours previous night. I met with the patient in his room. He still spends much time in bed but does come out to the dayroom. He has had some diarrhea. He continues to have the chronic pain, much improved on tramadol. He comes to the dining room for meals. Review of Systems: Ambulation impaired with walker. He still complains of pain. No CV, , pulmonary, eye system symptoms on review. He does complain of some tiredness. Mental Status Exam: The patient is reasonably oriented. Speech is coherent. Abstraction fair. Computation somewhat impaired. Language function intact. Attention span fair. Mood and affect still withdrawn but improved. He states he had a telephone visit with his grandson today which went quite well. Laboratory Data: Reviewed. 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 Anxiety disorder unspecified. Plan: Continue psychotropics from initial note. Cymbalta along with Abilify, Remeron, gabapentin, trazodone, Periactin for appetite stimulation. Assessment: Vital Signs/I&O: Vital Signs Date Time Temp Pulse Resp B/P (MAP) Pulse Ox O2 Delivery O2 Flow Rate FiO2 05/22/21 08:26 94 Room Air 05/22/21 08:17 62 95/59 05/22/21 05:49 97.1 18 2.0 I & O 05/21/21 05/21/21 05/22/21 15:00 23:00 07:00 Intake Total 480 ml 480 ml Balance 480 ml 480 ml Labs: Laboratory Tests Test 05/22/21 07:54 Glucose (Fingerstick) 146 mg/dL (70-99) H Current Medications: Meds: Laboratory Tests Test 05/22/21 07:54 Glucose (Fingerstick) 146 mg/dL Current Medications Medications (Trade) Dose Ordered Sig/Shahid Route PRN Reason Start Time Stop Time Status Last Admin Dose Admin Acetaminophen (Tylenol) 650 mg PRN Q6HRS PRN PO MILD PAIN / TEMP > 100.3'F 05/11/21 23:00 05/12/21 00:35 DC Multi-Ingredient Ointment (Analgesic [place]) 1 rocael PRN QID PRN TP MUSCLE PAIN 05/11/21 23:00 05/16/21 11:06 Al Hydroxide/Mg Hydroxide (Mylanta Plus Xs) 15 ml PRN AFTMEALHC PRN PO DYSPEPSIA 05/11/21 23:00 05/21/21 05:55 Magnesium Hydroxide (Milk Of Magnesia) 2,400 mg PRN QHS PRN PO CONSTIPATION-2ND CHOICE 05/11/21 23:00 Acetaminophen (Tylenol) 1,000 mg PRN Q6HRS PRN PO MILD PAIN 1-3 05/12/21 00:30 05/15/21 17:34 Amlodipine Besylate (Norvasc) 5 mg DAILY PO 05/12/21 09:00 05/22/21 08:17 Aspirin (Aspirin Enteric Coated) 81 mg DAILY PO 05/12/21 09:00 05/22/21 08:13 Atorvastatin Calcium (Lipitor) 20 mg QHS PO 05/12/21 21:00 05/21/21 20:13 Atropine Sulfate (Isopto Atropine) 1 drop DAILY OS 05/12/21 09:00 05/22/21 08:18 Docusate Sodium (Colace) 100 mg PRN BID PRN PO CONSTIPATION-1ST CHOICE 05/12/21 00:30 Furosemide (Lasix) 20 mg DAILY PO 05/12/21 09:00 05/22/21 08:14 Gabapentin (Neurontin) 300 mg TID PO 05/12/21 09:00 05/22/21 08:13 Lisinopril (Prinivil) 5 mg DAILY PO 05/12/21 09:00 05/22/21 08:15 Methocarbamol (Robaxin) 500 mg PRN QHS PRN PO MUSCLE SPASMS 05/12/21 00:30 05/12/21 20:11 Nitroglycerin (Nitrostat) 0.4 mg PRN Q5MIN PRN SL CHEST PAIN 05/12/21 00:30 Sodium Chloride (Gibran-5) 1 drop PRN QID PRN OU dry eye CHOICE #2 05/12/21 00:30 Tamsulosin HCl (Flomax) 0.4 mg DAILY PO 05/12/21 09:00 05/22/21 08:14 Timolol Maleate (Timoptic 0.25% Oph) 1 drop BID OD 05/12/21 09:00 05/22/21 08:17 Artificial Tears (Artificial Tears) 1 drop PRN BID PRN OU DRY EYE CHOICE #1 05/12/21 01:00 Carvedilol (Coreg) 12.5 mg BIDWMEALS PO 05/12/21 08:00 05/22/21 08:17 Cyanocobalamin (Vitamin B-12) 1,000 mcg DAILY PO 05/12/21 09:00 05/22/21 08:15 Levetiracetam (Keppra) 1,500 mg BID PO 05/12/21 09:00 05/22/21 08:13 Pantoprazole Sodium (Protonix) 40 mg DAILYAC PO 05/12/21 07:30 05/22/21 08:16 Dexamethasone (Maxidex) 1 drop QID OS 05/12/21 09:00 05/22/21 08:18 Non-Formulary Medication (Riboflavin (Vitamin B-2)) 100 mg DAILY PO 05/12/21 09:00 05/14/21 07:09 DC Folic Acid (Folic Acid) 1 mg DAILY PO 05/12/21 09:00 05/22/21 08:09 Methylphenidate HCl (Methylphenidate HCl) 5 mg PRN DAILY PRN PO . 05/12/21 00:30 05/12/21 10:56 DC Mirtazapine (Remeron) 60 mg QHS PO 05/12/21 21:00 05/12/21 10:56 DC Trazodone HCl (Desyrel) 150 mg QHS PO 05/12/21 21:00 05/21/21 20:13 Venlafaxine HCl (Effexor Xr) 75 mg DAILY PO 05/12/21 09:00 05/12/21 19:29 DC 05/12/21 08:44 Melatonin (Melatonin) 3 mg PRN QHS PRN PO INSOMNIA 05/12/21 00:45 Potassium Chloride (Klor-Con) 20 meq DAILY PO 05/12/21 09:00 05/22/21 08:16 Mirtazapine (Remeron) 30 mg QHS PO 05/12/21 21:00 05/21/21 20:13 Dextrose (Dextrose 50%-Water Syringe) 12.5 gm PRN Q15MIN PRN IV SEE COMMENTS 05/12/21 13:00 Hydrocortisone (Cortaid) 1 rocael BID TP 05/12/21 21:00 05/22/21 08:17 Duloxetine HCl (Cymbalta) 30 mg DAILY PO 05/13/21 09:00 05/14/21 10:00 DC 05/14/21 08:58 Duloxetine HCl (Cymbalta) 60 mg DAILY PO 05/15/21 09:00 05/22/21 08:14 Cyproheptadine HCl (Periactin) 2 mg HS PO 05/13/21 21:00 05/21/21 20:13 Aripiprazole (Abilify) 5 mg DAILY PO 05/14/21 09:00 05/22/21 08:14 Tramadol HCl (Ultram) 100 mg PRN Q8HRS PRN PO MOD-SEV PAIN 05/16/21 12:45 05/22/21 08:26 I have reviewed the current psychotropics carefully including drug interactions. Risk benefit ratio favors no change other than as noted in my dictated progress note. Diagnosis: Problems: (1) Major depressive disorder (2) Post traumatic stress disorder (3) Anxiety disorder, unspecified (4) Dementia, vascular, with depression (5) Dementia, vascular, with delusions (6) Major neurocognitive disorder MICKY WHEELER MD May 22, 2021 09:38
--- NOTE | 2021-05-22 10:07 | PDOC ---
Exam Note: Henry Note: This note is a late entry for 05/21/2021 covers elements not covered in my initial note. Subjective: The patient was reviewed on telehealth rounds in the afternoon of 05/21/2021 for a treatment team meeting with Shagufta Gonzales, Nasreen Haddad (adult services librarian), Delores, activity therapy and Anita BERMUDEZ, discussed and reviewed the chart. He slept 9 hours previous night. The patient was found on the floor of his bathroom. No injuries noted. He does have UTI. O2 sats were somewhat low. We will defer to Dr. Yee/Dr. Mir. He denies suicidal ideation. He remains somewhat asocial but this may be typical for him. Review of Systems: He is somewhat hard of hearing, little more confusion. A mbulation impaired with walker. No CV, , pulmonary, eye system symptoms on review. Mental Status Exam: The patient is reasonably oriented. Speech has some latency, coherent. Abstraction fair. Computation impaired. Language function intact. Mood and affect withdrawn but subjectively he still states his depression is much improved. Laboratory Data: Reviewed. 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 Anxiety disorder unspecified. UTI. Plan: Continue psychotropics from initial note. Defer management of UTI to Dr. Yee. Make further adjustments as clinically indicated. Addressed this with him on telehealth rounds. Assessment: Vital Signs/I&O: Vital Signs Date Time Temp Pulse Resp B/P (MAP) Pulse Ox O2 Delivery O2 Flow Rate FiO2 05/22/21 08:26 94 Room Air 05/22/21 08:17 62 95/59 05/22/21 05:49 97.1 18 2.0 I & O 05/21/21 05/21/21 05/22/21 15:00 23:00 07:00 Intake Total 480 ml 480 ml Balance 480 ml 480 ml Labs: Laboratory Tests Test 05/22/21 07:54 Glucose (Fingerstick) 146 mg/dL (70-99) H Current Medications: Meds: Laboratory Tests Test 05/22/21 07:54 Glucose (Fingerstick) 146 mg/dL Current Medications Medications (Trade) Dose Ordered Sig/Shahid Route PRN Reason Start Time Stop Time Status Last Admin Dose Admin Acetaminophen (Tylenol) 650 mg PRN Q6HRS PRN PO MILD PAIN / TEMP > 100.3'F 05/11/21 23:00 05/12/21 00:35 DC Multi-Ingredient Ointment (Analgesic [place]) 1 rocael PRN QID PRN TP MUSCLE PAIN 05/11/21 23:00 05/16/21 11:06 Al Hydroxide/Mg Hydroxide (Mylanta Plus Xs) 15 ml PRN AFTMEALHC PRN PO DYSPEPSIA 05/11/21 23:00 05/21/21 05:55 Magnesium Hydroxide (Milk Of Magnesia) 2,400 mg PRN QHS PRN PO CONSTIPATION-2ND CHOICE 05/11/21 23:00 Acetaminophen (Tylenol) 1,000 mg PRN Q6HRS PRN PO MILD PAIN 1-3 05/12/21 00:30 05/15/21 17:34 Amlodipine Besylate (Norvasc) 5 mg DAILY PO 05/12/21 09:00 05/22/21 08:17 Aspirin (Aspirin Enteric Coated) 81 mg DAILY PO 05/12/21 09:00 05/22/21 08:13 Atorvastatin Calcium (Lipitor) 20 mg QHS PO 05/12/21 21:00 05/21/21 20:13 Atropine Sulfate (Isopto Atropine) 1 drop DAILY OS 05/12/21 09:00 05/22/21 08:18 Docusate Sodium (Colace) 100 mg PRN BID PRN PO CONSTIPATION-1ST CHOICE 05/12/21 00:30 Furosemide (Lasix) 20 mg DAILY PO 05/12/21 09:00 05/22/21 08:14 Gabapentin (Neurontin) 300 mg TID PO 05/12/21 09:00 05/22/21 08:13 Lisinopril (Prinivil) 5 mg DAILY PO 05/12/21 09:00 05/22/21 08:15 Methocarbamol (Robaxin) 500 mg PRN QHS PRN PO MUSCLE SPASMS 05/12/21 00:30 05/12/21 20:11 Nitroglycerin (Nitrostat) 0.4 mg PRN Q5MIN PRN SL CHEST PAIN 05/12/21 00:30 Sodium Chloride (Gibran-5) 1 drop PRN QID PRN OU dry eye CHOICE #2 05/12/21 00:30 Tamsulosin HCl (Flomax) 0.4 mg DAILY PO 05/12/21 09:00 05/22/21 08:14 Timolol Maleate (Timoptic 0.25% Ophth) 1 drop BID OD 05/12/21 09:00 05/22/21 08:17 Artificial Tears (Artificial Tears) 1 drop PRN BID PRN OU DRY EYE CHOICE #1 05/12/21 01:00 Carvedilol (Coreg) 12.5 mg BIDWMEALS PO 05/12/21 08:00 05/22/21 08:17 Cyanocobalamin (Vitamin B-12) 1,000 mcg DAILY PO 05/12/21 09:00 05/22/21 08:15 Levetiracetam (Keppra) 1,500 mg BID PO 05/12/21 09:00 05/22/21 08:13 Pantoprazole Sodium (Protonix) 40 mg DAILYAC PO 05/12/21 07:30 05/22/21 08:16 Dexamethasone (Maxidex) 1 drop QID OS 05/12/21 09:00 05/22/21 08:18 Non-Formulary Medication (Riboflavin (Vitamin B-2)) 100 mg DAILY PO 05/12/21 09:00 05/14/21 07:09 DC Folic Acid (Folic Acid) 1 mg DAILY PO 05/12/21 09:00 05/22/21 08:09 Methylphenidate HCl (Methylphenidate HCl) 5 mg PRN DAILY PRN PO . 05/12/21 00:30 05/12/21 10:56 DC Mirtazapine (Remeron) 60 mg QHS PO 05/12/21 21:00 05/12/21 10:56 DC Trazodone HCl (Desyrel) 150 mg QHS PO 05/12/21 21:00 05/21/21 20:13 Venlafaxine HCl (Effexor Xr) 75 mg DAILY PO 05/12/21 09:00 05/12/21 19:29 DC 05/12/21 08:44 Melatonin (Melatonin) 3 mg PRN QHS PRN PO INSOMNIA 05/12/21 00:45 Potassium Chloride (Klor-Con) 20 meq DAILY PO 05/12/21 09:00 05/22/21 08:16 Mirtazapine (Remeron) 30 mg QHS PO 05/12/21 21:00 05/21/21 20:13 Dextrose (Dextrose 50%-Water Syringe) 12.5 gm PRN Q15MIN PRN IV SEE COMMENTS 05/12/21 13:00 Hydrocortisone (Cortaid) 1 rocael BID TP 05/12/21 21:00 05/22/21 08:17 Duloxetine HCl (Cymbalta) 30 mg DAILY PO 05/13/21 09:00 05/14/21 10:00 DC 05/14/21 08:58 Duloxetine HCl (Cymbalta) 60 mg DAILY PO 05/15/21 09:00 05/22/21 08:14 Cyproheptadine HCl (Periactin) 2 mg HS PO 05/13/21 21:00 05/21/21 20:13 Aripiprazole (Abilify) 5 mg DAILY PO 05/14/21 09:00 05/22/21 08:14 Tramadol HCl (Ultram) 100 mg PRN Q8HRS PRN PO MOD-SEV PAIN 05/16/21 12:45 05/22/21 08:26 I have reviewed the current psychotropics carefully including drug interactions. Risk benefit ratio favors no change other than as noted in my dictated progress note. Diagnosis: Problems: (1) UTI (urinary tract infection) (2) Major depressive disorder (3) Post traumatic stress disorder (4) Anxiety disorder, unspecified (5) Dementia, vascular, with depression (6) Dementia, vascular, with delusions (7) Major neurocognitive disorder (8) History of electroconvulsive therapy MICKY WHEELER MD May 22, 2021 10:07
--- NOTE | 2021-05-22 14:24 | NUR ---
Nursing Note: Pt withdrawn to room except at meal times. He is medication compliant. Pt. has more complaints of neuropathy pain today than usual. He asked several EMAIL PRODUCTION SPECIALIST's and nurses if he received his Gabapentin this morning, because he felt like he had not. Nursing reassured him that it had been administered. Pt was also given Tramadol for pain, but he still had complaints throughout the morning. Later in the afternoon pt. seemed less worried about the pain, but continued to be withdrawn to his room and himself.
[2021-05-22 16:00] VITALS: BP 99/63
[2021-05-22] MEDS: traZODone 50 MG TABLET. PO SCH (20:37)
[2021-05-22] MEDS: ATORVASTATIN CALCIUM 20 MG TABLET PO SCH (20:37)
[2021-05-22] MEDS: MIRTAZAPINE 30 MG TABLET PO SCH (20:38)
[2021-05-22] MEDS: CYPROHEPTADINE 4 MG TABLET. PO SCH (20:39)
--- NOTE | 2021-05-22 22:06 | PDOC ---
Exam Note: Henry Note: Please also refer to the separate dictated note~for this date of service dictated separately.~Patient seen individually. Discussed the patient with Nursing staff reviewed the chart.~Reviewed interim history and current functioning. Reviewed vital signs,~Labs/ Radiology~and current medications noted below. Continue current treatment with the changes noted in the dictated addendum note Assessment: Vital Signs/I&O: Vital Signs Date Time Temp Pulse Resp B/P (MAP) Pulse Ox O2 Delivery O2 Flow Rate FiO2 05/22/21 21:08 94 05/22/21 17:15 63 99/63 05/22/21 16:00 97.9 20 05/22/21 09:15 Room Air 05/22/21 05:49 2.0 I & O 05/21/21 05/21/21 05/22/21 15:00 23:00 07:00 Intake Total 480 ml 480 ml Balance 480 ml 480 ml Labs: Laboratory Tests Test 05/22/21 07:54 Glucose (Fingerstick) 146 mg/dL (70-99) H Current Medications: Meds: Laboratory Tests Test 05/22/21 07:54 Glucose (Fingerstick) 146 mg/dL Current Medications Medications (Trade) Dose Ordered Sig/Shahid Route PRN Reason Start Time Stop Time Status Last Admin Dose Admin Acetaminophen (Tylenol) 650 mg PRN Q6HRS PRN PO MILD PAIN / TEMP > 100.3'F 05/11/21 23:00 05/12/21 00:35 DC Multi-Ingredient Ointment (Analgesic [place]) 1 rocael PRN QID PRN TP MUSCLE PAIN 05/11/21 23:00 05/16/21 11:06 Al Hydroxide/Mg Hydroxide (Mylanta Plus Xs) 15 ml PRN AFTMEALHC PRN PO DYSPEPSIA 05/11/21 23:00 05/21/21 05:55 Magnesium Hydroxide (Milk Of Magnesia) 2,400 mg PRN QHS PRN PO CONSTIPATION-2ND CHOICE 05/11/21 23:00 Acetaminophen (Tylenol) 1,000 mg PRN Q6HRS PRN PO MILD PAIN 1-3 05/12/21 00:30 05/15/21 17:34 Amlodipine Besylate (Norvasc) 5 mg DAILY PO 05/12/21 09:00 05/22/21 08:17 Aspirin (Aspirin Enteric Coated) 81 mg DAILY PO 05/12/21 09:00 05/22/21 08:13 Atorvastatin Calcium (Lipitor) 20 mg QHS PO 05/12/21 21:00 05/22/21 20:37 Atropine Sulfate (Isopto Atropine) 1 drop DAILY OS 05/12/21 09:00 05/22/21 08:18 Docusate Sodium (Colace) 100 mg PRN BID PRN PO CONSTIPATION-1ST CHOICE 05/12/21 00:30 Furosemide (Lasix) 20 mg DAILY PO 05/12/21 09:00 05/22/21 08:14 Gabapentin (Neurontin) 300 mg TID PO 05/12/21 09:00 05/22/21 20:38 Lisinopril (Prinivil) 5 mg DAILY PO 05/12/21 09:00 05/22/21 08:15 Methocarbamol (Robaxin) 500 mg PRN QHS PRN PO MUSCLE SPASMS 05/12/21 00:30 05/12/21 20:11 Nitroglycerin (Nitrostat) 0.4 mg PRN Q5MIN PRN SL CHEST PAIN 05/12/21 00:30 Sodium Chloride (Gibran-5) 1 drop PRN QID PRN OU dry eye CHOICE #2 05/12/21 00:30 Tamsulosin HCl (Flomax) 0.4 mg DAILY PO 05/12/21 09:00 05/22/21 08:14 Timolol Maleate (Timoptic 0.25% Ophth) 1 drop BID OD 05/12/21 09:00 05/22/21 20:37 Artificial Tears (Artificial Tears) 1 drop PRN BID PRN OU DRY EYE CHOICE #1 05/12/21 01:00 Carvedilol (Coreg) 12.5 mg BIDWMEALS PO 05/12/21 08:00 05/22/21 17:15 Cyanocobalamin (Vitamin B-12) 1,000 mcg DAILY PO 05/12/21 09:00 05/22/21 08:15 Levetiracetam (Keppra) 1,500 mg BID PO 05/12/21 09:00 05/22/21 20:38 Pantoprazole Sodium (Protonix) 40 mg DAILYAC PO 05/12/21 07:30 05/22/21 08:16 Dexamethasone (Maxidex) 1 drop QID OS 05/12/21 09:00 05/22/21 20:37 Non-Formulary Medication (Riboflavin (Vitamin B-2)) 100 mg DAILY PO 05/12/21 09:00 05/14/21 07:09 DC Folic Acid (Folic Acid) 1 mg DAILY PO 05/12/21 09:00 05/22/21 08:09 Methylphenidate HCl (Methylphenidate HCl) 5 mg PRN DAILY PRN PO . 05/12/21 00:30 05/12/21 10:56 DC Mirtazapine (Remeron) 60 mg QHS PO 05/12/21 21:00 05/12/21 10:56 DC Trazodone HCl (Desyrel) 150 mg QHS PO 05/12/21 21:00 05/22/21 20:37 Venlafaxine HCl (Effexor Xr) 75 mg DAILY PO 05/12/21 09:00 05/12/21 19:29 DC 05/12/21 08:44 Melatonin (Melatonin) 3 mg PRN QHS PRN PO INSOMNIA 05/12/21 00:45 Potassium Chloride (Klor-Con) 20 meq DAILY PO 05/12/21 09:00 05/22/21 08:16 Mirtazapine (Remeron) 30 mg QHS PO 05/12/21 21:00 05/22/21 20:38 Dextrose (Dextrose 50%-Water Syringe) 12.5 gm PRN Q15MIN PRN IV SEE COMMENTS 05/12/21 13:00 Hydrocortisone (Cortaid) 1 rocael BID TP 05/12/21 21:00 05/22/21 20:37 Duloxetine HCl (Cymbalta) 30 mg DAILY PO 05/13/21 09:00 05/14/21 10:00 DC 05/14/21 08:58 Duloxetine HCl (Cymbalta) 60 mg DAILY PO 05/15/21 09:00 05/22/21 08:14 Cyproheptadine HCl (Periactin) 2 mg HS PO 05/13/21 21:00 05/22/21 20:39 Aripiprazole (Abilify) 5 mg DAILY PO 05/14/21 09:00 05/22/21 08:14 Tramadol HCl (Ultram) 100 mg PRN Q8HRS PRN PO MOD-SEV PAIN 05/16/21 12:45 05/22/21 20:38 I have reviewed the current psychotropics carefully including drug interactions. Risk benefit ratio favors no change other than as noted in my dictated progress note. Diagnosis: Problems: (1) Major depressive disorder (2) Post traumatic stress disorder (3) Anxiety disorder, unspecified (4) Dementia, vascular, with depression (5) Dementia, vascular, with delusions (6) Major neurocognitive disorder (7) UTI (urinary tract infection) MICKY WHEELER MD May 22, 2021 22:06
--- NOTE | 2021-05-22 23:22 | NUR ---
Pt withdrawn to room, lying in bed when approached. Pt calm with a flat, depressed affect. Pt cooperative with assessment and compliant with medications administered whole. Pt denies SI at this time, reporting "I just want to go home".
[2021-05-23 05:47] VITALS: BP 108/65
[2021-05-23] MEDS: TIMOLOL 0.25% OPHTH SOLUTION 5ML BOTTLE. OD SCH ×2 (08:15→20:29)
[2021-05-23] MEDS: DEXAMETHASONE 0.1% OPHTH SOLUTION 5ML BOTTLE. OS SCH ×4 (08:15→20:25)
[2021-05-23] MEDS: ATROPINE 1% OPHTH SOLUTION 5ML BOTTLE. OS SCH (08:15)
[2021-05-23] MEDS: PANTOPRAZOLE 40 MG TABLET. PO SCH (08:16)
[2021-05-23] MEDS: CYANOCOBALAMIN (VITAMIN B-12) 1,000 MCG TABLET. PO SCH (08:16)
[2021-05-23] MEDS: HYDROCORTISONE 1% TOPICAL OINTMENT 30GM TUBE. TP SCH ×2 (08:16→20:29)
[2021-05-23] MEDS: levETIRAcetam 500 MG TABLET PO SCH ×2 (08:16→20:26)
[2021-05-23] MEDS: DULoxetine HCL 60 MG CAPSULE.DR PO SCH (08:16)
[2021-05-23] MEDS: ARIPiprazole 5 MG TABLET PO SCH (08:16)
[2021-05-23] MEDS: GABAPENTIN 300 MG CAPSULE. PO SCH ×2 (08:16→14:22)
[2021-05-23] MEDS: POTASSIUM CHLORIDE 20 MEQ TABLET.ER. PO SCH (08:17)
[2021-05-23] MEDS: FOLIC ACID 1 MG TABLET PO SCH (08:17)
[2021-05-23] MEDS: amLODIPine BESYLATE 5 MG TABLET PO SCH (08:17)
[2021-05-23] MEDS: CARVEDILOL 12.5 MG TABLET PO SCH ×2 (08:17→17:16)
[2021-05-23] MEDS: ASPIRIN ENTERIC COATED 81 MG TABLET.DR. PO SCH (08:18)
[2021-05-23] MEDS: FUROSEMIDE 20 MG TABLET PO SCH (08:18)
[2021-05-23] MEDS: TAMSULOSIN 0.4 MG CAP.ER.24H. PO SCH (08:18)
[2021-05-23] MEDS: LISINOPRIL 5 MG TABLET. PO SCH (08:18)
[2021-05-23] MEDS: traMADol 50 MG TABLET PO PRN ×2 (08:25→20:27)
[2021-05-23] MEDS: METHOCARBAMOL 500 MG TABLET PO PRN (10:29)
[2021-05-23 16:10] VITALS: BP 104/52
[2021-05-23] MEDS: ATORVASTATIN CALCIUM 20 MG TABLET PO SCH (20:25)
[2021-05-23] MEDS: MIRTAZAPINE 30 MG TABLET PO SCH (20:26)
[2021-05-23] MEDS: GABAPENTIN 400 MG CAPSULE. PO SCH (20:26)
[2021-05-23] MEDS: traZODone 50 MG TABLET. PO SCH (20:26)
[2021-05-23] MEDS: CYPROHEPTADINE 4 MG TABLET. PO SCH (20:27)
--- NOTE | 2021-05-23 22:43 | PDOC ---
Exam Note: Henry Note: Please also refer to the separate dictated note~for this date of service dictated separately.~Patient seen individually. Discussed the patient with Nursing staff reviewed the chart.~Reviewed interim history and current functioning. Reviewed vital signs,~Labs/ Radiology~and current medications noted below. Continue current treatment with the changes noted in the dictated addendum note Assessment: Vital Signs/I&O: Vital Signs Date Time Temp Pulse Resp B/P (MAP) Pulse Ox O2 Delivery O2 Flow Rate FiO2 05/23/21 20:57 93 05/23/21 17:16 73 104/52 05/23/21 16:10 97.0 20 Room Air 2.0 I & O 05/22/21 05/22/21 05/23/21 14:59 22:59 06:59 Intake Total 600 ml 600 ml Balance 600 ml 600 ml Labs: Laboratory Tests Test 05/23/21 07:45 Glucose (Fingerstick) 133 mg/dL (70-99) H Current Medications: Meds: Laboratory Tests Test 05/23/21 07:45 Glucose (Fingerstick) 133 mg/dL Current Medications Medications (Trade) Dose Ordered Sig/Shahid Route PRN Reason Start Time Stop Time Status Last Admin Dose Admin Acetaminophen (Tylenol) 650 mg PRN Q6HRS PRN PO MILD PAIN / TEMP > 100.3'F 05/11/21 23:00 05/12/21 00:35 DC Multi-Ingredient Ointment (Analgesic [place]) 1 rocael PRN QID PRN TP MUSCLE PAIN 05/11/21 23:00 05/16/21 11:06 Al Hydroxide/Mg Hydroxide (Mylanta Plus Xs) 15 ml PRN AFTMEALHC PRN PO DYSPEPSIA 05/11/21 23:00 05/21/21 05:55 Magnesium Hydroxide (Milk Of Magnesia) 2,400 mg PRN QHS PRN PO CONSTIPATION-2ND CHOICE 05/11/21 23:00 Acetaminophen (Tylenol) 1,000 mg PRN Q6HRS PRN PO MILD PAIN 1-3 05/12/21 00:30 05/15/21 17:34 Amlodipine Besylate (Norvasc) 5 mg DAILY PO 05/12/21 09:00 05/23/21 08:17 Aspirin (Aspirin Enteric Coated) 81 mg DAILY PO 05/12/21 09:00 05/23/21 08:18 Atorvastatin Calcium (Lipitor) 20 mg QHS PO 05/12/21 21:00 05/23/21 20:25 Atropine Sulfate (Isopto Atropine) 1 drop DAILY OS 05/12/21 09:00 05/23/21 08:15 Docusate Sodium (Colace) 100 mg PRN BID PRN PO CONSTIPATION-1ST CHOICE 05/12/21 00:30 Furosemide (Lasix) 20 mg DAILY PO 05/12/21 09:00 05/23/21 08:18 Gabapentin (Neurontin) 300 mg TID PO 05/12/21 09:00 05/23/21 17:07 DC 05/23/21 14:22 Lisinopril (Prinivil) 5 mg DAILY PO 05/12/21 09:00 05/23/21 08:18 Methocarbamol (Robaxin) 500 mg PRN QHS PRN PO MUSCLE SPASMS 05/12/21 00:30 05/23/21 10:29 Nitroglycerin (Nitrostat) 0.4 mg PRN Q5MIN PRN SL CHEST PAIN 05/12/21 00:30 Sodium Chloride (Gibran-5) 1 drop PRN QID PRN OU dry eye CHOICE #2 05/12/21 00:30 Tamsulosin HCl (Flomax) 0.4 mg DAILY PO 05/12/21 09:00 05/23/21 08:18 Timolol Maleate (Timoptic 0.25% Ophth) 1 drop BID OD 05/12/21 09:00 05/23/21 20:29 Artificial Tears (Artificial Tears) 1 drop PRN BID PRN OU DRY EYE CHOICE #1 05/12/21 01:00 Carvedilol (Coreg) 12.5 mg BIDWMEALS PO 05/12/21 08:00 05/23/21 17:16 Cyanocobalamin (Vitamin B-12) 1,000 mcg DAILY PO 05/12/21 09:00 05/23/21 08:16 Levetiracetam (Keppra) 1,500 mg BID PO 05/12/21 09:00 05/23/21 20:26 Pantoprazole Sodium (Protonix) 40 mg DAILYAC PO 05/12/21 07:30 05/23/21 08:16 Dexamethasone (Maxidex) 1 drop QID OS 05/12/21 09:00 05/23/21 20:25 Non-Formulary Medication (Riboflavin (Vitamin B-2)) 100 mg DAILY PO 05/12/21 09:00 05/14/21 07:09 DC Folic Acid (Folic Acid) 1 mg DAILY PO 05/12/21 09:00 05/23/21 08:17 Methylphenidate HCl (Methylphenidate HCl) 5 mg PRN DAILY PRN PO . 05/12/21 00:30 05/12/21 10:56 DC Mirtazapine (Remeron) 60 mg QHS PO 05/12/21 21:00 05/12/21 10:56 DC Trazodone HCl (Desyrel) 150 mg QHS PO 05/12/21 21:00 05/23/21 20:26 Venlafaxine HCl (Effexor Xr) 75 mg DAILY PO 05/12/21 09:00 05/12/21 19:29 DC 05/12/21 08:44 Melatonin (Melatonin) 3 mg PRN QHS PRN PO INSOMNIA 05/12/21 00:45 Potassium Chloride (Klor-Con) 20 meq DAILY PO 05/12/21 09:00 05/23/21 08:17 Mirtazapine (Remeron) 30 mg QHS PO 05/12/21 21:00 05/23/21 20:26 Dextrose (Dextrose 50%-Water Syringe) 12.5 gm PRN Q15MIN PRN IV SEE COMMENTS 05/12/21 13:00 Hydrocortisone (Cortaid) 1 rocael BID TP 05/12/21 21:00 05/23/21 20:29 Duloxetine HCl (Cymbalta) 30 mg DAILY PO 05/13/21 09:00 05/14/21 10:00 DC 05/14/21 08:58 Duloxetine HCl (Cymbalta) 60 mg DAILY PO 05/15/21 09:00 05/23/21 08:16 Cyproheptadine HCl (Periactin) 2 mg HS PO 05/13/21 21:00 05/23/21 20:27 Aripiprazole (Abilify) 5 mg DAILY PO 05/14/21 09:00 05/23/21 08:16 Tramadol HCl (Ultram) 100 mg PRN Q8HRS PRN PO MOD-SEV PAIN 05/16/21 12:45 05/23/21 20:27 Gabapentin (Neurontin) 400 mg TID PO 05/23/21 21:00 05/23/21 20:26 Current Medications Medications (Trade) Dose Ordered Sig/Shahid Route PRN Reason Start Time Stop Time Status Last Admin Dose Admin Gabapentin (Neurontin) 400 mg TID PO 05/23/21 21:00 05/23/21 20:26 I have reviewed the current psychotropics carefully including drug interactions. Risk benefit ratio favors no change other than as noted in my dictated progress note. Diagnosis: Problems: (1) Major depressive disorder (2) Post traumatic stress disorder (3) Anxiety disorder, unspecified (4) Dementia, vascular, with depression (5) Dementia, vascular, with delusions (6) Major neurocognitive disorder MICKY WHEELER MD May 23, 2021 22:43
--- NOTE | 2021-05-23 22:45 | NUR ---
Pt withdrawn to his room, lying in bed when approached. Pt calm, pleasant, and more interactive during encounter this evening. Pt cooperative with assessment and compliant with medications administered whole. Pt denies SI at this time.
[2021-05-24 06:11] VITALS: BP 127/76
[2021-05-24] MEDS: TIMOLOL 0.25% OPHTH SOLUTION 5ML BOTTLE. OD SCH ×2 (08:16→21:32)
[2021-05-24] MEDS: HYDROCORTISONE 1% TOPICAL OINTMENT 30GM TUBE. TP SCH ×2 (08:16→21:32)
[2021-05-24] MEDS: DEXAMETHASONE 0.1% OPHTH SOLUTION 5ML BOTTLE. OS SCH ×4 (08:16→21:30)
[2021-05-24] MEDS: ATROPINE 1% OPHTH SOLUTION 5ML BOTTLE. OS SCH (08:16)
[2021-05-24] MEDS: CYANOCOBALAMIN (VITAMIN B-12) 1,000 MCG TABLET. PO SCH (08:17)
[2021-05-24] MEDS: levETIRAcetam 500 MG TABLET PO SCH ×2 (08:17→21:30)
[2021-05-24] MEDS: FUROSEMIDE 20 MG TABLET PO SCH (08:18)
[2021-05-24] MEDS: PANTOPRAZOLE 40 MG TABLET. PO SCH (08:18)
[2021-05-24] MEDS: TAMSULOSIN 0.4 MG CAP.ER.24H. PO SCH (08:18)
[2021-05-24] MEDS: FOLIC ACID 1 MG TABLET PO SCH (08:18)
[2021-05-24] MEDS: POTASSIUM CHLORIDE 20 MEQ TABLET.ER. PO SCH (08:18)
[2021-05-24] MEDS: ARIPiprazole 5 MG TABLET PO SCH (08:18)
[2021-05-24] MEDS: LISINOPRIL 5 MG TABLET. PO SCH (08:19)
[2021-05-24] MEDS: GABAPENTIN 400 MG CAPSULE. PO SCH ×3 (08:19→21:31)
[2021-05-24] MEDS: DULoxetine HCL 60 MG CAPSULE.DR PO SCH (08:19)
[2021-05-24] MEDS: CARVEDILOL 12.5 MG TABLET PO SCH ×2 (08:19→17:12)
[2021-05-24] MEDS: amLODIPine BESYLATE 5 MG TABLET PO SCH (08:19)
[2021-05-24] MEDS: ASPIRIN ENTERIC COATED 81 MG TABLET.DR. PO SCH (08:20)
[2021-05-24] MEDS: traMADol 50 MG TABLET PO PRN ×2 (08:25→21:31)
--- NOTE | 2021-05-24 09:13 | PDOC ---
Exam Note: Henry Note: This note is a late entry for 05/22/2021 covers elements not covered in my initial note. Subjective: The patient was seen on telehealth rounds in the afternoon of 05/22/2021 with the nursing staff taking the telehealth camera to each patient, which was on a secure portal, discussed and reviewed the chart with Mary BERMUDEZ. He slept 8-1/2 hours previous night. No behaviors noted. The patient spends much time in his room. He believes gabapentin is not helping with his nerve pain. We will defer to Dr. Mir. He states depression is much better. Denies suicidal ideation. Review of Systems: Positive for chronic pain which is improved. No CV, , pulmonary, eye system symptoms on review. He does complain of some tiredness. Mental Status Exam: The patient is alert, oriented, quite verbal, appropriate. Speech coherent. Abstraction fair. Computation impaired. Language function intact. Attention span fair. Mood and affect is much improved. Denies suicidal ideation. Laboratory Data: Reviewed. 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 Anxiety disorder unspecified. UTI. Plan: Continue psychotropics from initial note. We discussed discharge plans returning back home with his grandson. He is quite accepting of it. Outpatient follow up will be at the [facility] which the patient prefers and I addressed with him. Assessment: Vital Signs/I&O: Vital Signs Date Time Temp Pulse Resp B/P (MAP) Pulse Ox O2 Delivery O2 Flow Rate FiO2 05/24/21 08:25 18 95 Room Air 05/24/21 08:19 71 127/76 05/24/21 06:11 97.3 2.0 I & O 05/23/21 05/23/21 05/24/21 15:00 23:00 07:00 Intake Total 480 ml 360 ml Balance 480 ml 360 ml Labs: Laboratory Tests Test 05/24/21 08:06 Glucose (Fingerstick) 133 mg/dL (70-99) H Current Medications: Meds: Laboratory Tests Test 05/24/21 08:06 Glucose (Fingerstick) 133 mg/dL Current Medications Medications (Trade) Dose Ordered Sig/Shahid Route PRN Reason Start Time Stop Time Status Last Admin Dose Admin Acetaminophen (Tylenol) 650 mg PRN Q6HRS PRN PO MILD PAIN / TEMP > 100.3'F 05/11/21 23:00 05/12/21 00:35 DC Multi-Ingredient Ointment (Analgesic [place]) 1 rocael PRN QID PRN TP MUSCLE PAIN 05/11/21 23:00 05/16/21 11:06 Al Hydroxide/Mg Hydroxide (Mylanta Plus Xs) 15 ml PRN AFTMEALHC PRN PO DYSPEPSIA 05/11/21 23:00 05/21/21 05:55 Magnesium Hydroxide (Milk Of Magnesia) 2,400 mg PRN QHS PRN PO CONSTIPATION-2ND CHOICE 05/11/21 23:00 Acetaminophen (Tylenol) 1,000 mg PRN Q6HRS PRN PO MILD PAIN 1-3 05/12/21 00:30 05/15/21 17:34 Amlodipine Besylate (Norvasc) 5 mg DAILY PO 05/12/21 09:00 05/24/21 08:19 Aspirin (Aspirin Enteric Coated) 81 mg DAILY PO 05/12/21 09:00 05/24/21 08:20 Atorvastatin Calcium (Lipitor) 20 mg QHS PO 05/12/21 21:00 05/23/21 20:25 Atropine Sulfate (Isopto Atropine) 1 drop DAILY OS 05/12/21 09:00 05/24/21 08:16 Docusate Sodium (Colace) 100 mg PRN BID PRN PO CONSTIPATION-1ST CHOICE 05/12/21 00:30 Furosemide (Lasix) 20 mg DAILY PO 05/12/21 09:00 05/24/21 08:18 Gabapentin (Neurontin) 300 mg TID PO 05/12/21 09:00 05/23/21 17:07 DC 05/23/21 14:22 Lisinopril (Prinivil) 5 mg DAILY PO 05/12/21 09:00 05/24/21 08:19 Methocarbamol (Robaxin) 500 mg PRN QHS PRN PO MUSCLE SPASMS 05/12/21 00:30 05/23/21 10:29 Nitroglycerin (Nitrostat) 0.4 mg PRN Q5MIN PRN SL CHEST PAIN 05/12/21 00:30 Sodium Chloride (Gibran-5) 1 drop PRN QID PRN OU dry eye CHOICE #2 05/12/21 00:30 Tamsulosin HCl (Flomax) 0.4 mg DAILY PO 05/12/21 09:00 05/24/21 08:18 Timolol Maleate (Timoptic 0.25% Ophth) 1 drop BID OD 05/12/21 09:00 05/24/21 08:16 Artificial Tears (Artificial Tears) 1 drop PRN BID PRN OU DRY EYE CHOICE #1 05/12/21 01:00 Carvedilol (Coreg) 12.5 mg BIDWMEALS PO 05/12/21 08:00 05/24/21 08:19 Cyanocobalamin (Vitamin B-12) 1,000 mcg DAILY PO 05/12/21 09:00 05/24/21 08:17 Levetiracetam (Keppra) 1,500 mg BID PO 05/12/21 09:00 05/24/21 08:17 Pantoprazole Sodium (Protonix) 40 mg DAILYAC PO 05/12/21 07:30 05/24/21 08:18 Dexamethasone (Maxidex) 1 drop QID OS 05/12/21 09:00 05/24/21 08:16 Non-Formulary Medication (Riboflavin (Vitamin B-2)) 100 mg DAILY PO 05/12/21 09:00 05/14/21 07:09 DC Folic Acid (Folic Acid) 1 mg DAILY PO 05/12/21 09:00 05/24/21 08:18 Methylphenidate HCl (Methylphenidate HCl) 5 mg PRN DAILY PRN PO . 05/12/21 00:30 05/12/21 10:56 DC Mirtazapine (Remeron) 60 mg QHS PO 05/12/21 21:00 05/12/21 10:56 DC Trazodone HCl (Desyrel) 150 mg QHS PO 05/12/21 21:00 05/23/21 20:26 Venlafaxine HCl (Effexor Xr) 75 mg DAILY PO 05/12/21 09:00 05/12/21 19:29 DC 05/12/21 08:44 Melatonin (Melatonin) 3 mg PRN QHS PRN PO INSOMNIA 05/12/21 00:45 Potassium Chloride (Klor-Con) 20 meq DAILY PO 05/12/21 09:00 05/24/21 08:18 Mirtazapine (Remeron) 30 mg QHS PO 05/12/21 21:00 05/23/21 20:26 Dextrose (Dextrose 50%-Water Syringe) 12.5 gm PRN Q15MIN PRN IV SEE COMMENTS 05/12/21 13:00 Hydrocortisone (Cortaid) 1 rocael BID TP 05/12/21 21:00 05/24/21 08:16 Duloxetine HCl (Cymbalta) 30 mg DAILY PO 05/13/21 09:00 05/14/21 10:00 DC 05/14/21 08:58 Duloxetine HCl (Cymbalta) 60 mg DAILY PO 05/15/21 09:00 05/24/21 08:19 Cyproheptadine HCl (Periactin) 2 mg HS PO 05/13/21 21:00 05/23/21 20:27 Aripiprazole (Abilify) 5 mg DAILY PO 05/14/21 09:00 05/24/21 08:18 Tramadol HCl (Ultram) 100 mg PRN Q8HRS PRN PO MOD-SEV PAIN 05/16/21 12:45 05/24/21 08:25 Gabapentin (Neurontin) 400 mg TID PO 05/23/21 21:00 05/24/21 08:19 Current Medications Medications (Trade) Dose Ordered Sig/Shahid Route PRN Reason Start Time Stop Time Status Last Admin Dose Admin Gabapentin (Neurontin) 400 mg TID PO 05/23/21 21:00 05/24/21 08:19 I have reviewed the current psychotropics carefully including drug interactions. Risk benefit ratio favors no change other than as noted in my dictated progress note. Diagnosis: Problems: (1) Major depressive disorder (2) Post traumatic stress disorder (3) Anxiety disorder, unspecified (4) Dementia, vascular, with depression (5) Dementia, vascular, with delusions (6) Major neurocognitive disorder MICKY WHEELER MD May 24, 2021 09:13
[2021-05-24 16:28] VITALS: BP 114/57
--- NOTE | 2021-05-24 18:42 | NUR ---
Nursing Note: Pt has been calm, cooperative, and medication compliant. Pt stated that he feels that increase in Gabapentin yesterday has been helping the neuropathy pain. He was still having shoulder and back pain in the morning and was given PRN Tramadol in the AM. Pt. went back to sleep and rested in his room after breakfast and then joined the pts. in the day room in the afternoon and visited with others.
[2021-05-24] MEDS: ATORVASTATIN CALCIUM 20 MG TABLET PO SCH (21:30)
[2021-05-24] MEDS: traZODone 50 MG TABLET. PO SCH (21:30)
[2021-05-24] MEDS: MIRTAZAPINE 30 MG TABLET PO SCH (21:31)
[2021-05-24] MEDS: CYPROHEPTADINE 4 MG TABLET. PO SCH (21:32)
--- NOTE | 2021-05-24 22:06 | PDOC ---
Exam Note: Henry Note: Please also refer to the separate dictated note~for this date of service dictated separately.~Patient seen individually. Discussed the patient with Nursing staff reviewed the chart.~Reviewed interim history and current functioning. Reviewed vital signs,~Labs/ Radiology~and current medications noted below. Continue current treatment with the changes noted in the dictated addendum note Assessment: Vital Signs/I&O: Vital Signs Date Time Temp Pulse Resp B/P (MAP) Pulse Ox O2 Delivery O2 Flow Rate FiO2 05/24/21 21:31 94 05/24/21 17:12 60 114/57 05/24/21 16:28 97.4 18 Room Air 05/24/21 06:11 2.0 I & O 05/23/21 05/23/21 05/24/21 15:00 23:00 07:00 Intake Total 480 ml 360 ml Balance 480 ml 360 ml Labs: Laboratory Tests Test 05/24/21 08:06 Glucose (Fingerstick) 133 mg/dL (70-99) H Current Medications: Meds: Laboratory Tests Test 05/24/21 08:06 Glucose (Fingerstick) 133 mg/dL Current Medications Medications (Trade) Dose Ordered Sig/Shahid Route PRN Reason Start Time Stop Time Status Last Admin Dose Admin Acetaminophen (Tylenol) 650 mg PRN Q6HRS PRN PO MILD PAIN / TEMP > 100.3'F 05/11/21 23:00 05/12/21 00:35 DC Multi-Ingredient Ointment (Analgesic [place]) 1 rocael PRN QID PRN TP MUSCLE PAIN 05/11/21 23:00 05/16/21 11:06 Al Hydroxide/Mg Hydroxide (Mylanta Plus Xs) 15 ml PRN AFTMEALHC PRN PO DYSPEPSIA 05/11/21 23:00 05/21/21 05:55 Magnesium Hydroxide (Milk Of Magnesia) 2,400 mg PRN QHS PRN PO CONSTIPATION-2ND CHOICE 05/11/21 23:00 Acetaminophen (Tylenol) 1,000 mg PRN Q6HRS PRN PO MILD PAIN 1-3 05/12/21 00:30 05/15/21 17:34 Amlodipine Besylate (Norvasc) 5 mg DAILY PO 05/12/21 09:00 05/24/21 08:19 Aspirin (Aspirin Enteric Coated) 81 mg DAILY PO 05/12/21 09:00 05/24/21 08:20 Atorvastatin Calcium (Lipitor) 20 mg QHS PO 05/12/21 21:00 05/24/21 21:30 Atropine Sulfate (Isopto Atropine) 1 drop DAILY OS 05/12/21 09:00 05/24/21 08:16 Docusate Sodium (Colace) 100 mg PRN BID PRN PO CONSTIPATION-1ST CHOICE 05/12/21 00:30 Furosemide (Lasix) 20 mg DAILY PO 05/12/21 09:00 05/24/21 08:18 Gabapentin (Neurontin) 300 mg TID PO 05/12/21 09:00 05/23/21 17:07 DC 05/23/21 14:22 Lisinopril (Prinivil) 5 mg DAILY PO 05/12/21 09:00 05/24/21 08:19 Methocarbamol (Robaxin) 500 mg PRN QHS PRN PO MUSCLE SPASMS 05/12/21 00:30 05/23/21 10:29 Nitroglycerin (Nitrostat) 0.4 mg PRN Q5MIN PRN SL CHEST PAIN 05/12/21 00:30 Sodium Chloride (Gibran-5) 1 drop PRN QID PRN OU dry eye CHOICE #2 05/12/21 00:30 Tamsulosin HCl (Flomax) 0.4 mg DAILY PO 05/12/21 09:00 05/24/21 08:18 Timolol Maleate (Timoptic 0.25% Ophth) 1 drop BID OD 05/12/21 09:00 05/24/21 21:32 Artificial Tears (Artificial Tears) 1 drop PRN BID PRN OU DRY EYE CHOICE #1 05/12/21 01:00 Carvedilol (Coreg) 12.5 mg BIDWMEALS PO 05/12/21 08:00 05/24/21 17:12 Cyanocobalamin (Vitamin B-12) 1,000 mcg DAILY PO 05/12/21 09:00 05/24/21 08:17 Levetiracetam (Keppra) 1,500 mg BID PO 05/12/21 09:00 05/24/21 21:30 Pantoprazole Sodium (Protonix) 40 mg DAILYAC PO 05/12/21 07:30 05/24/21 08:18 Dexamethasone (Maxidex) 1 drop QID OS 05/12/21 09:00 05/24/21 21:30 Non-Formulary Medication (Riboflavin (Vitamin B-2)) 100 mg DAILY PO 05/12/21 09:00 05/14/21 07:09 DC Folic Acid (Folic Acid) 1 mg DAILY PO 05/12/21 09:00 05/24/21 08:18 Methylphenidate HCl (Methylphenidate HCl) 5 mg PRN DAILY PRN PO . 05/12/21 00:30 05/12/21 10:56 DC Mirtazapine (Remeron) 60 mg QHS PO 05/12/21 21:00 05/12/21 10:56 DC Trazodone HCl (Desyrel) 150 mg QHS PO 05/12/21 21:00 05/24/21 21:30 Venlafaxine HCl (Effexor Xr) 75 mg DAILY PO 05/12/21 09:00 05/12/21 19:29 DC 05/12/21 08:44 Melatonin (Melatonin) 3 mg PRN QHS PRN PO INSOMNIA 05/12/21 00:45 Potassium Chloride (Klor-Con) 20 meq DAILY PO 05/12/21 09:00 05/24/21 08:18 Mirtazapine (Remeron) 30 mg QHS PO 05/12/21 21:00 05/24/21 21:31 Dextrose (Dextrose 50%-Water Syringe) 12.5 gm PRN Q15MIN PRN IV SEE COMMENTS 05/12/21 13:00 Hydrocortisone (Cortaid) 1 rocael BID TP 05/12/21 21:00 05/24/21 21:32 Duloxetine HCl (Cymbalta) 30 mg DAILY PO 05/13/21 09:00 05/14/21 10:00 DC 05/14/21 08:58 Duloxetine HCl (Cymbalta) 60 mg DAILY PO 05/15/21 09:00 05/24/21 08:19 Cyproheptadine HCl (Periactin) 2 mg HS PO 05/13/21 21:00 05/24/21 21:32 Aripiprazole (Abilify) 5 mg DAILY PO 05/14/21 09:00 05/24/21 08:18 Tramadol HCl (Ultram) 100 mg PRN Q8HRS PRN PO MOD-SEV PAIN 05/16/21 12:45 05/24/21 21:31 Gabapentin (Neurontin) 400 mg TID PO 05/23/21 21:00 05/24/21 21:31 I have reviewed the current psychotropics carefully including drug interactions. Risk benefit ratio favors no change other than as noted in my dictated progress note. Diagnosis: Problems: (1) Major depressive disorder (2) Post traumatic stress disorder (3) Anxiety disorder, unspecified (4) Dementia, vascular, with depression (5) Dementia, vascular, with delusions (6) Major neurocognitive disorder MICKY WHEELER MD May 24, 2021 22:06
--- NOTE | 2021-05-25 00:20 | NUR ---
Pt withdrawn to his room, lying in bed when approached. Pt calm, pleasant, and interactive during encounter. Pt cooperative with assessment and compliant with medications administered whole. Pt denies SI at this time.
[2021-05-25 05:58] VITALS: BP 96/52
[2021-05-25 06:06] LABS: BASO % 1 % (0-3); EOS # 0.2 x10^3/uL (0.0-0.7); EOS % 4 % (0-3); HEMATOCRIT 37.1 % (39.0-53.0); HEMOGLOBIN 12.5 g/dL (13.0-17.5); LYMPH % 20 % (24-48); MEAN CORPUSCULAR HEMOGLOBIN 31 pg (25-35); MEAN CORPUSCULAR HGB CONC 34 g/dL (31-37); MEAN CORPUSCULAR VOLUME 93 fL (79-100); MONO # 0.5 x10^3/uL (0.0-1.1); MONO % 9 % (0-9); NEUT # 3.1 x10^3uL (1.8-7.7); NEUT % 65 % (31-73); PLATELET COUNT 91 x10^3/uL (140-400); RED BLOOD COUNT 3.99 x10^6/uL (4.30-5.70); WHITE BLOOD COUNT 4.8 x10^3/uL (4.0-11.0)
[2021-05-25 06:23] LABS: ALBUMIN 2.8 g/dL (3.4-5.0); ALBUMIN/GLOBULIN RATIO 0.8 (1.0-1.7); CALCIUM 8.3 mg/dL (8.5-10.1); CREATININE 1.2 mg/dL (0.7-1.3); GFR 58.3; POTASSIUM 4.1 mmol/L (3.5-5.1); TOTAL BILIRUBIN 0.3 mg/dL (0.2-1.0); TOTAL PROTEIN 6.5 g/dL (6.4-8.2)
[2021-05-25] MEDS: PANTOPRAZOLE 40 MG TABLET. PO SCH (06:25)
[2021-05-25] MEDS: ASPIRIN ENTERIC COATED 81 MG TABLET.DR. PO SCH (08:52)
[2021-05-25] MEDS: DULoxetine HCL 60 MG CAPSULE.DR PO SCH (08:52)
[2021-05-25] MEDS: GABAPENTIN 400 MG CAPSULE. PO SCH ×3 (08:53→20:52)
[2021-05-25] MEDS: TAMSULOSIN 0.4 MG CAP.ER.24H. PO SCH (08:53)
[2021-05-25] MEDS: amLODIPine BESYLATE 5 MG TABLET PO SCH (08:53)
[2021-05-25] MEDS: CYANOCOBALAMIN (VITAMIN B-12) 1,000 MCG TABLET. PO SCH (08:53)
[2021-05-25] MEDS: FOLIC ACID 1 MG TABLET PO SCH (08:53)
[2021-05-25] MEDS: LISINOPRIL 5 MG TABLET. PO SCH (08:54)
[2021-05-25] MEDS: traMADol 50 MG TABLET PO PRN ×3 (08:54→20:54)
[2021-05-25] MEDS: ARIPiprazole 5 MG TABLET PO SCH (08:54)
[2021-05-25] MEDS: POTASSIUM CHLORIDE 20 MEQ TABLET.ER. PO SCH (08:54)
[2021-05-25] MEDS: TIMOLOL 0.25% OPHTH SOLUTION 5ML BOTTLE. OD SCH ×2 (08:55→20:51)
[2021-05-25] MEDS: ATROPINE 1% OPHTH SOLUTION 5ML BOTTLE. OS SCH (08:55)
[2021-05-25] MEDS: DEXAMETHASONE 0.1% OPHTH SOLUTION 5ML BOTTLE. OS SCH ×4 (08:55→20:54)
[2021-05-25] MEDS: FUROSEMIDE 20 MG TABLET PO SCH (08:55)
[2021-05-25] MEDS: CARVEDILOL 12.5 MG TABLET PO SCH ×2 (08:55→17:16)
[2021-05-25] MEDS: levETIRAcetam 500 MG TABLET PO SCH ×2 (08:59→20:52)
[2021-05-25] MEDS: HYDROCORTISONE 1% TOPICAL OINTMENT 30GM TUBE. TP SCH ×2 (09:00→20:54)
[2021-05-25 16:05] VITALS: BP 109/71
[2021-05-25] MEDS: CYPROHEPTADINE 4 MG TABLET. PO SCH (20:51)
[2021-05-25] MEDS: ATORVASTATIN CALCIUM 20 MG TABLET PO SCH (20:52)
[2021-05-25] MEDS: traZODone 50 MG TABLET. PO SCH (20:52)
[2021-05-25] MEDS: MIRTAZAPINE 30 MG TABLET PO SCH (20:54)
--- NOTE | 2021-05-25 22:07 | PDOC ---
Exam Note: Henry Note: This note is a late entry for 05/23/2021 covers elements not covered in my initial note. Subjective: The patient was seen on telehealth rounds in the afternoon of 05/23/2021 as an option during the COVID-19 pandemic period with Darryl BERMUDEZ, discussed and reviewed the chart. He slept 8 hours previous night. The patient remains somewhat isolative, does complain of increased pain in the back. We will defer this to Dr. Mir. Review of Systems: Hard of hearing. Complains of pain. No CV, , pulmonary, eye system symptoms on review. Mental Status Exam: The patient is alert, oriented, quite verbal, appropriate. Speech coherent. Abstraction fair. Computation impaired. Language function intact. Attention span fair. Mood and affect stable. Denies psychotic symptoms, suicidal or homicidal ideation. He states he talked to his grandson and grandson is willing to have him back home and he feels supported by his grandson. Laboratory Data: Reviewed. 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 Anxiety disorder unspecified. Plan: Continue psychotropics from initial note. Adjust further as clinically indicated. Appetite is improved. Periactin has helped with this. Assessment: Vital Signs/I&O: Vital Signs Date Time Temp Pulse Resp B/P (MAP) Pulse Ox O2 Delivery O2 Flow Rate FiO2 05/25/21 20:54 98 05/25/21 17:16 86 109/71 05/25/21 16:05 98.0 20 05/25/21 09:54 Room Air 05/25/21 05:58 2.0 I & O 05/24/21 05/24/21 05/25/21 15:00 23:00 07:00 Intake Total 480 ml 360 ml Balance 480 ml 360 ml Labs: Laboratory Tests Test 05/25/21 05:45 05/25/21 08:02 White Blood Count 4.8 x10^3/uL (4.0-11.0) Red Blood Count 3.99 x10^6/uL (4.30-5.70) L Hemoglobin 12.5 g/dL (13.0-17.5) L Hematocrit 37.1 % (39.0-53.0) L Mean Corpuscular Volume 93 fL (79-100) Mean Corpuscular Hemoglobin 31 pg (25-35) Mean Corpuscular Hemoglobin Concent 34 g/dL (31-37) Red Cell Distribution Width 14.0 % (11.5-14.5) Platelet Count 91 x10^3/uL (140-400) L Neutrophils (%) (Auto) 65 % (31-73) Lymphocytes (%) (Auto) 20 % (24-48) L Monocytes (%) (Auto) 9 % (0-9) Eosinophils (%) (Auto) 4 % (0-3) H Basophils (%) (Auto) 1 % (0-3) Neutrophils # (Auto) 3.1 x10^3uL (1.8-7.7) Lymphocytes # (Auto) 1.0 x10^3/uL (1.0-4.8) Monocytes # (Auto) 0.5 x10^3/uL (0.0-1.1) Eosinophils # (Auto) 0.2 x10^3/uL (0.0-0.7) Basophils # (Auto) 0.0 x10^3/uL (0.0-0.2) Sodium Level 139 mmol/L (136-145) Potassium Level 4.1 mmol/L (3.5-5.1) Chloride Level 103 mmol/L (98-107) Carbon Dioxide Level 32 mmol/L (21-32) Anion Gap 4 (6-14) L Blood Urea Nitrogen 15 mg/dL (8-26) Creatinine 1.2 mg/dL (0.7-1.3) Estimated GFR (Cockcroft-Gault) 58.3 BUN/Creatinine Ratio 13 (6-20) Glucose Level 132 mg/dL (70-99) H Calcium Level 8.3 mg/dL (8.5-10.1) L Total Bilirubin 0.3 mg/dL (0.2-1.0) Aspartate Amino Transferase (AST) 13 U/L (15-37) L Alanine Aminotransferase (ALT) 22 U/L (16-63) Alkaline Phosphatase 90 U/L (46-116) Total Protein 6.5 g/dL (6.4-8.2) Albumin 2.8 g/dL (3.4-5.0) L Albumin/Globulin Ratio 0.8 (1.0-1.7) L Glucose (Fingerstick) 130 mg/dL (70-99) H Current Medications: Meds: Laboratory Tests Test 05/25/21 05:45 05/25/21 08:02 White Blood Count 4.8 x10^3/uL Red Blood Count 3.99 x10^6/uL Hemoglobin 12.5 g/dL Hematocrit 37.1 % Mean Corpuscular Volume 93 fL Mean Corpuscular Hemoglobin 31 pg Mean Corpuscular Hemoglobin Concent 34 g/dL Red Cell Distribution Width 14.0 % Platelet Count 91 x10^3/uL Neutrophils (%) (Auto) 65 % Lymphocytes (%) (Auto) 20 % Monocytes (%) (Auto) 9 % Eosinophils (%) (Auto) 4 % Basophils (%) (Auto) 1 % Neutrophils # (Auto) 3.1 x10^3uL Lymphocytes # (Auto) 1.0 x10^3/uL Monocytes # (Auto) 0.5 x10^3/uL Eosinophils # (Auto) 0.2 x10^3/uL Basophils # (Auto) 0.0 x10^3/uL Sodium Level 139 mmol/L Potassium Level 4.1 mmol/L Chloride Level 103 mmol/L Carbon Dioxide Level 32 mmol/L Anion Gap 4 Blood Urea Nitrogen 15 mg/dL Creatinine 1.2 mg/dL Estimated GFR (Cockcroft-Gault) 58.3 BUN/Creatinine Ratio 13 Glucose Level 132 mg/dL Calcium Level 8.3 mg/dL Total Bilirubin 0.3 mg/dL Aspartate Amino Transf (AST/SGOT) 13 U/L Alanine Aminotransferase (ALT/SGPT) 22 U/L Alkaline Phosphatase 90 U/L Total Protein 6.5 g/dL Albumin 2.8 g/dL Albumin/Globulin Ratio 0.8 Glucose (Fingerstick) 130 mg/dL Current Medications Medications (Trade) Dose Ordered Sig/Shahid Route PRN Reason Start Time Stop Time Status Last Admin Dose Admin Acetaminophen (Tylenol) 650 mg PRN Q6HRS PRN PO MILD PAIN / TEMP > 100.3'F 05/11/21 23:00 05/12/21 00:35 DC Multi-Ingredient Ointment (Analgesic [place]) 1 rocael PRN QID PRN TP MUSCLE PAIN 05/11/21 23:00 05/16/21 11:06 Al Hydroxide/Mg Hydroxide (Mylanta Plus Xs) 15 ml PRN AFTMEALHC PRN PO DYSPEPSIA 05/11/21 23:00 05/21/21 05:55 Magnesium Hydroxide (Milk Of Magnesia) 2,400 mg PRN QHS PRN PO CONSTIPATION-2ND CHOICE 05/11/21 23:00 Acetaminophen (Tylenol) 1,000 mg PRN Q6HRS PRN PO MILD PAIN 1-3 05/12/21 00:30 05/15/21 17:34 Amlodipine Besylate (Norvasc) 5 mg DAILY PO 05/12/21 09:00 05/25/21 08:53 Aspirin (Aspirin Enteric Coated) 81 mg DAILY PO 05/12/21 09:00 05/25/21 08:52 Atorvastatin Calcium (Lipitor) 20 mg QHS PO 05/12/21 21:00 05/25/21 20:52 Atropine Sulfate (Isopto Atropine) 1 drop DAILY OS 05/12/21 09:00 05/25/21 08:55 Docusate Sodium (Colace) 100 mg PRN BID PRN PO CONSTIPATION-1ST CHOICE 05/12/21 00:30 Furosemide (Lasix) 20 mg DAILY PO 05/12/21 09:00 05/25/21 08:55 Gabapentin (Neurontin) 300 mg TID PO 05/12/21 09:00 05/23/21 17:07 DC 05/23/21 14:22 Lisinopril (Prinivil) 5 mg DAILY PO 05/12/21 09:00 05/25/21 08:54 Methocarbamol (Robaxin) 500 mg PRN QHS PRN PO MUSCLE SPASMS 05/12/21 00:30 05/23/21 10:29 Nitroglycerin (Nitrostat) 0.4 mg PRN Q5MIN PRN SL CHEST PAIN 05/12/21 00:30 Sodium Chloride (Gibran-5) 1 drop PRN QID PRN OU dry eye CHOICE #2 05/12/21 00:30 Tamsulosin HCl (Flomax) 0.4 mg DAILY PO 05/12/21 09:00 05/25/21 08:53 Timolol Maleate (Timoptic 0.25% Ophth) 1 drop BID OD 05/12/21 09:00 05/25/21 20:51 Artificial Tears (Artificial Tears) 1 drop PRN BID PRN OU DRY EYE CHOICE #1 05/12/21 01:00 Carvedilol (Coreg) 12.5 mg BIDWMEALS PO 05/12/21 08:00 05/25/21 17:16 Cyanocobalamin (Vitamin B-12) 1,000 mcg DAILY PO 05/12/21 09:00 05/25/21 08:53 Levetiracetam (Keppra) 1,500 mg BID PO 05/12/21 09:00 05/25/21 20:52 Pantoprazole Sodium (Protonix) 40 mg DAILYAC PO 05/12/21 07:30 05/25/21 06:25 Dexamethasone (Maxidex) 1 drop QID OS 05/12/21 09:00 05/25/21 20:54 Non-Formulary Medication (Riboflavin (Vitamin B-2)) 100 mg DAILY PO 05/12/21 09:00 05/14/21 07:09 DC Folic Acid (Folic Acid) 1 mg DAILY PO 05/12/21 09:00 05/25/21 08:53 Methylphenidate HCl (Methylphenidate HCl) 5 mg PRN DAILY PRN PO . 05/12/21 00:30 05/12/21 10:56 DC Mirtazapine (Remeron) 60 mg QHS PO 05/12/21 21:00 05/12/21 10:56 DC Trazodone HCl (Desyrel) 150 mg QHS PO 05/12/21 21:00 05/25/21 20:52 Venlafaxine HCl (Effexor Xr) 75 mg DAILY PO 05/12/21 09:00 05/12/21 19:29 DC 05/12/21 08:44 Melatonin (Melatonin) 3 mg PRN QHS PRN PO INSOMNIA 05/12/21 00:45 Potassium Chloride (Klor-Con) 20 meq DAILY PO 05/12/21 09:00 05/25/21 08:54 Mirtazapine (Remeron) 30 mg QHS PO 05/12/21 21:00 05/25/21 20:54 Dextrose (Dextrose 50%-Water Syringe) 12.5 gm PRN Q15MIN PRN IV SEE COMMENTS 05/12/21 13:00 Hydrocortisone (Cortaid) 1 rocael BID TP 05/12/21 21:00 05/25/21 20:54 Duloxetine HCl (Cymbalta) 30 mg DAILY PO 05/13/21 09:00 05/14/21 10:00 DC 05/14/21 08:58 Duloxetine HCl (Cymbalta) 60 mg DAILY PO 05/15/21 09:00 05/25/21 08:52 Cyproheptadine HCl (Periactin) 2 mg HS PO 05/13/21 21:00 05/25/21 20:51 Aripiprazole (Abilify) 5 mg DAILY PO 05/14/21 09:00 05/25/21 08:54 Tramadol HCl (Ultram) 100 mg PRN Q8HRS PRN PO MOD-SEV PAIN 05/16/21 12:45 05/25/21 20:54 Gabapentin (Neurontin) 400 mg TID PO 05/23/21 21:00 05/25/21 20:52 I have reviewed the current psychotropics carefully including drug interactions. Risk benefit ratio favors no change other than as noted in my dictated progress note. Diagnosis: Problems: (1) Major depressive disorder (2) Post traumatic stress disorder (3) Anxiety disorder, unspecified (4) Dementia, vascular, with depression (5) Dementia, vascular, with delusions (6) Major neurocognitive disorder MICKY WHEELER MD May 25, 2021 22:07
--- NOTE | 2021-05-25 22:31 | PDOC ---
Exam Note: Henry Note: This note is a late entry for 05/24/2021 covers elements not covered in my initial note. Subjective: The patient was seen on telehealth rounds in the afternoon of 05/24/2021 as an option during the COVID-19 pandemic period with Darryl BERMUDEZ, discussed and reviewed the chart. He slept 7-3/4 hours previous night. The patient is spending much time in his room. No active suicidal ideation. He is wanting to go home. Discussed with Nasreen, criminal justice social worker and arrangements have been made for appropriate outpatient follow up before discharge. Review of Systems: Hard of hearing. No CV, , pulmonary, eye system symptoms on review. Mental Status Exam: The patient is awake, alert, oriented. Speech coherent. Abstraction fair. Computation impaired. Language function intact. Attention span fair. Mood and affect improved. No suicidal or homicidal ideation. Laboratory Data: Reviewed. 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 Anxiety disorder unspecified. Plan: Continue psychotropics from initial note. Assessment: Vital Signs/I&O: Vital Signs Date Time Temp Pulse Resp B/P (MAP) Pulse Ox O2 Delivery O2 Flow Rate FiO2 05/25/21 20:54 98 05/25/21 17:16 86 109/71 05/25/21 16:05 98.0 20 05/25/21 09:54 Room Air 05/25/21 05:58 2.0 I & O 05/24/21 05/24/21 05/25/21 15:00 23:00 07:00 Intake Total 480 ml 360 ml Balance 480 ml 360 ml Labs: Laboratory Tests Test 05/25/21 05:45 05/25/21 08:02 White Blood Count 4.8 x10^3/uL (4.0-11.0) Red Blood Count 3.99 x10^6/uL (4.30-5.70) L Hemoglobin 12.5 g/dL (13.0-17.5) L Hematocrit 37.1 % (39.0-53.0) L Mean Corpuscular Volume 93 fL (79-100) Mean Corpuscular Hemoglobin 31 pg (25-35) Mean Corpuscular Hemoglobin Concent 34 g/dL (31-37) Red Cell Distribution Width 14.0 % (11.5-14.5) Platelet Count 91 x10^3/uL (140-400) L Neutrophils (%) (Auto) 65 % (31-73) Lymphocytes (%) (Auto) 20 % (24-48) L Monocytes (%) (Auto) 9 % (0-9) Eosinophils (%) (Auto) 4 % (0-3) H Basophils (%) (Auto) 1 % (0-3) Neutrophils # (Auto) 3.1 x10^3uL (1.8-7.7) Lymphocytes # (Auto) 1.0 x10^3/uL (1.0-4.8) Monocytes # (Auto) 0.5 x10^3/uL (0.0-1.1) Eosinophils # (Auto) 0.2 x10^3/uL (0.0-0.7) Basophils # (Auto) 0.0 x10^3/uL (0.0-0.2) Sodium Level 139 mmol/L (136-145) Potassium Level 4.1 mmol/L (3.5-5.1) Chloride Level 103 mmol/L (98-107) Carbon Dioxide Level 32 mmol/L (21-32) Anion Gap 4 (6-14) L Blood Urea Nitrogen 15 mg/dL (8-26) Creatinine 1.2 mg/dL (0.7-1.3) Estimated GFR (Cockcroft-Gault) 58.3 BUN/Creatinine Ratio 13 (6-20) Glucose Level 132 mg/dL (70-99) H Calcium Level 8.3 mg/dL (8.5-10.1) L Total Bilirubin 0.3 mg/dL (0.2-1.0) Aspartate Amino Transferase (AST) 13 U/L (15-37) L Alanine Aminotransferase (ALT) 22 U/L (16-63) Alkaline Phosphatase 90 U/L (46-116) Total Protein 6.5 g/dL (6.4-8.2) Albumin 2.8 g/dL (3.4-5.0) L Albumin/Globulin Ratio 0.8 (1.0-1.7) L Glucose (Fingerstick) 130 mg/dL (70-99) H Current Medications: Meds: Laboratory Tests Test 05/25/21 05:45 05/25/21 08:02 White Blood Count 4.8 x10^3/uL Red Blood Count 3.99 x10^6/uL Hemoglobin 12.5 g/dL Hematocrit 37.1 % Mean Corpuscular Volume 93 fL Mean Corpuscular Hemoglobin 31 pg Mean Corpuscular Hemoglobin Concent 34 g/dL Red Cell Distribution Width 14.0 % Platelet Count 91 x10^3/uL Neutrophils (%) (Auto) 65 % Lymphocytes (%) (Auto) 20 % Monocytes (%) (Auto) 9 % Eosinophils (%) (Auto) 4 % Basophils (%) (Auto) 1 % Neutrophils # (Auto) 3.1 x10^3uL Lymphocytes # (Auto) 1.0 x10^3/uL Monocytes # (Auto) 0.5 x10^3/uL Eosinophils # (Auto) 0.2 x10^3/uL Basophils # (Auto) 0.0 x10^3/uL Sodium Level 139 mmol/L Potassium Level 4.1 mmol/L Chloride Level 103 mmol/L Carbon Dioxide Level 32 mmol/L Anion Gap 4 Blood Urea Nitrogen 15 mg/dL Creatinine 1.2 mg/dL Estimated GFR (Cockcroft-Gault) 58.3 BUN/Creatinine Ratio 13 Glucose Level 132 mg/dL Calcium Level 8.3 mg/dL Total Bilirubin 0.3 mg/dL Aspartate Amino Transf (AST/SGOT) 13 U/L Alanine Aminotransferase (ALT/SGPT) 22 U/L Alkaline Phosphatase 90 U/L Total Protein 6.5 g/dL Albumin 2.8 g/dL Albumin/Globulin Ratio 0.8 Glucose (Fingerstick) 130 mg/dL Current Medications Medications (Trade) Dose Ordered Sig/Shahid Route PRN Reason Start Time Stop Time Status Last Admin Dose Admin Acetaminophen (Tylenol) 650 mg PRN Q6HRS PRN PO MILD PAIN / TEMP > 100.3'F 05/11/21 23:00 05/12/21 00:35 DC Multi-Ingredient Ointment (Analgesic [place]) 1 rocael PRN QID PRN TP MUSCLE PAIN 05/11/21 23:00 05/16/21 11:06 Al Hydroxide/Mg Hydroxide (Mylanta Plus Xs) 15 ml PRN AFTMEALHC PRN PO DYSPEPSIA 05/11/21 23:00 05/21/21 05:55 Magnesium Hydroxide (Milk Of Magnesia) 2,400 mg PRN QHS PRN PO CONSTIPATION-2ND CHOICE 05/11/21 23:00 Acetaminophen (Tylenol) 1,000 mg PRN Q6HRS PRN PO MILD PAIN 1-3 05/12/21 00:30 05/15/21 17:34 Amlodipine Besylate (Norvasc) 5 mg DAILY PO 05/12/21 09:00 05/25/21 08:53 Aspirin (Aspirin Enteric Coated) 81 mg DAILY PO 05/12/21 09:00 05/25/21 08:52 Atorvastatin Calcium (Lipitor) 20 mg QHS PO 05/12/21 21:00 05/25/21 20:52 Atropine Sulfate (Isopto Atropine) 1 drop DAILY OS 05/12/21 09:00 05/25/21 08:55 Docusate Sodium (Colace) 100 mg PRN BID PRN PO CONSTIPATION-1ST CHOICE 05/12/21 00:30 Furosemide (Lasix) 20 mg DAILY PO 05/12/21 09:00 05/25/21 08:55 Gabapentin (Neurontin) 300 mg TID PO 05/12/21 09:00 05/23/21 17:07 DC 05/23/21 14:22 Lisinopril (Prinivil) 5 mg DAILY PO 05/12/21 09:00 05/25/21 08:54 Methocarbamol (Robaxin) 500 mg PRN QHS PRN PO MUSCLE SPASMS 05/12/21 00:30 05/23/21 10:29 Nitroglycerin (Nitrostat) 0.4 mg PRN Q5MIN PRN SL CHEST PAIN 05/12/21 00:30 Sodium Chloride (Gibran-5) 1 drop PRN QID PRN OU dry eye CHOICE #2 05/12/21 00:30 Tamsulosin HCl (Flomax) 0.4 mg DAILY PO 05/12/21 09:00 05/25/21 08:53 Timolol Maleate (Timoptic 0.25% Oph) 1 drop BID OD 05/12/21 09:00 05/25/21 20:51 Artificial Tears (Artificial Tears) 1 drop PRN BID PRN OU DRY EYE CHOICE #1 05/12/21 01:00 Carvedilol (Coreg) 12.5 mg BIDWMEALS PO 05/12/21 08:00 05/25/21 17:16 Cyanocobalamin (Vitamin B-12) 1,000 mcg DAILY PO 05/12/21 09:00 05/25/21 08:53 Levetiracetam (Keppra) 1,500 mg BID PO 05/12/21 09:00 05/25/21 20:52 Pantoprazole Sodium (Protonix) 40 mg DAILYAC PO 05/12/21 07:30 05/25/21 06:25 Dexamethasone (Maxidex) 1 drop QID OS 05/12/21 09:00 05/25/21 20:54 Non-Formulary Medication (Riboflavin (Vitamin B-2)) 100 mg DAILY PO 05/12/21 09:00 05/14/21 07:09 DC Folic Acid (Folic Acid) 1 mg DAILY PO 05/12/21 09:00 05/25/21 08:53 Methylphenidate HCl (Methylphenidate HCl) 5 mg PRN DAILY PRN PO . 05/12/21 00:30 05/12/21 10:56 DC Mirtazapine (Remeron) 60 mg QHS PO 05/12/21 21:00 05/12/21 10:56 DC Trazodone HCl (Desyrel) 150 mg QHS PO 05/12/21 21:00 05/25/21 20:52 Venlafaxine HCl (Effexor Xr) 75 mg DAILY PO 05/12/21 09:00 05/12/21 19:29 DC 05/12/21 08:44 Melatonin (Melatonin) 3 mg PRN QHS PRN PO INSOMNIA 05/12/21 00:45 Potassium Chloride (Klor-Con) 20 meq DAILY PO 05/12/21 09:00 05/25/21 08:54 Mirtazapine (Remeron) 30 mg QHS PO 05/12/21 21:00 05/25/21 20:54 Dextrose (Dextrose 50%-Water Syringe) 12.5 gm PRN Q15MIN PRN IV SEE COMMENTS 05/12/21 13:00 Hydrocortisone (Cortaid) 1 rocael BID TP 05/12/21 21:00 05/25/21 20:54 Duloxetine HCl (Cymbalta) 30 mg DAILY PO 05/13/21 09:00 05/14/21 10:00 DC 05/14/21 08:58 Duloxetine HCl (Cymbalta) 60 mg DAILY PO 05/15/21 09:00 05/25/21 08:52 Cyproheptadine HCl (Periactin) 2 mg HS PO 05/13/21 21:00 05/25/21 20:51 Aripiprazole (Abilify) 5 mg DAILY PO 05/14/21 09:00 05/25/21 08:54 Tramadol HCl (Ultram) 100 mg PRN Q8HRS PRN PO MOD-SEV PAIN 05/16/21 12:45 05/25/21 20:54 Gabapentin (Neurontin) 400 mg TID PO 05/23/21 21:00 05/25/21 20:52 I have reviewed the current psychotropics carefully including drug interactions. Risk benefit ratio favors no change other than as noted in my dictated progress note. Diagnosis: Problems: (1) Major depressive disorder (2) Post traumatic stress disorder (3) Anxiety disorder, unspecified (4) Dementia, vascular, with depression (5) Dementia, vascular, with delusions (6) Major neurocognitive disorder MICKY WHEELER MD May 25, 2021 22:31
--- NOTE | 2021-05-25 22:52 | PDOC ---
Exam Note: Henry Note: Please also refer to the separate dictated note~for this date of service dictated separately.~Patient seen individually. Discussed the patient with Nursing staff reviewed the chart.~Reviewed interim history and current functioning. Reviewed vital signs,~Labs/ Radiology~and current medications noted below. Continue current treatment with the changes noted in the dictated addendum note Assessment: Vital Signs/I&O: Vital Signs Date Time Temp Pulse Resp B/P (MAP) Pulse Ox O2 Delivery O2 Flow Rate FiO2 05/25/21 20:54 98 05/25/21 17:16 86 109/71 05/25/21 16:05 98.0 20 05/25/21 09:54 Room Air 05/25/21 05:58 2.0 I & O 05/24/21 05/24/21 05/25/21 15:00 23:00 07:00 Intake Total 480 ml 360 ml Balance 480 ml 360 ml Labs: Laboratory Tests Test 05/25/21 05:45 05/25/21 08:02 White Blood Count 4.8 x10^3/uL (4.0-11.0) Red Blood Count 3.99 x10^6/uL (4.30-5.70) L Hemoglobin 12.5 g/dL (13.0-17.5) L Hematocrit 37.1 % (39.0-53.0) L Mean Corpuscular Volume 93 fL (79-100) Mean Corpuscular Hemoglobin 31 pg (25-35) Mean Corpuscular Hemoglobin Concent 34 g/dL (31-37) Red Cell Distribution Width 14.0 % (11.5-14.5) Platelet Count 91 x10^3/uL (140-400) L Neutrophils (%) (Auto) 65 % (31-73) Lymphocytes (%) (Auto) 20 % (24-48) L Monocytes (%) (Auto) 9 % (0-9) Eosinophils (%) (Auto) 4 % (0-3) H Basophils (%) (Auto) 1 % (0-3) Neutrophils # (Auto) 3.1 x10^3uL (1.8-7.7) Lymphocytes # (Auto) 1.0 x10^3/uL (1.0-4.8) Monocytes # (Auto) 0.5 x10^3/uL (0.0-1.1) Eosinophils # (Auto) 0.2 x10^3/uL (0.0-0.7) Basophils # (Auto) 0.0 x10^3/uL (0.0-0.2) Sodium Level 139 mmol/L (136-145) Potassium Level 4.1 mmol/L (3.5-5.1) Chloride Level 103 mmol/L (98-107) Carbon Dioxide Level 32 mmol/L (21-32) Anion Gap 4 (6-14) L Blood Urea Nitrogen 15 mg/dL (8-26) Creatinine 1.2 mg/dL (0.7-1.3) Estimated GFR (Cockcroft-Gault) 58.3 BUN/Creatinine Ratio 13 (6-20) Glucose Level 132 mg/dL (70-99) H Calcium Level 8.3 mg/dL (8.5-10.1) L Total Bilirubin 0.3 mg/dL (0.2-1.0) Aspartate Amino Transferase (AST) 13 U/L (15-37) L Alanine Aminotransferase (ALT) 22 U/L (16-63) Alkaline Phosphatase 90 U/L (46-116) Total Protein 6.5 g/dL (6.4-8.2) Albumin 2.8 g/dL (3.4-5.0) L Albumin/Globulin Ratio 0.8 (1.0-1.7) L Glucose (Fingerstick) 130 mg/dL (70-99) H Current Medications: I have reviewed the current psychotropics carefully including drug interactions. Risk benefit ratio favors no change other than as noted in my dictated progress note. Diagnosis: Problems: (1) Major depressive disorder (2) Post traumatic stress disorder (3) Anxiety disorder, unspecified (4) Dementia, vascular, with depression (5) Dementia, vascular, with delusions (6) Major neurocognitive disorder MICKY WHEELER MD May 25, 2021 22:52
--- NOTE | 2021-05-25 23:59 | NUR ---
Patient is in his room on assumption of care, awake in bed. He is flat, pleasant. Compliant with assessments and medications whole. Complained of a 6/10 left shoulder pain and requested PRN Tramadol with his HS meds. Good effect. He denies SI this shift. He enjoyed a phone conversation with his son. No further complaints of pain or discomfort. He appears to be sleeping comfortably at present time. Will continue to monitor.
[2021-05-26 06:07] VITALS: BP 97/61
[2021-05-26] MEDS: CARVEDILOL 12.5 MG TABLET PO SCH ×2 (08:00→17:18)
[2021-05-26] MEDS: DEXAMETHASONE 0.1% OPHTH SOLUTION 5ML BOTTLE. OS SCH ×4 (09:00→20:28)
[2021-05-26] MEDS: amLODIPine BESYLATE 5 MG TABLET PO SCH (09:00)
[2021-05-26] MEDS: LISINOPRIL 5 MG TABLET. PO SCH (09:00)
[2021-05-26] MEDS: ATROPINE 1% OPHTH SOLUTION 5ML BOTTLE. OS SCH (09:04)
[2021-05-26] MEDS: traMADol 50 MG TABLET PO PRN (09:05)
[2021-05-26] MEDS: HYDROCORTISONE 1% TOPICAL OINTMENT 30GM TUBE. TP SCH ×2 (09:05→20:30)
[2021-05-26] MEDS: TIMOLOL 0.25% OPHTH SOLUTION 5ML BOTTLE. OD SCH ×2 (09:06→20:28)
[2021-05-26] MEDS: CYANOCOBALAMIN (VITAMIN B-12) 1,000 MCG TABLET. PO SCH (09:07)
[2021-05-26] MEDS: GABAPENTIN 400 MG CAPSULE. PO SCH ×3 (09:07→20:29)
[2021-05-26] MEDS: PANTOPRAZOLE 40 MG TABLET. PO SCH (09:08)
[2021-05-26] MEDS: FUROSEMIDE 20 MG TABLET PO SCH (09:08)
[2021-05-26] MEDS: DULoxetine HCL 60 MG CAPSULE.DR PO SCH (09:08)
[2021-05-26] MEDS: TAMSULOSIN 0.4 MG CAP.ER.24H. PO SCH (09:09)
[2021-05-26] MEDS: ASPIRIN ENTERIC COATED 81 MG TABLET.DR. PO SCH (09:09)
[2021-05-26] MEDS: FOLIC ACID 1 MG TABLET PO SCH (09:09)
[2021-05-26] MEDS: ARIPiprazole 5 MG TABLET PO SCH (09:09)
[2021-05-26] MEDS: levETIRAcetam 500 MG TABLET PO SCH ×2 (09:09→20:29)
[2021-05-26] MEDS: POTASSIUM CHLORIDE 20 MEQ TABLET.ER. PO SCH (09:09)
[2021-05-26] MEDS ORDERED: traMADol 50 MG TABLET PO SCH (14:15)
--- NOTE | 2021-05-26 15:00 | NUR ---
Nursing note: Patient in bed room at time of AM med pass and assessment, takes meds whole. He is pleasant, med compliant and cooperative. He continues to have a depressed affect, though he denied having any depression or SI. Patient c/o pain in bilateral shoulders, knees and lower back, PRN given per order. He self propels in wheel chair. Patient went to rest in his bed after breakfast and lunch, then later went to the day room to interact with peers. He is currently in the day room. Plan of care continues, will continue to monitor.
[2021-05-26 15:42] VITALS: BP 137/82
[2021-05-26] MEDS: ATORVASTATIN CALCIUM 20 MG TABLET PO SCH (20:29)
[2021-05-26] MEDS: CYPROHEPTADINE 4 MG TABLET. PO SCH (20:29)
[2021-05-26] MEDS: traZODone 50 MG TABLET. PO SCH (20:29)
[2021-05-26] MEDS: MIRTAZAPINE 30 MG TABLET PO SCH (20:30)
[2021-05-26] MEDS: traMADol 50 MG TABLET PO SCH (20:52)
--- NOTE | 2021-05-26 22:31 | PDOC ---
Exam Note: Henry Note: Please also refer to the separate dictated note~for this date of service dictated separately.~Patient seen individually. Discussed the patient with Nursing staff reviewed the chart.~Reviewed interim history and current functioning. Reviewed vital signs,~Labs/ Radiology~and current medications noted below. Continue current treatment with the changes noted in the dictated addendum note Assessment: Vital Signs/I&O: Vital Signs Date Time Temp Pulse Resp B/P (MAP) Pulse Ox O2 Delivery O2 Flow Rate FiO2 05/26/21 20:52 2 Nasal Cannula 05/26/21 17:18 74 137/82 05/26/21 15:42 98.0 20 05/26/21 14:15 2.0 I & O 05/25/21 05/25/21 05/26/21 15:00 23:00 07:00 Intake Total 810 ml 360 ml Balance 810 ml 360 ml Labs: Laboratory Tests Test 05/26/21 07:35 Glucose (Fingerstick) 115 mg/dL (70-99) H Current Medications: Meds: Current Medications Medications (Trade) Dose Ordered Sig/Shahid Route PRN Reason Start Time Stop Time Status Last Admin Dose Admin Tramadol HCl (Ultram) 100 mg BID PO 05/26/21 21:00 05/26/21 20:52 I have reviewed the current psychotropics carefully including drug interactions. Risk benefit ratio favors no change other than as noted in my dictated progress note. Diagnosis: Problems: (1) Major depressive disorder (2) Post traumatic stress disorder (3) Anxiety disorder, unspecified (4) Dementia, vascular, with depression (5) Dementia, vascular, with delusions (6) Major neurocognitive disorder MICKY WHEELER MD May 26, 2021 22:31
--- NOTE | 2021-05-26 23:11 | NUR ---
Pt laying in bed on assessment. Pt calm and compliant with medication and assessment. Pt is pleasant and interactive this evening. Pt report generalized pain, scheduled tramadol given as ordered. No behaviors noted at this time.
[2021-05-27 05:47] VITALS: BP 103/59
[2021-05-27] MEDS: ATROPINE 1% OPHTH SOLUTION 5ML BOTTLE. OS SCH (08:39)
[2021-05-27] MEDS: HYDROCORTISONE 1% TOPICAL OINTMENT 30GM TUBE. TP SCH ×2 (08:39→20:49)
[2021-05-27] MEDS: TIMOLOL 0.25% OPHTH SOLUTION 5ML BOTTLE. OD SCH ×2 (08:40→20:49)
[2021-05-27] MEDS: DEXAMETHASONE 0.1% OPHTH SOLUTION 5ML BOTTLE. OS SCH ×4 (08:40→20:49)
[2021-05-27] MEDS: DULoxetine HCL 60 MG CAPSULE.DR PO SCH (08:41)
[2021-05-27] MEDS: TAMSULOSIN 0.4 MG CAP.ER.24H. PO SCH (08:41)
[2021-05-27] MEDS: levETIRAcetam 500 MG TABLET PO SCH ×2 (08:41→20:46)
[2021-05-27] MEDS: ASPIRIN ENTERIC COATED 81 MG TABLET.DR. PO SCH (08:41)
[2021-05-27] MEDS: GABAPENTIN 400 MG CAPSULE. PO SCH ×3 (08:41→20:47)
[2021-05-27] MEDS: PANTOPRAZOLE 40 MG TABLET. PO SCH (08:41)
[2021-05-27] MEDS: FUROSEMIDE 20 MG TABLET PO SCH (08:41)
[2021-05-27] MEDS: FOLIC ACID 1 MG TABLET PO SCH (08:42)
[2021-05-27] MEDS: ARIPiprazole 5 MG TABLET PO SCH (08:42)
[2021-05-27] MEDS: CYANOCOBALAMIN (VITAMIN B-12) 1,000 MCG TABLET. PO SCH (08:42)
[2021-05-27] MEDS: amLODIPine BESYLATE 5 MG TABLET PO SCH (08:42)
[2021-05-27] MEDS: traMADol 50 MG TABLET PO SCH ×2 (08:43→20:47)
[2021-05-27] MEDS: POTASSIUM CHLORIDE 20 MEQ TABLET.ER. PO SCH (08:43)
[2021-05-27] MEDS: LISINOPRIL 5 MG TABLET. PO SCH (08:43)
[2021-05-27] MEDS: CARVEDILOL 12.5 MG TABLET PO SCH ×2 (08:44→17:13)
--- NOTE | 2021-05-27 09:26 | PDOC ---
Exam Note: Henry Note: This note is a late entry for 05/25/2021 covers elements not covered in my initial note. Subjective: The patient was seen on telehealth rounds in the afternoon of 05/25/2021 as an option during the COVID-19 pandemic period with Codie BERMUDEZ, discussed and reviewed the chart. He slept 5 hours previous night. Overall the patient is doing better. Denies suicidal ideation. He does complain of some pain, did better with tramadol. Review of Systems: Hard of hearing. No CV, , pulmonary, eye system symptoms on review. Mental Status Exam: The patient is awake, alert, oriented. Speech coherent. Abstraction fair. Computation impaired. Language function intact. Attention span fair. Mood and affect improved. No suicidal or homicidal ideation. Laboratory Data: Reviewed. 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 Anxiety disorder unspecified. Plan: Continue psychotropics from initial note. Assessment: Vital Signs/I&O: Vital Signs Date Time Temp Pulse Resp B/P (MAP) Pulse Ox O2 Delivery O2 Flow Rate FiO2 05/27/21 08:44 59 103/59 05/27/21 08:43 92 Room Air 05/27/21 05:47 97.2 20 2.0 I & O 05/26/21 05/26/21 05/27/21 14:59 22:59 06:59 Intake Total 840 ml 480 ml Balance 840 ml 480 ml Labs: Laboratory Tests Test 05/27/21 07:56 Glucose (Fingerstick) 120 mg/dL (70-99) H Current Medications: Meds: Laboratory Tests Test 05/27/21 07:56 Glucose (Fingerstick) 120 mg/dL Current Medications Medications (Trade) Dose Ordered Sig/Shahid Route PRN Reason Start Time Stop Time Status Last Admin Dose Admin Acetaminophen (Tylenol) 650 mg PRN Q6HRS PRN PO MILD PAIN / TEMP > 100.3'F 05/11/21 23:00 05/12/21 00:35 DC Multi-Ingredient Ointment (Analgesic [place]) 1 rocael PRN QID PRN TP MUSCLE PAIN 05/11/21 23:00 05/16/21 11:06 Al Hydroxide/Mg Hydroxide (Mylanta Plus Xs) 15 ml PRN AFTMEALHC PRN PO DYSPEPSIA 05/11/21 23:00 05/21/21 05:55 Magnesium Hydroxide (Milk Of Magnesia) 2,400 mg PRN QHS PRN PO CONSTIPATION-2ND CHOICE 05/11/21 23:00 Acetaminophen (Tylenol) 1,000 mg PRN Q6HRS PRN PO MILD PAIN 1-3 05/12/21 00:30 05/15/21 17:34 Amlodipine Besylate (Norvasc) 5 mg DAILY PO 05/12/21 09:00 05/27/21 08:42 Aspirin (Aspirin Enteric Coated) 81 mg DAILY PO 05/12/21 09:00 05/27/21 08:41 Atorvastatin Calcium (Lipitor) 20 mg QHS PO 05/12/21 21:00 05/26/21 20:29 Atropine Sulfate (Isopto Atropine) 1 drop DAILY OS 05/12/21 09:00 05/27/21 08:39 Docusate Sodium (Colace) 100 mg PRN BID PRN PO CONSTIPATION-1ST CHOICE 05/12/21 00:30 Furosemide (Lasix) 20 mg DAILY PO 05/12/21 09:00 05/27/21 08:41 Gabapentin (Neurontin) 300 mg TID PO 05/12/21 09:00 05/23/21 17:07 DC 05/23/21 14:22 Lisinopril (Prinivil) 5 mg DAILY PO 05/12/21 09:00 05/27/21 08:43 Methocarbamol (Robaxin) 500 mg PRN QHS PRN PO MUSCLE SPASMS 05/12/21 00:30 05/23/21 10:29 Nitroglycerin (Nitrostat) 0.4 mg PRN Q5MIN PRN SL CHEST PAIN 05/12/21 00:30 Sodium Chloride (Gibran-5) 1 drop PRN QID PRN OU dry eye CHOICE #2 05/12/21 00:30 Tamsulosin HCl (Flomax) 0.4 mg DAILY PO 05/12/21 09:00 05/27/21 08:41 Timolol Maleate (Timoptic 0.25% Ophth) 1 drop BID OD 05/12/21 09:00 05/27/21 08:40 Artificial Tears (Artificial Tears) 1 drop PRN BID PRN OU DRY EYE CHOICE #1 05/12/21 01:00 Carvedilol (Coreg) 12.5 mg BIDWMEALS PO 05/12/21 08:00 05/27/21 08:44 Cyanocobalamin (Vitamin B-12) 1,000 mcg DAILY PO 05/12/21 09:00 05/27/21 08:42 Levetiracetam (Keppra) 1,500 mg BID PO 05/12/21 09:00 05/27/21 08:41 Pantoprazole Sodium (Protonix) 40 mg DAILYAC PO 05/12/21 07:30 05/27/21 08:41 Dexamethasone (Maxidex) 1 drop QID OS 05/12/21 09:00 05/27/21 08:40 Non-Formulary Medication (Riboflavin (Vitamin B-2)) 100 mg DAILY PO 05/12/21 09:00 05/14/21 07:09 DC Folic Acid (Folic Acid) 1 mg DAILY PO 05/12/21 09:00 05/27/21 08:42 Methylphenidate HCl (Methylphenidate HCl) 5 mg PRN DAILY PRN PO . 05/12/21 00:30 05/12/21 10:56 DC Mirtazapine (Remeron) 60 mg QHS PO 05/12/21 21:00 05/12/21 10:56 DC Trazodone HCl (Desyrel) 150 mg QHS PO 05/12/21 21:00 05/26/21 20:29 Venlafaxine HCl (Effexor Xr) 75 mg DAILY PO 05/12/21 09:00 05/12/21 19:29 DC 05/12/21 08:44 Melatonin (Melatonin) 3 mg PRN QHS PRN PO INSOMNIA 05/12/21 00:45 Potassium Chloride (Klor-Con) 20 meq DAILY PO 05/12/21 09:00 05/27/21 08:43 Mirtazapine (Remeron) 30 mg QHS PO 05/12/21 21:00 05/26/21 20:30 Dextrose (Dextrose 50%-Water Syringe) 12.5 gm PRN Q15MIN PRN IV SEE COMMENTS 05/12/21 13:00 Hydrocortisone (Cortaid) 1 rocael BID TP 05/12/21 21:00 05/27/21 08:39 Duloxetine HCl (Cymbalta) 30 mg DAILY PO 05/13/21 09:00 05/14/21 10:00 DC 05/14/21 08:58 Duloxetine HCl (Cymbalta) 60 mg DAILY PO 05/15/21 09:00 05/27/21 08:41 Cyproheptadine HCl (Periactin) 2 mg HS PO 05/13/21 21:00 05/26/21 20:29 Aripiprazole (Abilify) 5 mg DAILY PO 05/14/21 09:00 05/27/21 08:42 Tramadol HCl (Ultram) 100 mg PRN Q8HRS PRN PO MOD-SEV PAIN 05/16/21 12:45 05/26/21 14:16 DC 05/26/21 09:05 Gabapentin (Neurontin) 400 mg TID PO 05/23/21 21:00 05/27/21 08:41 Tramadol HCl (Ultram) 100 mg Q12H PO 05/26/21 14:15 05/26/21 20:35 DC Tramadol HCl (Ultram) 100 mg BID PO 05/26/21 21:00 05/27/21 08:43 Current Medications Medications (Trade) Dose Ordered Sig/Shahid Route PRN Reason Start Time Stop Time Status Last Admin Dose Admin Tramadol HCl (Ultram) 100 mg BID PO 05/26/21 21:00 05/27/21 08:43 I have reviewed the current psychotropics carefully including drug interactions. Risk benefit ratio favors no change other than as noted in my dictated progress note. Diagnosis: Problems: (1) Major depressive disorder (2) Post traumatic stress disorder (3) Anxiety disorder, unspecified (4) Dementia, vascular, with depression (5) Dementia, vascular, with delusions (6) Major neurocognitive disorder MICKY WHEELER MD May 27, 2021 09:26
--- NOTE | 2021-05-27 09:49 | PDOC ---
Exam Note: Henry Note: This note is a late entry for 05/26/2021 covers elements not covered in my initial note. Subjective: The patient was seen on telehealth rounds in the afternoon of 05/26/2021 as an option during the COVID-19 pandemic period with Anita BERMUDEZ, discussed and reviewed the chart. He slept 8-1/2 hours previous night. The patient is receiving scheduled tramadol which is very helpful for the pain. He is more social, interactive. Denies suicidal ideation. He states his mood is better. Review of Systems: He still has some pain which is improved. No CV, , pulmonary, eye system symptoms on review. Mental Status Exam: The patient is reasonably oriented. Speech coherent has some latency. Abstraction fair. Computation impaired. Language function intact. Attention span fair. Mood and affect improved. No suicidal or homicidal ideation. Laboratory Data: Reviewed. 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 Anxiety disorder unspecified. Plan: Continue psychotropics from initial note. Assessment: Vital Signs/I&O: Vital Signs Date Time Temp Pulse Resp B/P (MAP) Pulse Ox O2 Delivery O2 Flow Rate FiO2 05/27/21 08:44 59 103/59 05/27/21 08:43 92 Room Air 05/27/21 05:47 97.2 20 2.0 I & O 05/26/21 05/26/21 05/27/21 14:59 22:59 06:59 Intake Total 840 ml 480 ml Balance 840 ml 480 ml Labs: Laboratory Tests Test 05/27/21 07:56 Glucose (Fingerstick) 120 mg/dL (70-99) H Current Medications: Meds: Laboratory Tests Test 05/27/21 07:56 Glucose (Fingerstick) 120 mg/dL Current Medications Medications (Trade) Dose Ordered Sig/Shahid Route PRN Reason Start Time Stop Time Status Last Admin Dose Admin Acetaminophen (Tylenol) 650 mg PRN Q6HRS PRN PO MILD PAIN / TEMP > 100.3'F 05/11/21 23:00 05/12/21 00:35 DC Multi-Ingredient Ointment (Analgesic [place]) 1 rocael PRN QID PRN TP MUSCLE PAIN 05/11/21 23:00 05/16/21 11:06 Al Hydroxide/Mg Hydroxide (Mylanta Plus Xs) 15 ml PRN AFTMEALHC PRN PO DYSPEPSIA 05/11/21 23:00 05/21/21 05:55 Magnesium Hydroxide (Milk Of Magnesia) 2,400 mg PRN QHS PRN PO CONSTIPATION-2ND CHOICE 05/11/21 23:00 Acetaminophen (Tylenol) 1,000 mg PRN Q6HRS PRN PO MILD PAIN 1-3 05/12/21 00:30 05/15/21 17:34 Amlodipine Besylate (Norvasc) 5 mg DAILY PO 05/12/21 09:00 05/27/21 08:42 Aspirin (Aspirin Enteric Coated) 81 mg DAILY PO 05/12/21 09:00 05/27/21 08:41 Atorvastatin Calcium (Lipitor) 20 mg QHS PO 05/12/21 21:00 05/26/21 20:29 Atropine Sulfate (Isopto Atropine) 1 drop DAILY OS 05/12/21 09:00 05/27/21 08:39 Docusate Sodium (Colace) 100 mg PRN BID PRN PO CONSTIPATION-1ST CHOICE 05/12/21 00:30 Furosemide (Lasix) 20 mg DAILY PO 05/12/21 09:00 05/27/21 08:41 Gabapentin (Neurontin) 300 mg TID PO 05/12/21 09:00 05/23/21 17:07 DC 05/23/21 14:22 Lisinopril (Prinivil) 5 mg DAILY PO 05/12/21 09:00 05/27/21 08:43 Methocarbamol (Robaxin) 500 mg PRN QHS PRN PO MUSCLE SPASMS 05/12/21 00:30 05/23/21 10:29 Nitroglycerin (Nitrostat) 0.4 mg PRN Q5MIN PRN SL CHEST PAIN 05/12/21 00:30 Sodium Chloride (Gibran-5) 1 drop PRN QID PRN OU dry eye CHOICE #2 05/12/21 00:30 Tamsulosin HCl (Flomax) 0.4 mg DAILY PO 05/12/21 09:00 05/27/21 08:41 Timolol Maleate (Timoptic 0.25% Ophth) 1 drop BID OD 05/12/21 09:00 05/27/21 08:40 Artificial Tears (Artificial Tears) 1 drop PRN BID PRN OU DRY EYE CHOICE #1 05/12/21 01:00 Carvedilol (Coreg) 12.5 mg BIDWMEALS PO 05/12/21 08:00 05/27/21 08:44 Cyanocobalamin (Vitamin B-12) 1,000 mcg DAILY PO 05/12/21 09:00 05/27/21 08:42 Levetiracetam (Keppra) 1,500 mg BID PO 05/12/21 09:00 05/27/21 08:41 Pantoprazole Sodium (Protonix) 40 mg DAILYAC PO 05/12/21 07:30 05/27/21 08:41 Dexamethasone (Maxidex) 1 drop QID OS 05/12/21 09:00 05/27/21 08:40 Non-Formulary Medication (Riboflavin (Vitamin B-2)) 100 mg DAILY PO 05/12/21 09:00 05/14/21 07:09 DC Folic Acid (Folic Acid) 1 mg DAILY PO 05/12/21 09:00 05/27/21 08:42 Methylphenidate HCl (Methylphenidate HCl) 5 mg PRN DAILY PRN PO . 05/12/21 00:30 05/12/21 10:56 DC Mirtazapine (Remeron) 60 mg QHS PO 05/12/21 21:00 05/12/21 10:56 DC Trazodone HCl (Desyrel) 150 mg QHS PO 05/12/21 21:00 05/26/21 20:29 Venlafaxine HCl (Effexor Xr) 75 mg DAILY PO 05/12/21 09:00 05/12/21 19:29 DC 05/12/21 08:44 Melatonin (Melatonin) 3 mg PRN QHS PRN PO INSOMNIA 05/12/21 00:45 Potassium Chloride (Klor-Con) 20 meq DAILY PO 05/12/21 09:00 05/27/21 08:43 Mirtazapine (Remeron) 30 mg QHS PO 05/12/21 21:00 05/26/21 20:30 Dextrose (Dextrose 50%-Water Syringe) 12.5 gm PRN Q15MIN PRN IV SEE COMMENTS 05/12/21 13:00 Hydrocortisone (Cortaid) 1 rocael BID TP 05/12/21 21:00 05/27/21 08:39 Duloxetine HCl (Cymbalta) 30 mg DAILY PO 05/13/21 09:00 05/14/21 10:00 DC 05/14/21 08:58 Duloxetine HCl (Cymbalta) 60 mg DAILY PO 05/15/21 09:00 05/27/21 08:41 Cyproheptadine HCl (Periactin) 2 mg HS PO 05/13/21 21:00 05/26/21 20:29 Aripiprazole (Abilify) 5 mg DAILY PO 05/14/21 09:00 05/27/21 08:42 Tramadol HCl (Ultram) 100 mg PRN Q8HRS PRN PO MOD-SEV PAIN 05/16/21 12:45 05/26/21 14:16 DC 05/26/21 09:05 Gabapentin (Neurontin) 400 mg TID PO 05/23/21 21:00 05/27/21 08:41 Tramadol HCl (Ultram) 100 mg Q12H PO 05/26/21 14:15 05/26/21 20:35 DC Tramadol HCl (Ultram) 100 mg BID PO 05/26/21 21:00 05/27/21 08:43 Current Medications Medications (Trade) Dose Ordered Sig/Shahid Route PRN Reason Start Time Stop Time Status Last Admin Dose Admin Tramadol HCl (Ultram) 100 mg BID PO 05/26/21 21:00 05/27/21 08:43 I have reviewed the current psychotropics carefully including drug interactions. Risk benefit ratio favors no change other than as noted in my dictated progress note. Diagnosis: Problems: (1) Major depressive disorder (2) Post traumatic stress disorder (3) Anxiety disorder, unspecified (4) Dementia, vascular, with depression (5) Dementia, vascular, with delusions (6) Major neurocognitive disorder MICKY WHEELER MD May 27, 2021 09:49
--- NOTE | 2021-05-27 15:24 | NUR ---
Nursing note: Patient in dinning room at time of AM med pass and assessment, takes meds whole. He is pleasant, med compliant and cooperative. He denied having any depression or SI. Patient c/o pain in bilateral shoulders, knees and lower back, scheduled pain medication given per order. He self propels in wheel chair or ambulates with walker. Patient to resting in his bed after meals. He is currently in his room. Plan of care continues, will continue to monitor.
[2021-05-27 16:28] VITALS: BP_SYST 127; BP_SYST 143; BP_DIAS 58; BP_DIAS 76
[2021-05-27] MEDS: CYPROHEPTADINE 4 MG TABLET. PO SCH (20:46)
[2021-05-27] MEDS: ATORVASTATIN CALCIUM 20 MG TABLET PO SCH (20:47)
[2021-05-27] MEDS: MIRTAZAPINE 30 MG TABLET PO SCH (20:47)
[2021-05-27] MEDS: traZODone 50 MG TABLET. PO SCH (20:47)
--- NOTE | 2021-05-27 21:54 | PDOC ---
Exam Note: Ehnry Note: Please also refer to the separate dictated note~for this date of service dictated separately.~Patient seen individually. Discussed the patient with Nursing staff reviewed the chart.~Reviewed interim history and current functioning. Reviewed vital signs,~Labs/ Radiology~and current medications noted below. Continue current treatment with the changes noted in the dictated addendum note Assessment: Vital Signs/I&O: Vital Signs Date Time Temp Pulse Resp B/P (MAP) Pulse Ox O2 Delivery O2 Flow Rate FiO2 05/27/21 21:27 93 05/27/21 17:13 69 143/76 05/27/21 16:28 97.3 18 05/27/21 08:43 Room Air 05/27/21 05:47 2.0 I & O 05/26/21 05/26/21 05/27/21 15:00 23:00 07:00 Intake Total 840 ml 480 ml Balance 840 ml 480 ml Labs: Laboratory Tests Test 05/27/21 07:56 Glucose (Fingerstick) 120 mg/dL (70-99) H Current Medications: Meds: Laboratory Tests Test 05/27/21 07:56 Glucose (Fingerstick) 120 mg/dL Current Medications Medications (Trade) Dose Ordered Sig/Shahid Route PRN Reason Start Time Stop Time Status Last Admin Dose Admin Acetaminophen (Tylenol) 650 mg PRN Q6HRS PRN PO MILD PAIN / TEMP > 100.3'F 05/11/21 23:00 05/12/21 00:35 DC Multi-Ingredient Ointment (Analgesic [place]) 1 rocael PRN QID PRN TP MUSCLE PAIN 05/11/21 23:00 05/16/21 11:06 Al Hydroxide/Mg Hydroxide (Mylanta Plus Xs) 15 ml PRN AFTMEALHC PRN PO DYSPEPSIA 05/11/21 23:00 05/21/21 05:55 Magnesium Hydroxide (Milk Of Magnesia) 2,400 mg PRN QHS PRN PO CONSTIPATION-2ND CHOICE 05/11/21 23:00 Acetaminophen (Tylenol) 1,000 mg PRN Q6HRS PRN PO MILD PAIN 1-3 05/12/21 00:30 05/15/21 17:34 Amlodipine Besylate (Norvasc) 5 mg DAILY PO 05/12/21 09:00 05/27/21 08:42 Aspirin (Aspirin Enteric Coated) 81 mg DAILY PO 05/12/21 09:00 05/27/21 08:41 Atorvastatin Calcium (Lipitor) 20 mg QHS PO 05/12/21 21:00 05/27/21 20:47 Atropine Sulfate (Isopto Atropine) 1 drop DAILY OS 05/12/21 09:00 05/27/21 08:39 Docusate Sodium (Colace) 100 mg PRN BID PRN PO CONSTIPATION-1ST CHOICE 05/12/21 00:30 Furosemide (Lasix) 20 mg DAILY PO 05/12/21 09:00 05/27/21 08:41 Gabapentin (Neurontin) 300 mg TID PO 05/12/21 09:00 05/23/21 17:07 DC 05/23/21 14:22 Lisinopril (Prinivil) 5 mg DAILY PO 05/12/21 09:00 05/27/21 08:43 Methocarbamol (Robaxin) 500 mg PRN QHS PRN PO MUSCLE SPASMS 05/12/21 00:30 05/23/21 10:29 Nitroglycerin (Nitrostat) 0.4 mg PRN Q5MIN PRN SL CHEST PAIN 05/12/21 00:30 Sodium Chloride (Gibran-5) 1 drop PRN QID PRN OU dry eye CHOICE #2 05/12/21 00:30 Tamsulosin HCl (Flomax) 0.4 mg DAILY PO 05/12/21 09:00 05/27/21 08:41 Timolol Maleate (Timoptic 0.25% Oph) 1 drop BID OD 05/12/21 09:00 05/27/21 20:49 Artificial Tears (Artificial Tears) 1 drop PRN BID PRN OU DRY EYE CHOICE #1 05/12/21 01:00 Carvedilol (Coreg) 12.5 mg BIDWMEALS PO 05/12/21 08:00 05/27/21 17:13 Cyanocobalamin (Vitamin B-12) 1,000 mcg DAILY PO 05/12/21 09:00 05/27/21 08:42 Levetiracetam (Keppra) 1,500 mg BID PO 05/12/21 09:00 05/27/21 20:46 Pantoprazole Sodium (Protonix) 40 mg DAILYAC PO 05/12/21 07:30 05/27/21 08:41 Dexamethasone (Maxidex) 1 drop QID OS 05/12/21 09:00 05/27/21 20:49 Non-Formulary Medication (Riboflavin (Vitamin B-2)) 100 mg DAILY PO 05/12/21 09:00 05/14/21 07:09 DC Folic Acid (Folic Acid) 1 mg DAILY PO 05/12/21 09:00 05/27/21 08:42 Methylphenidate HCl (Methylphenidate HCl) 5 mg PRN DAILY PRN PO . 05/12/21 00:30 05/12/21 10:56 DC Mirtazapine (Remeron) 60 mg QHS PO 05/12/21 21:00 05/12/21 10:56 DC Trazodone HCl (Desyrel) 150 mg QHS PO 05/12/21 21:00 05/27/21 20:47 Venlafaxine HCl (Effexor Xr) 75 mg DAILY PO 05/12/21 09:00 05/12/21 19:29 DC 05/12/21 08:44 Melatonin (Melatonin) 3 mg PRN QHS PRN PO INSOMNIA 05/12/21 00:45 Potassium Chloride (Klor-Con) 20 meq DAILY PO 05/12/21 09:00 05/27/21 08:43 Mirtazapine (Remeron) 30 mg QHS PO 05/12/21 21:00 05/27/21 20:47 Dextrose (Dextrose 50%-Water Syringe) 12.5 gm PRN Q15MIN PRN IV SEE COMMENTS 05/12/21 13:00 Hydrocortisone (Cortaid) 1 rocael BID TP 05/12/21 21:00 05/27/21 20:49 Duloxetine HCl (Cymbalta) 30 mg DAILY PO 05/13/21 09:00 05/14/21 10:00 DC 05/14/21 08:58 Duloxetine HCl (Cymbalta) 60 mg DAILY PO 05/15/21 09:00 05/27/21 08:41 Cyproheptadine HCl (Periactin) 2 mg HS PO 05/13/21 21:00 05/27/21 20:46 Aripiprazole (Abilify) 5 mg DAILY PO 05/14/21 09:00 05/27/21 08:42 Tramadol HCl (Ultram) 100 mg PRN Q8HRS PRN PO MOD-SEV PAIN 05/16/21 12:45 05/26/21 14:16 DC 05/26/21 09:05 Gabapentin (Neurontin) 400 mg TID PO 05/23/21 21:00 05/27/21 20:47 Tramadol HCl (Ultram) 100 mg Q12H PO 05/26/21 14:15 05/26/21 20:35 DC Tramadol HCl (Ultram) 100 mg BID PO 05/26/21 21:00 05/27/21 20:47 I have reviewed the current psychotropics carefully including drug interactions. Risk benefit ratio favors no change other than as noted in my dictated progress note. Diagnosis: Problems: (1) Major depressive disorder (2) Post traumatic stress disorder (3) Anxiety disorder, unspecified (4) Dementia, vascular, with depression (5) Dementia, vascular, with delusions (6) Major neurocognitive disorder MICKY WHEELER MD May 27, 2021 21:54
--- NOTE | 2021-05-27 22:31 | NUR ---
Pt located in his room this evening laying in bed. Pt calm and pleasant. Denies SI. Compliant with whole medications.
[2021-05-28 05:21] VITALS: BP 109/68
[2021-05-28] MEDS: HYDROCORTISONE 1% TOPICAL OINTMENT 30GM TUBE. TP SCH ×2 (08:23→20:38)
[2021-05-28] MEDS: ARIPiprazole 5 MG TABLET PO SCH (08:24)
[2021-05-28] MEDS: DEXAMETHASONE 0.1% OPHTH SOLUTION 5ML BOTTLE. OS SCH ×4 (08:24→20:39)
[2021-05-28] MEDS: TIMOLOL 0.25% OPHTH SOLUTION 5ML BOTTLE. OD SCH ×2 (08:24→20:40)
[2021-05-28] MEDS: ATROPINE 1% OPHTH SOLUTION 5ML BOTTLE. OS SCH (08:24)
[2021-05-28] MEDS: DULoxetine HCL 60 MG CAPSULE.DR PO SCH (08:25)
[2021-05-28] MEDS: FOLIC ACID 1 MG TABLET PO SCH (08:26)
[2021-05-28] MEDS: CYANOCOBALAMIN (VITAMIN B-12) 1,000 MCG TABLET. PO SCH (08:26)
[2021-05-28] MEDS: TAMSULOSIN 0.4 MG CAP.ER.24H. PO SCH (08:26)
[2021-05-28] MEDS: ASPIRIN ENTERIC COATED 81 MG TABLET.DR. PO SCH (08:26)
[2021-05-28] MEDS: CARVEDILOL 12.5 MG TABLET PO SCH ×2 (08:26→17:00)
[2021-05-28] MEDS: LISINOPRIL 5 MG TABLET. PO SCH (08:26)
[2021-05-28] MEDS: amLODIPine BESYLATE 5 MG TABLET PO SCH (08:27)
[2021-05-28] MEDS: FUROSEMIDE 20 MG TABLET PO SCH (08:27)
[2021-05-28] MEDS: traMADol 50 MG TABLET PO SCH ×2 (08:27→20:38)
[2021-05-28] MEDS: POTASSIUM CHLORIDE 20 MEQ TABLET.ER. PO SCH (08:27)
[2021-05-28] MEDS: PANTOPRAZOLE 40 MG TABLET. PO SCH (08:27)
[2021-05-28] MEDS: GABAPENTIN 400 MG CAPSULE. PO SCH ×3 (08:27→20:37)
[2021-05-28] MEDS: levETIRAcetam 500 MG TABLET PO SCH ×2 (08:28→20:37)
--- NOTE | 2021-05-28 08:46 | PDOC ---
Exam Note: Henry Note: This note is a late entry for 05/27/2021 covers elements not covered in my initial note. Subjective: The patient was seen individually in the evening of 05/27/2021 with Anita BERMUDEZ, discussed and reviewed the chart. He slept 8-1/4 hours previous night. Overall the patient has done well. No suicidal or homicidal ideation. He does complain of diarrhea and I have discussed with nursing staff to use Imodium p.r.n. He was wanting to know about discharge plans and is accepting the plan set up for him by social service staff to include regular outpatient follow up. I addressed this with him. Review of Systems: No CV, , pulmonary, eye system symptoms on review. Mental Status Exam: The patient is reasonably oriented. Speech coherent has some latency. Abstraction fair. Computation impaired. Language function intact. Attention span fair. Mood and affect improved. No suicidal or homicidal ideation. Laboratory Data: Reviewed. 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 Anxiety disorder unspecified. Plan: Continue psychotropics from initial note. Assessment: Vital Signs/I&O: Vital Signs Date Time Temp Pulse Resp B/P (MAP) Pulse Ox O2 Delivery O2 Flow Rate FiO2 05/28/21 08:27 91 05/28/21 08:27 69 109/68 05/28/21 05:21 98.0 18 2.0 05/27/21 08:43 Room Air I & O 05/27/21 05/27/21 05/28/21 15:00 23:00 07:00 Intake Total 600 ml 600 ml Output Total 1 ml Balance 600 ml 599 ml Labs: Laboratory Tests Test 05/28/21 07:59 Glucose (Fingerstick) 152 mg/dL (70-99) H Current Medications: Meds: Laboratory Tests Test 05/28/21 07:59 Glucose (Fingerstick) 152 mg/dL Current Medications Medications (Trade) Dose Ordered Sig/Shahid Route PRN Reason Start Time Stop Time Status Last Admin Dose Admin Acetaminophen (Tylenol) 650 mg PRN Q6HRS PRN PO MILD PAIN / TEMP > 100.3'F 05/11/21 23:00 05/12/21 00:35 DC Multi-Ingredient Ointment (Analgesic [place]) 1 rocael PRN QID PRN TP MUSCLE PAIN 05/11/21 23:00 05/16/21 11:06 Al Hydroxide/Mg Hydroxide (Mylanta Plus Xs) 15 ml PRN AFTMEALHC PRN PO DYSPEPSIA 05/11/21 23:00 05/21/21 05:55 Magnesium Hydroxide (Milk Of Magnesia) 2,400 mg PRN QHS PRN PO CONSTIPATION-2ND CHOICE 05/11/21 23:00 Acetaminophen (Tylenol) 1,000 mg PRN Q6HRS PRN PO MILD PAIN 1-3 05/12/21 00:30 05/15/21 17:34 Amlodipine Besylate (Norvasc) 5 mg DAILY PO 05/12/21 09:00 05/28/21 08:27 Aspirin (Aspirin Enteric Coated) 81 mg DAILY PO 05/12/21 09:00 05/28/21 08:26 Atorvastatin Calcium (Lipitor) 20 mg QHS PO 05/12/21 21:00 05/27/21 20:47 Atropine Sulfate (Isopto Atropine) 1 drop DAILY OS 05/12/21 09:00 05/27/21 08:39 Docusate Sodium (Colace) 100 mg PRN BID PRN PO CONSTIPATION-1ST CHOICE 05/12/21 00:30 Furosemide (Lasix) 20 mg DAILY PO 05/12/21 09:00 05/28/21 08:27 Gabapentin (Neurontin) 300 mg TID PO 05/12/21 09:00 05/23/21 17:07 DC 05/23/21 14:22 Lisinopril (Prinivil) 5 mg DAILY PO 05/12/21 09:00 05/28/21 08:26 Methocarbamol (Robaxin) 500 mg PRN QHS PRN PO MUSCLE SPASMS 05/12/21 00:30 05/23/21 10:29 Nitroglycerin (Nitrostat) 0.4 mg PRN Q5MIN PRN SL CHEST PAIN 05/12/21 00:30 Sodium Chloride (Gibran-5) 1 drop PRN QID PRN OU dry eye CHOICE #2 05/12/21 00:30 Tamsulosin HCl (Flomax) 0.4 mg DAILY PO 05/12/21 09:00 05/28/21 08:26 Timolol Maleate (Timoptic 0.25% Oph) 1 drop BID OD 05/12/21 09:00 05/28/21 08:24 Artificial Tears (Artificial Tears) 1 drop PRN BID PRN OU DRY EYE CHOICE #1 05/12/21 01:00 Carvedilol (Coreg) 12.5 mg BIDWMEALS PO 05/12/21 08:00 05/28/21 08:26 Cyanocobalamin (Vitamin B-12) 1,000 mcg DAILY PO 05/12/21 09:00 05/28/21 08:26 Levetiracetam (Keppra) 1,500 mg BID PO 05/12/21 09:00 05/28/21 08:28 Pantoprazole Sodium (Protonix) 40 mg DAILYAC PO 05/12/21 07:30 05/28/21 08:27 Dexamethasone (Maxidex) 1 drop QID OS 05/12/21 09:00 05/28/21 08:24 Non-Formulary Medication (Riboflavin (Vitamin B-2)) 100 mg DAILY PO 05/12/21 09:00 05/14/21 07:09 DC Folic Acid (Folic Acid) 1 mg DAILY PO 05/12/21 09:00 05/28/21 08:26 Methylphenidate HCl (Methylphenidate HCl) 5 mg PRN DAILY PRN PO . 05/12/21 00:30 05/12/21 10:56 DC Mirtazapine (Remeron) 60 mg QHS PO 05/12/21 21:00 05/12/21 10:56 DC Trazodone HCl (Desyrel) 150 mg QHS PO 05/12/21 21:00 05/27/21 20:47 Venlafaxine HCl (Effexor Xr) 75 mg DAILY PO 05/12/21 09:00 05/12/21 19:29 DC 05/12/21 08:44 Melatonin (Melatonin) 3 mg PRN QHS PRN PO INSOMNIA 05/12/21 00:45 Potassium Chloride (Klor-Con) 20 meq DAILY PO 05/12/21 09:00 05/28/21 08:27 Mirtazapine (Remeron) 30 mg QHS PO 05/12/21 21:00 05/27/21 20:47 Dextrose (Dextrose 50%-Water Syringe) 12.5 gm PRN Q15MIN PRN IV SEE COMMENTS 05/12/21 13:00 Hydrocortisone (Cortaid) 1 rocael BID TP 05/12/21 21:00 05/28/21 08:23 Duloxetine HCl (Cymbalta) 30 mg DAILY PO 05/13/21 09:00 05/14/21 10:00 DC 05/14/21 08:58 Duloxetine HCl (Cymbalta) 60 mg DAILY PO 05/15/21 09:00 05/28/21 08:25 Cyproheptadine HCl (Periactin) 2 mg HS PO 05/13/21 21:00 05/27/21 20:46 Aripiprazole (Abilify) 5 mg DAILY PO 05/14/21 09:00 05/28/21 08:24 Tramadol HCl (Ultram) 100 mg PRN Q8HRS PRN PO MOD-SEV PAIN 05/16/21 12:45 05/26/21 14:16 DC 05/26/21 09:05 Gabapentin (Neurontin) 400 mg TID PO 05/23/21 21:00 05/28/21 08:27 Tramadol HCl (Ultram) 100 mg Q12H PO 05/26/21 14:15 05/26/21 20:35 DC Tramadol HCl (Ultram) 100 mg BID PO 05/26/21 21:00 05/28/21 08:27 I have reviewed the current psychotropics carefully including drug interactions. Risk benefit ratio favors no change other than as noted in my dictated progress note. Diagnosis: Problems: (1) Major depressive disorder (2) Post traumatic stress disorder (3) Anxiety disorder, unspecified (4) Dementia, vascular, with depression (5) Dementia, vascular, with delusions (6) Major neurocognitive disorder MICKY WHEELER MD May 28, 2021 08:46
--- NOTE | 2021-05-28 15:09 | NUR ---
Nursing note: Patient in dinning room at time of AM med pass and assessment, takes meds whole. He is pleasant, med compliant and cooperative. He denied having any depression or SI. Patient c/o pain in bilateral shoulders, knees and lower back, scheduled pain medication given per order. He self propels in wheel chair or ambulates with walker. Patient is isolative to bed room only leaving to go to meals. He states he is having diarrhea all day but hasn't called for this nurse to assess BM visually per request. He is currently in his room. Plan of care continues, will continue to monitor.
[2021-05-28 16:05] VITALS: BP 100/56
[2021-05-28] MEDS: MIRTAZAPINE 30 MG TABLET PO SCH (20:37)
[2021-05-28] MEDS: CYPROHEPTADINE 4 MG TABLET. PO SCH (20:37)
[2021-05-28] MEDS: ATORVASTATIN CALCIUM 20 MG TABLET PO SCH (20:37)
[2021-05-28] MEDS: traZODone 50 MG TABLET. PO SCH (20:38)
--- NOTE | 2021-05-28 21:54 | PDOC ---
Exam Note: Henry Note: Please also refer to the separate dictated note~for this date of service dictated separately.~Patient seen individually. Discussed the patient with Nursing staff reviewed the chart.~Reviewed interim history and current functioning. Reviewed vital signs,~Labs/ Radiology~and current medications noted below. Continue current treatment with the changes noted in the dictated addendum note Assessment: Vital Signs/I&O: Vital Signs Date Time Temp Pulse Resp B/P (MAP) Pulse Ox O2 Delivery O2 Flow Rate FiO2 05/28/21 21:08 93 05/28/21 17:00 60 100/56 05/28/21 16:05 98.0 20 2.0 05/27/21 08:43 Room Air I & O 05/27/21 05/27/21 05/28/21 15:00 23:00 07:00 Intake Total 600 ml 600 ml Output Total 1 ml Balance 600 ml 599 ml Labs: Laboratory Tests Test 05/28/21 07:59 Glucose (Fingerstick) 152 mg/dL (70-99) H Current Medications: Meds: Laboratory Tests Test 05/28/21 07:59 Glucose (Fingerstick) 152 mg/dL Current Medications Medications (Trade) Dose Ordered Sig/Shahid Route PRN Reason Start Time Stop Time Status Last Admin Dose Admin Acetaminophen (Tylenol) 650 mg PRN Q6HRS PRN PO MILD PAIN / TEMP > 100.3'F 05/11/21 23:00 05/12/21 00:35 DC Multi-Ingredient Ointment (Analgesic [place]) 1 rocael PRN QID PRN TP MUSCLE PAIN 05/11/21 23:00 05/16/21 11:06 Al Hydroxide/Mg Hydroxide (Mylanta Plus Xs) 15 ml PRN AFTMEALHC PRN PO DYSPEPSIA 05/11/21 23:00 05/21/21 05:55 Magnesium Hydroxide (Milk Of Magnesia) 2,400 mg PRN QHS PRN PO CONSTIPATION-2ND CHOICE 05/11/21 23:00 Acetaminophen (Tylenol) 1,000 mg PRN Q6HRS PRN PO MILD PAIN 1-3 05/12/21 00:30 05/15/21 17:34 Amlodipine Besylate (Norvasc) 5 mg DAILY PO 05/12/21 09:00 05/28/21 08:27 Aspirin (Aspirin Enteric Coated) 81 mg DAILY PO 05/12/21 09:00 05/28/21 08:26 Atorvastatin Calcium (Lipitor) 20 mg QHS PO 05/12/21 21:00 05/28/21 20:37 Atropine Sulfate (Isopto Atropine) 1 drop DAILY OS 05/12/21 09:00 05/28/21 08:24 Docusate Sodium (Colace) 100 mg PRN BID PRN PO CONSTIPATION-1ST CHOICE 05/12/21 00:30 Furosemide (Lasix) 20 mg DAILY PO 05/12/21 09:00 05/28/21 08:27 Gabapentin (Neurontin) 300 mg TID PO 05/12/21 09:00 05/23/21 17:07 DC 05/23/21 14:22 Lisinopril (Prinivil) 5 mg DAILY PO 05/12/21 09:00 05/28/21 08:26 Methocarbamol (Robaxin) 500 mg PRN QHS PRN PO MUSCLE SPASMS 05/12/21 00:30 05/23/21 10:29 Nitroglycerin (Nitrostat) 0.4 mg PRN Q5MIN PRN SL CHEST PAIN 05/12/21 00:30 Sodium Chloride (Gibran-5) 1 drop PRN QID PRN OU dry eye CHOICE #2 05/12/21 00:30 Tamsulosin HCl (Flomax) 0.4 mg DAILY PO 05/12/21 09:00 05/28/21 08:26 Timolol Maleate (Timoptic 0.25% Ophth) 1 drop BID OD 05/12/21 09:00 05/28/21 20:40 Artificial Tears (Artificial Tears) 1 drop PRN BID PRN OU DRY EYE CHOICE #1 05/12/21 01:00 Carvedilol (Coreg) 12.5 mg BIDWMEALS PO 05/12/21 08:00 05/28/21 08:26 Cyanocobalamin (Vitamin B-12) 1,000 mcg DAILY PO 05/12/21 09:00 05/28/21 08:26 Levetiracetam (Keppra) 1,500 mg BID PO 05/12/21 09:00 05/28/21 20:37 Pantoprazole Sodium (Protonix) 40 mg DAILYAC PO 05/12/21 07:30 05/28/21 08:27 Dexamethasone (Maxidex) 1 drop QID OS 05/12/21 09:00 05/28/21 20:39 Non-Formulary Medication (Riboflavin (Vitamin B-2)) 100 mg DAILY PO 05/12/21 09:00 05/14/21 07:09 DC Folic Acid (Folic Acid) 1 mg DAILY PO 05/12/21 09:00 05/28/21 08:26 Methylphenidate HCl (Methylphenidate HCl) 5 mg PRN DAILY PRN PO . 05/12/21 00:30 05/12/21 10:56 DC Mirtazapine (Remeron) 60 mg QHS PO 05/12/21 21:00 05/12/21 10:56 DC Trazodone HCl (Desyrel) 150 mg QHS PO 05/12/21 21:00 05/28/21 20:38 Venlafaxine HCl (Effexor Xr) 75 mg DAILY PO 05/12/21 09:00 05/12/21 19:29 DC 05/12/21 08:44 Melatonin (Melatonin) 3 mg PRN QHS PRN PO INSOMNIA 05/12/21 00:45 Potassium Chloride (Klor-Con) 20 meq DAILY PO 05/12/21 09:00 05/28/21 08:27 Mirtazapine (Remeron) 30 mg QHS PO 05/12/21 21:00 05/28/21 20:37 Dextrose (Dextrose 50%-Water Syringe) 12.5 gm PRN Q15MIN PRN IV SEE COMMENTS 05/12/21 13:00 Hydrocortisone (Cortaid) 1 rocael BID TP 05/12/21 21:00 05/28/21 20:38 Duloxetine HCl (Cymbalta) 30 mg DAILY PO 05/13/21 09:00 05/14/21 10:00 DC 05/14/21 08:58 Duloxetine HCl (Cymbalta) 60 mg DAILY PO 05/15/21 09:00 05/28/21 08:25 Cyproheptadine HCl (Periactin) 2 mg HS PO 05/13/21 21:00 05/28/21 20:37 Aripiprazole (Abilify) 5 mg DAILY PO 05/14/21 09:00 05/28/21 08:24 Tramadol HCl (Ultram) 100 mg PRN Q8HRS PRN PO MOD-SEV PAIN 05/16/21 12:45 05/26/21 14:16 DC 05/26/21 09:05 Gabapentin (Neurontin) 400 mg TID PO 05/23/21 21:00 05/28/21 20:37 Tramadol HCl (Ultram) 100 mg Q12H PO 05/26/21 14:15 05/26/21 20:35 DC Tramadol HCl (Ultram) 100 mg BID PO 05/26/21 21:00 05/28/21 20:38 I have reviewed the current psychotropics carefully including drug interactions. Risk benefit ratio favors no change other than as noted in my dictated progress note. Diagnosis: Problems: (1) Major depressive disorder (2) Post traumatic stress disorder (3) Anxiety disorder, unspecified (4) Dementia, vascular, with depression (5) Dementia, vascular, with delusions (6) Major neurocognitive disorder MICKY WHEELER MD May 28, 2021 21:53
--- NOTE | 2021-05-28 23:56 | NUR ---
Pt located in his room this evening. Pt calm with flat affect. Compliant with whole medications. Denies SI.
[2021-05-29 05:46] VITALS: BP 114/60
--- NOTE | 2021-05-29 06:18 | PDOC ---
Exam Note: Henry Note: This note is a late entry for 05/28/2021 covers elements not covered in my initial note. Subjective: The patient was seen individually in the evening of 05/28/2021 with Anita BERMUDEZ, discussed and reviewed the chart. He slept 7 hours previous night. The patient is obsessed with having diarrhea yesterday but nursing staff asked him to show it to them and he had diarrhea and he has not been able to do that, states he is not having diarrhea today. He has been up for meals, otherwise, in his room but I met with him in the dayroom this evening. He had many questions about discharge plans which we addressed. No suicidal or homicidal ideation. Review of Systems: No CV, , pulmonary, eye system symptoms on review. Mental Status Exam: The patient is reasonably oriented. Speech coherent has some latency. Abstraction fair. Computation impaired. Language function intact. Attention span fair. Mood and affect improved. No suicidal or homi cidal ideation. Laboratory Data: Reviewed. 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 Anxiety disorder unspecified. Plan: Continue psychotropics from initial note. Assessment: Vital Signs/I&O: Vital Signs Date Time Temp Pulse Resp B/P (MAP) Pulse Ox O2 Delivery O2 Flow Rate FiO2 05/29/21 05:46 97.7 87 22 114/60 (78) 90 Room Air 05/28/21 16:05 2.0 I & O 05/28/21 05/28/21 05/29/21 15:00 23:00 07:00 Intake Total 680 ml 360 ml Balance 680 ml 360 ml Labs: Laboratory Tests Test 05/28/21 07:59 Glucose (Fingerstick) 152 mg/dL (70-99) H Current Medications: Meds: Laboratory Tests Test 05/28/21 07:59 Glucose (Fingerstick) 152 mg/dL Current Medications Medications (Trade) Dose Ordered Sig/Shahid Route PRN Reason Start Time Stop Time Status Last Admin Dose Admin Acetaminophen (Tylenol) 650 mg PRN Q6HRS PRN PO MILD PAIN / TEMP > 100.3'F 05/11/21 23:00 05/12/21 00:35 DC Multi-Ingredient Ointment (Analgesic [place]) 1 rocael PRN QID PRN TP MUSCLE PAIN 05/11/21 23:00 05/16/21 11:06 Al Hydroxide/Mg Hydroxide (Mylanta Plus Xs) 15 ml PRN AFTMEALHC PRN PO DYSPEPSIA 05/11/21 23:00 05/21/21 05:55 Magnesium Hydroxide (Milk Of Magnesia) 2,400 mg PRN QHS PRN PO CONSTIPATION-2ND CHOICE 05/11/21 23:00 Acetaminophen (Tylenol) 1,000 mg PRN Q6HRS PRN PO MILD PAIN 1-3 05/12/21 00:30 05/15/21 17:34 Amlodipine Besylate (Norvasc) 5 mg DAILY PO 05/12/21 09:00 05/28/21 08:27 Aspirin (Aspirin Enteric Coated) 81 mg DAILY PO 05/12/21 09:00 05/28/21 08:26 Atorvastatin Calcium (Lipitor) 20 mg QHS PO 05/12/21 21:00 05/28/21 20:37 Atropine Sulfate (Isopto Atropine) 1 drop DAILY OS 05/12/21 09:00 05/28/21 08:24 Docusate Sodium (Colace) 100 mg PRN BID PRN PO CONSTIPATION-1ST CHOICE 05/12/21 00:30 Furosemide (Lasix) 20 mg DAILY PO 05/12/21 09:00 05/28/21 08:27 Gabapentin (Neurontin) 300 mg TID PO 05/12/21 09:00 05/23/21 17:07 DC 05/23/21 14:22 Lisinopril (Prinivil) 5 mg DAILY PO 05/12/21 09:00 05/28/21 08:26 Methocarbamol (Robaxin) 500 mg PRN QHS PRN PO MUSCLE SPASMS 05/12/21 00:30 05/23/21 10:29 Nitroglycerin (Nitrostat) 0.4 mg PRN Q5MIN PRN SL CHEST PAIN 05/12/21 00:30 Sodium Chloride (Gibran-5) 1 drop PRN QID PRN OU dry eye CHOICE #2 05/12/21 00:30 Tamsulosin HCl (Flomax) 0.4 mg DAILY PO 05/12/21 09:00 05/28/21 08:26 Timolol Maleate (Timoptic 0.25% Oph) 1 drop BID OD 05/12/21 09:00 05/28/21 20:40 Artificial Tears (Artificial Tears) 1 drop PRN BID PRN OU DRY EYE CHOICE #1 05/12/21 01:00 Carvedilol (Coreg) 12.5 mg BIDWMEALS PO 05/12/21 08:00 05/28/21 08:26 Cyanocobalamin (Vitamin B-12) 1,000 mcg DAILY PO 05/12/21 09:00 05/28/21 08:26 Levetiracetam (Keppra) 1,500 mg BID PO 05/12/21 09:00 05/28/21 20:37 Pantoprazole Sodium (Protonix) 40 mg DAILYAC PO 05/12/21 07:30 05/28/21 08:27 Dexamethasone (Maxidex) 1 drop QID OS 05/12/21 09:00 05/28/21 20:39 Non-Formulary Medication (Riboflavin (Vitamin B-2)) 100 mg DAILY PO 05/12/21 09:00 05/14/21 07:09 DC Folic Acid (Folic Acid) 1 mg DAILY PO 05/12/21 09:00 05/28/21 08:26 Methylphenidate HCl (Methylphenidate HCl) 5 mg PRN DAILY PRN PO . 05/12/21 00:30 05/12/21 10:56 DC Mirtazapine (Remeron) 60 mg QHS PO 05/12/21 21:00 05/12/21 10:56 DC Trazodone HCl (Desyrel) 150 mg QHS PO 05/12/21 21:00 05/28/21 20:38 Venlafaxine HCl (Effexor Xr) 75 mg DAILY PO 05/12/21 09:00 05/12/21 19:29 DC 05/12/21 08:44 Melatonin (Melatonin) 3 mg PRN QHS PRN PO INSOMNIA 05/12/21 00:45 Potassium Chloride (Klor-Con) 20 meq DAILY PO 05/12/21 09:00 05/28/21 08:27 Mirtazapine (Remeron) 30 mg QHS PO 05/12/21 21:00 05/28/21 20:37 Dextrose (Dextrose 50%-Water Syringe) 12.5 gm PRN Q15MIN PRN IV SEE COMMENTS 05/12/21 13:00 Hydrocortisone (Cortaid) 1 rocael BID TP 05/12/21 21:00 05/28/21 20:38 Duloxetine HCl (Cymbalta) 30 mg DAILY PO 05/13/21 09:00 05/14/21 10:00 DC 05/14/21 08:58 Duloxetine HCl (Cymbalta) 60 mg DAILY PO 05/15/21 09:00 05/28/21 08:25 Cyproheptadine HCl (Periactin) 2 mg HS PO 05/13/21 21:00 05/28/21 20:37 Aripiprazole (Abilify) 5 mg DAILY PO 05/14/21 09:00 05/28/21 08:24 Tramadol HCl (Ultram) 100 mg PRN Q8HRS PRN PO MOD-SEV PAIN 05/16/21 12:45 05/26/21 14:16 DC 05/26/21 09:05 Gabapentin (Neurontin) 400 mg TID PO 05/23/21 21:00 05/28/21 20:37 Tramadol HCl (Ultram) 100 mg Q12H PO 05/26/21 14:15 05/26/21 20:35 DC Tramadol HCl (Ultram) 100 mg BID PO 05/26/21 21:00 05/28/21 20:38 I have reviewed the current psychotropics carefully including drug interactions. Risk benefit ratio favors no change other than as noted in my dictated progress note. Diagnosis: Problems: (1) Major depressive disorder (2) Post traumatic stress disorder (3) Anxiety disorder, unspecified (4) Dementia, vascular, with depression (5) Dementia, vascular, with delusions (6) Major neurocognitive disorder MICKY WHEELER MD May 29, 2021 06:18
[2021-05-29] MEDS: POTASSIUM CHLORIDE 20 MEQ TABLET.ER. PO SCH (08:08)
[2021-05-29] MEDS: FOLIC ACID 1 MG TABLET PO SCH (08:09)
[2021-05-29] MEDS: levETIRAcetam 500 MG TABLET PO SCH ×2 (08:09→19:55)
[2021-05-29] MEDS: traMADol 50 MG TABLET PO SCH ×2 (08:09→19:56)
[2021-05-29] MEDS: CYANOCOBALAMIN (VITAMIN B-12) 1,000 MCG TABLET. PO SCH (08:09)
[2021-05-29] MEDS: ARIPiprazole 5 MG TABLET PO SCH (08:09)
[2021-05-29] MEDS: amLODIPine BESYLATE 5 MG TABLET PO SCH (08:10)
[2021-05-29] MEDS: CARVEDILOL 12.5 MG TABLET PO SCH ×2 (08:10→17:18)
[2021-05-29] MEDS: LISINOPRIL 5 MG TABLET. PO SCH (08:10)
[2021-05-29] MEDS: FUROSEMIDE 20 MG TABLET PO SCH (08:10)
[2021-05-29] MEDS: DULoxetine HCL 60 MG CAPSULE.DR PO SCH (08:10)
[2021-05-29] MEDS: TAMSULOSIN 0.4 MG CAP.ER.24H. PO SCH (08:10)
[2021-05-29] MEDS: TIMOLOL 0.25% OPHTH SOLUTION 5ML BOTTLE. OD SCH ×2 (08:11→19:57)
[2021-05-29] MEDS: GABAPENTIN 400 MG CAPSULE. PO SCH ×3 (08:11→19:56)
[2021-05-29] MEDS: PANTOPRAZOLE 40 MG TABLET. PO SCH (08:11)
[2021-05-29] MEDS: ATROPINE 1% OPHTH SOLUTION 5ML BOTTLE. OS SCH (08:11)
[2021-05-29] MEDS: DEXAMETHASONE 0.1% OPHTH SOLUTION 5ML BOTTLE. OS SCH ×4 (08:11→19:55)
[2021-05-29] MEDS: ASPIRIN ENTERIC COATED 81 MG TABLET.DR. PO SCH (08:11)
[2021-05-29] MEDS: HYDROCORTISONE 1% TOPICAL OINTMENT 30GM TUBE. TP SCH ×2 (08:13→19:58)
--- NOTE | 2021-05-29 12:55 | NUR ---
Treatment Team Update: Pt is eating 100% of meals and sleeping on an average of 7.5 hours per night. Pt is mostly withdrawn to his room, calm and compliant. Pt continues to deny any SI plans and has not displayed any concerns to hinder discharge. With encouragement pt has attended two groups. SW will schedule all appointments and look at discharge plans for tomorrow.
--- NOTE | 2021-05-29 13:37 | NUR ---
WEEKLY ACTIVITY THERAPY NOTE Date of Admission: 05/11/21 Date of AT Assessment: 05/14 Precipitating behaviors that initiated intake and admission: SI thoughts/plan to jump off balcony at his house; recent family stressors, argument with family members; increased depression, crying spells, and insomnia. Goal aimed: to increase engagement and socialization: Initial Goal: Pt. will participate in at least five individual or Activity Therapy groups before discharge. Weekly progress towards goal: achieved, 04/28 Group participation level: 2 min Weekly highlights: sang during music group Friday, 27 of May snack on Friday afternoon Behaviors observed: withdrawn to room, quiet and pleasant Plan:repeat goal Beneficial adaptations: music, cognitive stimulation
--- NOTE | 2021-05-29 13:48 | NUR ---
[facility] Social Work Discharge Planning Form Patient Name SARWAT FERMIN Admit Date: 11 May 2021 DISCHARGE PLAN Discharge Destination: Home with grandbethel Centeno Assessment: N/A Level II Assessment: N/A Transportation: Pt josué Nesbitt to pick pt up at 10:00 Special Instructions/Notes: Please fax discharge orders, discharge medications and discharge summary to the fax number listed below. DISCHARGE TO HOME: Address: [address] [place] [address] Responsible [employer]: Pt is a self-sign Pharmacy: [facility] Contact Information: [address] [place] [phone] Please fax scripts to primary care. He will have to input them in the system for pt to have them filled via [facility] Psychiatrist/Mental Health Follow Up: Current provider has left Contact Information: [address] [place] [phone] Appointments: Request to contact the facility once discharged to participate in their walk-in clinic until can be re-established with psychiatrist Primary Care Follow Up: Dr. Melvin Adams Contact Information: [facility] [place] [address] Appointment: Monday 06/04 @ 1:30PM Home Health: Pt will request that [facility] physician for cardiac care recommend an agency he/she works with
--- NOTE | 2021-05-29 14:47 | NUR ---
Patient in bed at time of shift change. AM assessment done in dining room during breakfast. Patient calm and compliant with medications. No behaviors noted thus far this shift. Will continue to monitor.
[2021-05-29 15:47] VITALS: BP 129/65
[2021-05-29] MEDS: traZODone 50 MG TABLET. PO SCH (19:55)
[2021-05-29] MEDS: MIRTAZAPINE 30 MG TABLET PO SCH (19:56)
[2021-05-29] MEDS: ATORVASTATIN CALCIUM 20 MG TABLET PO SCH (19:56)
[2021-05-29] MEDS: CYPROHEPTADINE 4 MG TABLET. PO SCH (19:56)
--- NOTE | 2021-05-29 21:56 | PDOC ---
Exam Note: Henry Note: Please also refer to the separate dictated note~for this date of service dictated separately.~Patient seen individually. Discussed the patient with Nursing staff reviewed the chart.~Reviewed interim history and current functioning. Reviewed vital signs,~Labs/ Radiology~and current medications noted below. Continue current treatment with the changes noted in the dictated addendum note Assessment: Vital Signs/I&O: Vital Signs Date Time Temp Pulse Resp B/P (MAP) Pulse Ox O2 Delivery O2 Flow Rate FiO2 05/29/21 19:56 92 05/29/21 17:18 85 129/65 05/29/21 15:47 97.1 16 Nasal Cannula 2.0 I & O 05/28/21 05/28/21 05/29/21 15:00 23:00 07:00 Intake Total 680 ml 360 ml Balance 680 ml 360 ml Labs: Laboratory Tests Test 05/29/21 08:00 Glucose (Fingerstick) 121 mg/dL (70-99) H Current Medications: Meds: Laboratory Tests Test 05/29/21 08:00 Glucose (Fingerstick) 121 mg/dL Current Medications Medications (Trade) Dose Ordered Sig/Shahid Route PRN Reason Start Time Stop Time Status Last Admin Dose Admin Acetaminophen (Tylenol) 650 mg PRN Q6HRS PRN PO MILD PAIN / TEMP > 100.3'F 05/11/21 23:00 05/12/21 00:35 DC Multi-Ingredient Ointment (Analgesic [place]) 1 rocael PRN QID PRN TP MUSCLE PAIN 05/11/21 23:00 05/16/21 11:06 Al Hydroxide/Mg Hydroxide (Mylanta Plus Xs) 15 ml PRN AFTMEALHC PRN PO DYSPEPSIA 05/11/21 23:00 05/21/21 05:55 Magnesium Hydroxide (Milk Of Magnesia) 2,400 mg PRN QHS PRN PO CONSTIPATION-2ND CHOICE 05/11/21 23:00 Acetaminophen (Tylenol) 1,000 mg PRN Q6HRS PRN PO MILD PAIN 1-3 05/12/21 00:30 05/15/21 17:34 Amlodipine Besylate (Norvasc) 5 mg DAILY PO 05/12/21 09:00 05/29/21 08:10 Aspirin (Aspirin Enteric Coated) 81 mg DAILY PO 05/12/21 09:00 05/29/21 08:11 Atorvastatin Calcium (Lipitor) 20 mg QHS PO 05/12/21 21:00 05/29/21 19:56 Atropine Sulfate (Isopto Atropine) 1 drop DAILY OS 05/12/21 09:00 05/29/21 08:11 Docusate Sodium (Colace) 100 mg PRN BID PRN PO CONSTIPATION-1ST CHOICE 05/12/21 00:30 Furosemide (Lasix) 20 mg DAILY PO 05/12/21 09:00 05/29/21 08:10 Gabapentin (Neurontin) 300 mg TID PO 05/12/21 09:00 05/23/21 17:07 DC 05/23/21 14:22 Lisinopril (Prinivil) 5 mg DAILY PO 05/12/21 09:00 05/29/21 08:10 Methocarbamol (Robaxin) 500 mg PRN QHS PRN PO MUSCLE SPASMS 05/12/21 00:30 05/23/21 10:29 Nitroglycerin (Nitrostat) 0.4 mg PRN Q5MIN PRN SL CHEST PAIN 05/12/21 00:30 Sodium Chloride (Gibran-5) 1 drop PRN QID PRN OU dry eye CHOICE #2 05/12/21 00:30 Tamsulosin HCl (Flomax) 0.4 mg DAILY PO 05/12/21 09:00 05/29/21 08:10 Timolol Maleate (Timoptic 0.25% Ophth) 1 drop BID OD 05/12/21 09:00 05/29/21 19:57 Artificial Tears (Artificial Tears) 1 drop PRN BID PRN OU DRY EYE CHOICE #1 05/12/21 01:00 Carvedilol (Coreg) 12.5 mg BIDWMEALS PO 05/12/21 08:00 05/29/21 17:18 Cyanocobalamin (Vitamin B-12) 1,000 mcg DAILY PO 05/12/21 09:00 05/29/21 08:09 Levetiracetam (Keppra) 1,500 mg BID PO 05/12/21 09:00 05/29/21 19:55 Pantoprazole Sodium (Protonix) 40 mg DAILYAC PO 05/12/21 07:30 05/29/21 08:11 Dexamethasone (Maxidex) 1 drop QID OS 05/12/21 09:00 05/29/21 19:55 Non-Formulary Medication (Riboflavin (Vitamin B-2)) 100 mg DAILY PO 05/12/21 09:00 05/14/21 07:09 DC Folic Acid (Folic Acid) 1 mg DAILY PO 05/12/21 09:00 05/29/21 08:09 Methylphenidate HCl (Methylphenidate HCl) 5 mg PRN DAILY PRN PO . 05/12/21 00:30 05/12/21 10:56 DC Mirtazapine (Remeron) 60 mg QHS PO 05/12/21 21:00 05/12/21 10:56 DC Trazodone HCl (Desyrel) 150 mg QHS PO 05/12/21 21:00 05/29/21 19:55 Venlafaxine HCl (Effexor Xr) 75 mg DAILY PO 05/12/21 09:00 05/12/21 19:29 DC 05/12/21 08:44 Melatonin (Melatonin) 3 mg PRN QHS PRN PO INSOMNIA 05/12/21 00:45 Potassium Chloride (Klor-Con) 20 meq DAILY PO 05/12/21 09:00 05/29/21 08:08 Mirtazapine (Remeron) 30 mg QHS PO 05/12/21 21:00 05/29/21 19:56 Dextrose (Dextrose 50%-Water Syringe) 12.5 gm PRN Q15MIN PRN IV SEE COMMENTS 05/12/21 13:00 Hydrocortisone (Cortaid) 1 rocael BID TP 05/12/21 21:00 05/29/21 19:58 Duloxetine HCl (Cymbalta) 30 mg DAILY PO 05/13/21 09:00 05/14/21 10:00 DC 05/14/21 08:58 Duloxetine HCl (Cymbalta) 60 mg DAILY PO 05/15/21 09:00 05/29/21 08:10 Cyproheptadine HCl (Periactin) 2 mg HS PO 05/13/21 21:00 05/29/21 19:56 Aripiprazole (Abilify) 5 mg DAILY PO 05/14/21 09:00 05/29/21 08:09 Tramadol HCl (Ultram) 100 mg PRN Q8HRS PRN PO MOD-SEV PAIN 05/16/21 12:45 05/26/21 14:16 DC 05/26/21 09:05 Gabapentin (Neurontin) 400 mg TID PO 05/23/21 21:00 05/29/21 19:56 Tramadol HCl (Ultram) 100 mg Q12H PO 05/26/21 14:15 05/26/21 20:35 DC Tramadol HCl (Ultram) 100 mg BID PO 05/26/21 21:00 05/29/21 19:56 I have reviewed the current psychotropics carefully including drug interactions. Risk benefit ratio favors no change other than as noted in my dictated progress note. Diagnosis: Problems: (1) Major depressive disorder (2) Post traumatic stress disorder (3) Anxiety disorder, unspecified (4) Dementia, vascular, with depression (5) Dementia, vascular, with delusions (6) Major neurocognitive disorder MICKY WHEELER MD May 29, 2021 21:56
--- NOTE | 2021-05-29 23:19 | NUR ---
Pt located in his room this evening. Compliant with whole medications. Stated he is ready to discharge tomorrow.
[2021-05-30] MEDS ORDERED: ARIP5TAB13 PO (01:33)
[2021-05-30] MEDS ORDERED: CYPR4TAB31 PO (01:34)
[2021-05-30] MEDS ORDERED: DULO60CA6 PO (01:35)
[2021-05-30] MEDS ORDERED: MAG-124 PO (01:36)
[2021-05-30] MEDS ORDERED: HYDR42CR2 TP (01:36)
[2021-05-30] MEDS ORDERED: METH57CR17 TP (01:37)
[2021-05-30] MEDS ORDERED: MAGN24003 PO (01:37)
[2021-05-30] MEDS ORDERED: TRAM100T2 PO (01:39)
[2021-05-30 05:50] VITALS: BP 118/52
[2021-05-30] MEDS: CARVEDILOL 12.5 MG TABLET PO SCH (08:38)
[2021-05-30] MEDS: GABAPENTIN 400 MG CAPSULE. PO SCH (08:38)
[2021-05-30] MEDS: CYANOCOBALAMIN (VITAMIN B-12) 1,000 MCG TABLET. PO SCH (08:38)
[2021-05-30] MEDS: levETIRAcetam 500 MG TABLET PO SCH (08:38)
[2021-05-30] MEDS: traMADol 50 MG TABLET PO SCH (08:38)
[2021-05-30 08:39] VITALS: BP 118/52
[2021-05-30] MEDS: DULoxetine HCL 60 MG CAPSULE.DR PO SCH (08:39)
[2021-05-30] MEDS: ARIPiprazole 5 MG TABLET PO SCH (08:39)
[2021-05-30] MEDS: POTASSIUM CHLORIDE 20 MEQ TABLET.ER. PO SCH (08:39)
[2021-05-30] MEDS: ASPIRIN ENTERIC COATED 81 MG TABLET.DR. PO SCH (08:39)
[2021-05-30] MEDS: FOLIC ACID 1 MG TABLET PO SCH (08:39)
[2021-05-30] MEDS: FUROSEMIDE 20 MG TABLET PO SCH (08:39)
[2021-05-30] MEDS: amLODIPine BESYLATE 5 MG TABLET PO SCH (08:39)
[2021-05-30] MEDS: LISINOPRIL 5 MG TABLET. PO SCH (08:39)
[2021-05-30] MEDS: TAMSULOSIN 0.4 MG CAP.ER.24H. PO SCH (08:39)
[2021-05-30] MEDS: TIMOLOL 0.25% OPHTH SOLUTION 5ML BOTTLE. OD SCH (08:40)
[2021-05-30] MEDS: ATROPINE 1% OPHTH SOLUTION 5ML BOTTLE. OS SCH (08:40)
[2021-05-30] MEDS: PANTOPRAZOLE 40 MG TABLET. PO SCH (08:40)
[2021-05-30] MEDS: DEXAMETHASONE 0.1% OPHTH SOLUTION 5ML BOTTLE. OS SCH (08:40)
--- NOTE | 2021-05-30 08:43 | PDOC ---
Exam Note: Henry Note: This note is a late entry for 05/29/2021 covers elements not covered in my initial note. Subjective: The patient was seen individually in the morning of 05/29/2021 for a treatment team meeting with Lucina Knox (social group worker), Delores, activity therapy and Fabian, discussed and reviewed the chart. He slept 8-3/4 hours previous night. The patient has been isolative, spends much time in his room. He has attended 2 groups in the past week. Subjectively, he states mood is better. No suicidal ideation. I met with him in his room. Review of Systems: No CV, , pulmonary, eye system symptoms on review. He does complain of ongoing pain which is better. Mental Status Exam: The patient is reasonably oriented. Speech coherent has some latency. Abstraction fair. Computation impaired. Language function intact. Attention span fair. Mood and affect improved. No suicidal or homicidal ideation. Laboratory Data: Reviewed. 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 Anxiety disorder unspecified. Plan: Continue psychotropics from initial note. We will transition him to home tomorrow and outpatient services as arranged by Nasreen social group worker. Assessment: Vital Signs/I&O: Vital Signs Date Time Temp Pulse Resp B/P (MAP) Pulse Ox O2 Delivery O2 Flow Rate FiO2 05/30/21 05:50 97.4 65 18 118/52 (74) 91 Nasal Cannula 2.0 I & O 05/29/21 05/29/21 05/30/21 15:00 23:00 07:00 Intake Total 1440 ml 480 ml 120 ml Balance 1440 ml 480 ml 120 ml Labs: Laboratory Tests Test 05/30/21 07:48 Glucose (Fingerstick) 135 mg/dL (70-99) H Current Medications: Meds: Laboratory Tests Test 05/30/21 07:48 Glucose (Fingerstick) 135 mg/dL Current Medications Medications (Trade) Dose Ordered Sig/Shahid Route PRN Reason Start Time Stop Time Status Last Admin Dose Admin Acetaminophen (Tylenol) 650 mg PRN Q6HRS PRN PO MILD PAIN / TEMP > 100.3'F 05/11/21 23:00 05/12/21 00:35 DC Multi-Ingredient Ointment (Analgesic [place]) 1 rocael PRN QID PRN TP MUSCLE PAIN 05/11/21 23:00 05/16/21 11:06 Al Hydroxide/Mg Hydroxide (Mylanta Plus Xs) 15 ml PRN AFTMEALHC PRN PO DYSPEPSIA 05/11/21 23:00 05/21/21 05:55 Magnesium Hydroxide (Milk Of Magnesia) 2,400 mg PRN QHS PRN PO CONSTIPATION-2ND CHOICE 05/11/21 23:00 Acetaminophen (Tylenol) 1,000 mg PRN Q6HRS PRN PO MILD PAIN 1-3 05/12/21 00:30 05/15/21 17:34 Amlodipine Besylate (Norvasc) 5 mg DAILY PO 05/12/21 09:00 05/29/21 08:10 Aspirin (Aspirin Enteric Coated) 81 mg DAILY PO 05/12/21 09:00 05/29/21 08:11 Atorvastatin Calcium (Lipitor) 20 mg QHS PO 05/12/21 21:00 05/29/21 19:56 Atropine Sulfate (Isopto Atropine) 1 drop DAILY OS 05/12/21 09:00 05/29/21 08:11 Docusate Sodium (Colace) 100 mg PRN BID PRN PO CONSTIPATION-1ST CHOICE 05/12/21 00:30 Furosemide (Lasix) 20 mg DAILY PO 05/12/21 09:00 05/29/21 08:10 Gabapentin (Neurontin) 300 mg TID PO 05/12/21 09:00 05/23/21 17:07 DC 05/23/21 14:22 Lisinopril (Prinivil) 5 mg DAILY PO 05/12/21 09:00 05/29/21 08:10 Methocarbamol (Robaxin) 500 mg PRN QHS PRN PO MUSCLE SPASMS 05/12/21 00:30 05/23/21 10:29 Nitroglycerin (Nitrostat) 0.4 mg PRN Q5MIN PRN SL CHEST PAIN 05/12/21 00:30 Sodium Chloride (Gibran-5) 1 drop PRN QID PRN OU dry eye CHOICE #2 05/12/21 00:30 Tamsulosin HCl (Flomax) 0.4 mg DAILY PO 05/12/21 09:00 05/29/21 08:10 Timolol Maleate (Timoptic 0.25% Oph) 1 drop BID OD 05/12/21 09:00 05/29/21 19:57 Artificial Tears (Artificial Tears) 1 drop PRN BID PRN OU DRY EYE CHOICE #1 05/12/21 01:00 Carvedilol (Coreg) 12.5 mg BIDWMEALS PO 05/12/21 08:00 05/29/21 17:18 Cyanocobalamin (Vitamin B-12) 1,000 mcg DAILY PO 05/12/21 09:00 05/29/21 08:09 Levetiracetam (Keppra) 1,500 mg BID PO 05/12/21 09:00 05/29/21 19:55 Pantoprazole Sodium (Protonix) 40 mg DAILYAC PO 05/12/21 07:30 05/29/21 08:11 Dexamethasone (Maxidex) 1 drop QID OS 05/12/21 09:00 05/29/21 19:55 Non-Formulary Medication (Riboflavin (Vitamin B-2)) 100 mg DAILY PO 05/12/21 09:00 05/14/21 07:09 DC Folic Acid (Folic Acid) 1 mg DAILY PO 05/12/21 09:00 05/29/21 08:09 Methylphenidate HCl (Methylphenidate HCl) 5 mg PRN DAILY PRN PO . 05/12/21 00:30 05/12/21 10:56 DC Mirtazapine (Remeron) 60 mg QHS PO 05/12/21 21:00 05/12/21 10:56 DC Trazodone HCl (Desyrel) 150 mg QHS PO 05/12/21 21:00 05/29/21 19:55 Venlafaxine HCl (Effexor Xr) 75 mg DAILY PO 05/12/21 09:00 05/12/21 19:29 DC 05/12/21 08:44 Melatonin (Melatonin) 3 mg PRN QHS PRN PO INSOMNIA 05/12/21 00:45 Potassium Chloride (Klor-Con) 20 meq DAILY PO 05/12/21 09:00 05/29/21 08:08 Mirtazapine (Remeron) 30 mg QHS PO 05/12/21 21:00 05/29/21 19:56 Dextrose (Dextrose 50%-Water Syringe) 12.5 gm PRN Q15MIN PRN IV SEE COMMENTS 05/12/21 13:00 Hydrocortisone (Cortaid) 1 rocael BID TP 05/12/21 21:00 05/29/21 19:58 Duloxetine HCl (Cymbalta) 30 mg DAILY PO 05/13/21 09:00 05/14/21 10:00 DC 05/14/21 08:58 Duloxetine HCl (Cymbalta) 60 mg DAILY PO 05/15/21 09:00 05/29/21 08:10 Cyproheptadine HCl (Periactin) 2 mg HS PO 05/13/21 21:00 05/29/21 19:56 Aripiprazole (Abilify) 5 mg DAILY PO 05/14/21 09:00 05/29/21 08:09 Tramadol HCl (Ultram) 100 mg PRN Q8HRS PRN PO MOD-SEV PAIN 05/16/21 12:45 05/26/21 14:16 DC 05/26/21 09:05 Gabapentin (Neurontin) 400 mg TID PO 05/23/21 21:00 05/29/21 19:56 Tramadol HCl (Ultram) 100 mg Q12H PO 05/26/21 14:15 05/26/21 20:35 DC Tramadol HCl (Ultram) 100 mg BID PO 05/26/21 21:00 05/29/21 19:56 I have reviewed the current psychotropics carefully including drug interactions. Risk benefit ratio favors no change other than as noted in my dictated progress note. Diagnosis: Problems: (1) Major depressive disorder (2) Post traumatic stress disorder (3) Anxiety disorder, unspecified (4) Dementia, vascular, with depression (5) Dementia, vascular, with delusions (6) Major neurocognitive disorder MICKY WHEELER MD May 30, 2021 08:43
[2021-05-30] MEDS: HYDROCORTISONE 1% TOPICAL OINTMENT 30GM TUBE. TP SCH (08:44)
--- NOTE | 2021-05-30 09:57 | NUR ---
Transition Record was faxed to follow-up provider with the following elements: Reason for admission, procedures, tests, principal diagnosis, pending studies, patient instructions, 16/06 contact information for unit, phone number to obtain pending test results, plan for follow-up care, physician follow-up, advanced directive information, and medication list with dose, duration and instructions. This information was included in the following documents: History and physical, lab results, study results, progress notes, social work planning form, DC instruction form, patient visit summary, and medication reconciliation form. Date & time record faxed: 05/30/21 [id number] Record faxed to: Dr. Melvin Adams [phone] Record discussed with/ report given to: Patient and his grandson (Laz).
--- NOTE | 2021-05-30 21:51 | PDOC ---
Exam Note: Henry Note: Please also refer to the separate dictated note~for this date of service dictated separately.~Patient seen individually. Discussed the patient with Nursing staff reviewed the chart.~Reviewed interim history and current functioning. Reviewed vital signs,~Labs/ Radiology~and current medications noted below. Continue current treatment with the changes noted in the dictated addendum note Assessment: Vital Signs/I&O: Vital Signs Date Time Temp Pulse Resp B/P (MAP) Pulse Ox O2 Delivery O2 Flow Rate FiO2 05/30/21 09:08 91 05/30/21 08:39 65 118/52 05/30/21 05:50 97.4 18 Nasal Cannula 2.0 I & O 05/29/21 05/29/21 05/30/21 15:00 23:00 07:00 Intake Total 1440 ml 480 ml 120 ml Balance 1440 ml 480 ml 120 ml Labs: Laboratory Tests Test 05/30/21 07:48 Glucose (Fingerstick) 135 mg/dL (70-99) H Current Medications: Meds: Laboratory Tests Test 05/30/21 07:48 Glucose (Fingerstick) 135 mg/dL Current Medications Medications (Trade) Dose Ordered Sig/Shahid Route PRN Reason Start Time Stop Time Status Last Admin Dose Admin Acetaminophen (Tylenol) 650 mg PRN Q6HRS PRN PO MILD PAIN / TEMP > 100.3'F 05/11/21 23:00 05/12/21 00:35 DC Multi-Ingredient Ointment (Analgesic [place]) 1 rocael PRN QID PRN TP MUSCLE PAIN 05/11/21 23:00 05/30/21 10:00 DC 05/16/21 11:06 Al Hydroxide/Mg Hydroxide (Mylanta Plus Xs) 15 ml PRN AFTMEALHC PRN PO DYSPEPSIA 05/11/21 23:00 05/30/21 10:00 DC 05/21/21 05:55 Magnesium Hydroxide (Milk Of Magnesia) 2,400 mg PRN QHS PRN PO CONSTIPATION-2ND CHOICE 05/11/21 23:00 05/30/21 10:00 DC Acetaminophen (Tylenol) 1,000 mg PRN Q6HRS PRN PO MILD PAIN 1-3 05/12/21 00:30 05/30/21 10:00 DC 05/15/21 17:34 Amlodipine Besylate (Norvasc) 5 mg DAILY PO 05/12/21 09:00 05/30/21 10:00 DC 05/30/21 08:39 Aspirin (Aspirin Enteric Coated) 81 mg DAILY PO 05/12/21 09:00 05/30/21 10:00 DC 05/30/21 08:39 Atorvastatin Calcium (Lipitor) 20 mg QHS PO 05/12/21 21:00 05/30/21 10:00 DC 05/29/21 19:56 Atropine Sulfate (Isopto Atropine) 1 drop DAILY OS 05/12/21 09:00 05/30/21 10:00 DC 05/30/21 08:40 Docusate Sodium (Colace) 100 mg PRN BID PRN PO CONSTIPATION-1ST CHOICE 05/12/21 00:30 05/30/21 10:00 DC Furosemide (Lasix) 20 mg DAILY PO 05/12/21 09:00 05/30/21 10:00 DC 05/30/21 08:39 Gabapentin (Neurontin) 300 mg TID PO 05/12/21 09:00 05/23/21 17:07 DC 05/23/21 14:22 Lisinopril (Prinivil) 5 mg DAILY PO 05/12/21 09:00 05/30/21 10:00 DC 05/30/21 08:39 Methocarbamol (Robaxin) 500 mg PRN QHS PRN PO MUSCLE SPASMS 05/12/21 00:30 05/30/21 10:00 DC 05/23/21 10:29 Nitroglycerin (Nitrostat) 0.4 mg PRN Q5MIN PRN SL CHEST PAIN 05/12/21 00:30 05/30/21 10:00 DC Sodium Chloride (Gibran-5) 1 drop PRN QID PRN OU dry eye CHOICE #2 05/12/21 00:30 05/30/21 10:00 DC Tamsulosin HCl (Flomax) 0.4 mg DAILY PO 05/12/21 09:00 05/30/21 10:00 DC 05/30/21 08:39 Timolol Maleate (Timoptic 0.25% Ophth) 1 drop BID OD 05/12/21 09:00 05/30/21 10:00 DC 05/30/21 08:40 Artificial Tears (Artificial Tears) 1 drop PRN BID PRN OU DRY EYE CHOICE #1 05/12/21 01:00 05/30/21 10:00 DC Carvedilol (Coreg) 12.5 mg BIDWMEALS PO 05/12/21 08:00 05/30/21 10:00 DC 05/30/21 08:38 Cyanocobalamin (Vitamin B-12) 1,000 mcg DAILY PO 05/12/21 09:00 05/30/21 10:00 DC 05/30/21 08:38 Levetiracetam (Keppra) 1,500 mg BID PO 05/12/21 09:00 05/30/21 10:00 DC 05/30/21 08:38 Pantoprazole Sodium (Protonix) 40 mg DAILYAC PO 05/12/21 07:30 05/30/21 10:00 DC 05/30/21 08:40 Dexamethasone (Maxidex) 1 drop QID OS 05/12/21 09:00 05/30/21 10:00 DC 05/30/21 08:40 Non-Formulary Medication (Riboflavin (Vitamin B-2)) 100 mg DAILY PO 05/12/21 09:00 05/14/21 07:09 DC Folic Acid (Folic Acid) 1 mg DAILY PO 05/12/21 09:00 05/30/21 10:00 PA 05/30/21 08:39 Methylphenidate HCl (Methylphenidate HCl) 5 mg PRN DAILY PRN PO . 05/12/21 00:30 05/12/21 10:56 DC Mirtazapine (Remeron) 60 mg QHS PO 05/12/21 21:00 05/12/21 10:56 DC Trazodone HCl (Desyrel) 150 mg QHS PO 05/12/21 21:00 05/30/21 10:00 DC 05/29/21 19:55 Venlafaxine HCl (Effexor Xr) 75 mg DAILY PO 05/12/21 09:00 05/12/21 19:29 DC 05/12/21 08:44 Melatonin (Melatonin) 3 mg PRN QHS PRN PO INSOMNIA 05/12/21 00:45 05/30/21 10:00 DC Potassium Chloride (Klor-Con) 20 meq DAILY PO 05/12/21 09:00 05/30/21 10:00 DC 05/30/21 08:39 Mirtazapine (Remeron) 30 mg QHS PO 05/12/21 21:00 05/30/21 10:00 DC 05/29/21 19:56 Dextrose (Dextrose 50%-Water Syringe) 12.5 gm PRN Q15MIN PRN IV SEE COMMENTS 05/12/21 13:00 05/30/21 10:00 DC Hydrocortisone (Cortaid) 1 rocael BID TP 05/12/21 21:00 05/30/21 10:00 DC 05/30/21 08:44 Duloxetine HCl (Cymbalta) 30 mg DAILY PO 05/13/21 09:00 05/14/21 10:00 DC 05/14/21 08:58 Duloxetine HCl (Cymbalta) 60 mg DAILY PO 05/15/21 09:00 05/30/21 10:00 DC 05/30/21 08:39 Cyproheptadine HCl (Periactin) 2 mg HS PO 05/13/21 21:00 05/30/21 10:00 DC 05/29/21 19:56 Aripiprazole (Abilify) 5 mg DAILY PO 05/14/21 09:00 05/30/21 10:00 DC 05/30/21 08:39 Tramadol HCl (Ultram) 100 mg PRN Q8HRS PRN PO MOD-SEV PAIN 05/16/21 12:45 05/26/21 14:16 DC 05/26/21 09:05 Gabapentin (Neurontin) 400 mg TID PO 05/23/21 21:00 05/30/21 10:00 DC 05/30/21 08:38 Tramadol HCl (Ultram) 100 mg Q12H PO 05/26/21 14:15 05/26/21 20:35 DC Tramadol HCl (Ultram) 100 mg BID PO 05/26/21 21:00 05/30/21 10:00 DC 05/30/21 08:38 I have reviewed the current psychotropics carefully including drug interactions. Risk benefit ratio favors no change other than as noted in my dictated progress note. Diagnosis: Problems: (1) Major depressive disorder (2) Post traumatic stress disorder (3) Anxiety disorder, unspecified (4) Dementia, vascular, with depression (5) Dementia, vascular, with delusions (6) Major neurocognitive disorder MICKY WHEELER MD 7, 2021 21:51
--- NOTE | 2021-05-30 22:37 | DS ---
DATE OF DISCHARGE: 05/30/2021 DISCHARGE SUMMARY/PSYCHIATRIC PROGRESS NOTE This note covers elements not covered in my initial note, 05/30/2021 REASON FOR ADMISSION: Please refer to the admission history for details, but briefly, the patient is an 80-year-old male who was referred to us from the [facility] where he presented from his home with worsening symptoms of depression, feeling hopeless, helpless, worthless and suicidal ideation with a plan to wrap a sheet around his neck and jump from his balcony. He reported family stressors including arguments with family members worsening his depression. He had had marked insomnia, got into a bus and found his way to the [facility]. He is medically stabilized there, then referred to us for inpatient psychiatric stabilization. SIGNIFICANT FINDINGS AND CLINICAL COURSE: Following admission, the patient was seen daily individually by myself from a psychiatric standpoint, medical followup with Dr. Mir/Dr. Yee. The patient was extremely depressed, hopeless, helpless, worthless, with suicidal ideation at admission. Adjustments were made in his psychotropics and he seemed to respond to a combination of Cymbalta 60 mg a day augmented with Abilify 5 mg a day and Periactin was added 2 mg at bedtime to stimulate appetite, which had been very poor at admission. The appetite improved. He was on trazodone 150 mg at bedtime for insomnia, Remeron 30 mg at bedtime for insomnia, melatonin 3 mg at bedtime p.r.n. insomnia, Keppra 1500 mg b.i.d. for seizures, gabapentin 400 mg t.i.d. for chronic pain. The pain had been worsening his mood symptoms in addition to the family conflicts. Gradually mood appeared to improve. He was interactive, brighter, still somewhat withdrawn to his room, but denied any suicidal ideation. Prior to discharge, ambulation impaired with walker. REVIEW OF SYSTEMS: No CV, , pulmonary, eye, ENT system symptoms on review. MENTAL STATUS EXAMINATION: The patient is reasonably oriented. Speech is coherent. Abstraction fair. Computation reasonable, language function intact. Attention span fair. Mood and affect improved. No suicidal or homicidal ideation at discharge. CONDITION ON DISCHARGE: Improved. FINAL DIAGNOSES: Major depressive disorder, recurrent with psychotic features, in partial remission; anxiety disorder, unspecified; impulse control disorder, unspecified, chronic pain was improved. DISCHARGE MEDICATIONS: Please refer to the MRAD. DISCHARGE INSTRUCTIONS: Outpatient psychiatric and medical followup at [facility] in [place] and [facility] as arranged by social service staff prior to discharge. Time for discharge day management greater than [address]: Keven TID: [id number]
== END 2021-05-30 10:00 | disposition home health service (06) | DRG 885 ==
LOC: GEROPSY 22:35
PROVIDERS: ADMIT Psychiatry & Neurology Psychiatry; ATTEND Psychiatry & Neurology Psychiatry
DX: F33.3 Major depressive disorder, recurrent, severe with psychotic symptoms (principal); F01.50 Vascular dementia, unspecified severity, without behavioral disturbance, psychotic disturbance, mood disturbance, and anxiety; J96.11 Chronic respiratory failure with hypoxia; I11.0 Hypertensive heart disease with heart failure; N39.0 Urinary tract infection, site not specified; R45.851 Suicidal ideations; E11.42 Type 2 diabetes mellitus with diabetic polyneuropathy; E78.5 Hyperlipidemia, unspecified; F43.10 Post-traumatic stress disorder, unspecified; F63.9 Impulse disorder, unspecified; G40.909 Epilepsy, unspecified, not intractable, without status epilepticus; G47.00 Insomnia, unspecified; G89.29 Other chronic pain; H35.30 Unspecified macular degeneration; H40.9 Unspecified glaucoma; H54.8 Legal blindness, as defined in USA; I50.9 Heart failure, unspecified; K21.9 Gastro-esophageal reflux disease without esophagitis; N40.0 Benign prostatic hyperplasia without lower urinary tract symptoms; Z88.5 Allergy status to narcotic agent; Z88.8 Allergy status to other drugs, medicaments and biological substances; Z91.040 Latex allergy status; Z79.899 Other long term (current) drug therapy; Z98.41 Cataract extraction status, right eye; Z98.42 Cataract extraction status, left eye; Z95.0 Presence of cardiac pacemaker; Z87.891 Personal history of nicotine dependence; Z86.73 Personal history of transient ischemic attack (TIA), and cerebral infarction without residual deficits
CPT/HCPCS: 36415; 80053; 80061; 81001; 82306; 82607; 82947; 83036; 83540; 83550; 83735; 84436; 84443; 84480; 85025; 85379; 86592; 87077; 87086; 87186; 93005; 97110; 97112; 97116; 97530; 97535